=== PATIENT | female | born 1950 | race Caucasian/White ===

== ENCOUNTER 2018-02-10 12:51 | Outpatient (CLI) | payer MEDICARE | END 2018-02-10 12:52 | disposition home or self-care (01) | LOC: CP 12:51 | PROVIDERS: ATTEND Internal Medicine Critical Care Medicine | DX: J44.9 Chronic obstructive pulmonary disease, unspecified (principal); I26.99 Other pulmonary embolism without acute cor pulmonale | CPT/HCPCS: 94060; 94727; 94729 ==

== ENCOUNTER 2019-11-16 08:17 | Outpatient (CLI) | payer MEDICARE ==
--- NOTE | 2019-11-16 11:50 | PET ---
EXAM: PET/CT HISTORY: 69-year-old female with suspected lung cancer. Abnormal CT scan of the chest dated 09/26/2019 from [facility]. TECHNIQUE: PET scanning with CT attenuation correction was performed from the base of the brain to the proximal thighs following the intravenous administration of 11.2 millicuries [id number]. COMPARISON: None. CORRELATION: CT scan of the chest dated 09/26/2019 FINDINGS: There is hypermetabolic activity in the 2 cm suprahilar left upper lobe lung nodule noted on the CT s can with an SUV of 10.8. No hypermetabolic activity seen in the smaller pulmonary nodules seen on the CT scan. No sayda hypermetabolism is noted in the neck, chest, abdomen or pelvis. No hypermetabolic liver, adrenal or skeletal lesions are seen. There is physiologic activity in the GI and tracts and the visualized portions of the brain. The CT scan used for attenuation correction demonstrates no evidence of pericardial effusion or ascit es. There are small bilateral pleural effusions. There is colonic diverticulosis. IMPRESSION: Findings are highly suspicious for left upper lobe lung malignancy. Small bilateral pleural effusions.
== END 2019-11-16 08:18 | disposition home or self-care (01) ==
LOC: PET 08:17
PROVIDERS: ATTEND Internal Medicine Critical Care Medicine
DX: R91.8 Other nonspecific abnormal finding of lung field (principal); J90 Pleural effusion, not elsewhere classified
CPT/HCPCS: 78815; A9552

== ENCOUNTER 2019-11-24 07:49 | Day surgery (SDC) | payer MEDICARE ==
[2019-11-23 13:59] VITALS: BMI 22.3
[2019-11-24] MEDS ORDERED: Lidocaine 4% PF 5 ML AMP NEB SCH (09:30)
[2019-11-24] MEDS ORDERED: Sodium Chloride 0.9% 1,000 ML IV SCH (09:30)
[2019-11-24] MEDS ORDERED: Fentanyl 100 MCG/2 ML VIAL ONE (09:30)
[2019-11-24] MEDS ORDERED: PROPOFOL 200 MG/20 ML VIAL ONE (10:42)
--- NOTE | 2019-11-24 17:22 | OP ---
DATE OF PROCEDURE: 11/24/2019 PROCEDURE PERFORMED: Bronchoscopy. PREOPERATIVE DIAGNOSIS: Left upper lobe lung mass. POSTOPERATIVE DIAGNOSIS: Left upper lobe lung mass. ANESTHESIA: General anesthesia through LMA. DESCRIPTION OF PROCEDURE: Informed consent was obtained from the patient prior to the procedure. She understood the risks involved including bleeding, infection, external lung puncture, and agreed to proceed. Her Eliquis had been held for 2-1/2 days prior to the procedure. The patient was brought to the endoscopy suite and placed on cardiopulmonary monitoring by the Anesthesia Team. She was sedated and had an LMA placed into her oropharynx. An Olympus bronchoscope was placed through the LMA. The patient's vocal cords were of normal appearance. The trachea was of normal appearance. The right mainstem bronchus, right upper lobe, right middle lobe, right lower lobe were all normal in appearance. Left mainstem bronchus was normal. Left lower lobe was normal in appearance. The left lingular segment was normal in appearance. The apical posterior segment of the left upper lobe showed some narrowing. There was some cobblestoning of the mucosa in that area. A series of brushings were done under fluoroscopy in the apical posterior segment of left upper lobe. One endobronchial biopsy was done at the [place] to the apical posterior segment. She had profuse bleeding from that. Therefore, no other biopsies were attempted. The bleeding was self-limited and stopped. Some washings were obtained from the area. The scope was withdrawn. The LMA was removed. The patient was taken to recovery in stable condition. Job ID: [id number]
== END 2019-11-24 12:30 | disposition home or self-care (01) ==
LOC: SDC 07:49
PROVIDERS: ATTEND Internal Medicine Critical Care Medicine
PROC: 0BB78ZX Excision of Left Main Bronchus, Via Natural or Artificial Opening Endoscopic, Diagnostic (ICD-10-PCS; principal; 2019-11-24)
PROC: 0BBB8ZX Excision of Left Lower Lobe Bronchus, Via Natural or Artificial Opening Endoscopic, Diagnostic (ICD-10-PCS; 2019-11-24)
PROC: 0BD88ZX Extraction of Left Upper Lobe Bronchus, Via Natural or Artificial Opening Endoscopic, Diagnostic (ICD-10-PCS; 2019-11-24)
DX: R91.8 Other nonspecific abnormal finding of lung field (principal); J44.9 Chronic obstructive pulmonary disease, unspecified; F17.210 Nicotine dependence, cigarettes, uncomplicated; I10 Essential (primary) hypertension; Z79.01 Long term (current) use of anticoagulants; Z79.899 Other long term (current) drug therapy; Z86.711 Personal history of pulmonary embolism; Z86.718 Personal history of other venous thrombosis and embolism; Z99.89 Dependence on other enabling machines and devices
CPT/HCPCS: 76000; 88112; 88305; J2704; J3010; J7620

== ENCOUNTER 2020-06-19 09:02 | Outpatient (CLI) | payer MEDICARE ==
--- NOTE | 2020-06-19 10:58 | CT ---
CT OF THE CHEST WITH IV CONTRAST INDICATION: History of left upper lobe lung cancer status post radiation COMPARISON: PET/CT from [facility] dated November 16, 2019 FINDINGS: CHEST: Lungs: Left upper lobe suprahilar mass is slightly smaller measuring 1.9 x 1.1 cm were previously filemon sured approximately 2.1 x 1.6 cm. There is radiation fibrosis change involving the left upper lobe and superior segment of the left lower lobe. Specifically pulmonary nodule that demonstrate no hyperm etabolic uptake on prior PET/CT in the posterior segment of the right upper lobe is stable measuring 6 mm. Small subpleural spiculated pulmonary nodule in the posterior right upper lobe on tiara ge 25 of series 3 measures 4 mm. Severe emphysema is similar appearing. Pleural space: No pleural effusion or pneumothorax is demonstrated. Mediastinum: There is a 9 mm pretracheal lymph node, slightly larger than prior examination where filemon sured 7 mm. There is an enlarged precarinal lymph node measuring 1.4 cm previously measuring 1 cm. Upper abdomen:Stable right hepatic lobe and left renal cyst. Adrenal glands are normal appearing. The re are moderate vascular calcifications seen involving the visualized vasculature. Osseous structures: Interval healing anterolateral left third rib fracture and there is stable suspec khanh healed rib deformities involving the anterolateral right third through fifth ribs that were likely present on the prior exam. No suspicious osteolytic or osteoblastic lesion is seen involving t he visualized thoracolumbar spine or sternum. There is scattered degenerative and osteoarthritic changes. Soft tissues:Normal. IMPRESSION: 1. Findings most consistent with response to therapy. Left suprahilar mass has decreased in size. 2. Radiation induced pneumonitis and interstitial thickening of the left upper lobe and superior segm ent of the left lower lobe. 3. Nonspecific mildly enlarged mediastinal lymph nodes. Continued CT follow-up is recommended. Some o f the enlargement may be related to reactive lymphadenopathy from therapy. 4. Small spiculated pulmonary nodules the right upper lobe are stable. 5. Stable severe emphysema. 6. Right hepatic lobe and left renal cysts. 7. Interval healing anterolateral left rib fracture. Chronic healed right third through fifth rib fra ctures.
== END 2020-06-19 09:03 | disposition home or self-care (01) ==
LOC: SCSCT 09:02
PROVIDERS: ATTEND Radiology Radiation Oncology
DX: C34.12 Malignant neoplasm of upper lobe, left bronchus or lung (principal); R91.8 Other nonspecific abnormal finding of lung field; R59.0 Localized enlarged lymph nodes; J18.9 Pneumonia, unspecified organism; J43.9 Emphysema, unspecified; K76.89 Other specified diseases of liver; N28.1 Cyst of kidney, acquired; S22.32XD Fracture of one rib, left side, subsequent encounter for fracture with routine healing; Z92.3 Personal history of irradiation; Z87.81 Personal history of (healed) traumatic fracture
CPT/HCPCS: 71260; 82565

== ENCOUNTER 2020-07-08 14:19 | Outpatient (CLI) | payer MEDICARE ==
--- NOTE | 2020-07-08 16:16 | RAD ---
AP PELVIS FROGLEG LATERAL OF THE RIGHT HIP: Comparison: None FINDINGS: No definite acute fracture, subluxation is evident. There is mild arthrosis of the right hip. Small p hlebolith seen within the lower pelvis. There is diffuse osteopenia. There is posterior midline fusio n defect at L5 which is within normal limits. IMPRESSION: No acute osseous abnormality. POS: BH
== END 2020-07-08 14:20 | disposition home or self-care (01) ==
LOC: SCSRAD 14:19
PROVIDERS: ATTEND Radiology Radiation Oncology
DX: M25.551 Pain in right hip (principal); Z85.118 Personal history of other malignant neoplasm of bronchus and lung

== ENCOUNTER 2020-09-24 09:07 | Outpatient (CLI) | payer MEDICARE ==
[2020-09-24] MEDS ORDERED: Iopamidol-370 76% 500 ML 1 ML ONE (09:41)
--- NOTE | 2020-09-24 10:04 | CT ---
CT Chest W Con History: Lung cancer Comparison: Chest CT June 2020. PET/CT November 2019 Findings: Severe background emphysema. Slight increase peripheral left upper lobe consolidation. Anterior paratracheal lymph node axial image 39 measures 12 mm in short axis, previously 13 mm. Centr ally necrotic AP window lymph node axial image 35 measures 11 mm in short axis, previously 9 mm. Few foci of bronchial wall thickening and low-grade consolidation within the anterior segment left up per lobe likely posttreatment in nature. Using the same plane of reference the left perihilar soft tissue mass has not grown measuring up to 2 cm. Healing transversely oriented manubrial fracture. No thoracic spine fracture. Multiple old right rib fractures. No acute rib fracture. Healing left anterior third rib fracture. Ol d left posterior rib fractures. Calcified thyroid nodules bilaterally. No hepatic mass suspicious for malignancy is appreciated. Adrenal glands are unremarkable. Heart size is enlarged. Pulmonary arteries are enlarged. 6 mm nodule posterior aspect right upper lobe is similar. Scattered peripheral micronodules are simil ar, some with a pleural tail. Impression: 1. Stable disease with size unchanged left upper lobe mass and no significant enlargement of mediasti nal adenopathy. 2. Mild progressive postradiation change left upper lobe. 3. No new suspicious pulmonary nodule or enlargement of known pulmonary nodules. 4. Healing transversely oriented manubrial fracture.
== END 2020-09-24 09:08 | disposition home or self-care (01) ==
LOC: BICCT 09:07
PROVIDERS: ATTEND Radiology Radiation Oncology
DX: C34.12 Malignant neoplasm of upper lobe, left bronchus or lung (principal); M25.551 Pain in right hip; S22.21XD Fracture of manubrium, subsequent encounter for fracture with routine healing; R91.8 Other nonspecific abnormal finding of lung field; Z92.3 Personal history of irradiation; Z98.890 Other specified postprocedural states
CPT/HCPCS: 71260; 82565; Q9967

== ENCOUNTER 2020-09-30 09:56 | Outpatient (CLI) | payer MEDICARE ==
--- NOTE | 2020-09-30 14:50 | NM ---
Radionucleotide bone scan HISTORY: Right hip and leg pain for one month. Fall approximately one year ago onto the left side. Erica ng cancer. FINDINGS: Horizontal uptake at the manubrial sternum correlates with a healing fracture on the CT gillian [address] 09/24/2020 that was not present on the CT from 06/19/2020. Uptake associated with a healing fracture at the anterior aspect of the left third rib is also present. Uptake about the ethmoid air c ells likely related to sinus disease At the medial aspect of the right iliac body, abutting the sacroiliac joint is a vertically oriented, somewhat irregular peripheral area of increased activity with a lucent center. It extends inferiorly to approach the right acetabulum. IMPRESSION : Subacute and old fractures of the manubrium and left third rib. The abnormality involving the right pelvis, especially in the setting of a new sternal fracture, is m ore likely related to trauma than to a metastasis. The most efficient next exam would be a CT pelvis noncontrast to help differentiate. Findings were discussed with Dr. Ramirez at the time of the exam. CT pelvis will be scheduled.
== END 2020-09-30 09:57 | disposition home or self-care (01) ==
LOC: NM 09:56
PROVIDERS: ATTEND Radiology Radiation Oncology
DX: C34.12 Malignant neoplasm of upper lobe, left bronchus or lung (principal); M25.551 Pain in right hip; R94.8 Abnormal results of function studies of other organs and systems
CPT/HCPCS: 78306; A9503

== ENCOUNTER 2020-10-07 15:47 | Outpatient (CLI) | payer MEDICARE ==
--- NOTE | 2020-10-07 16:24 | CT ---
CT pelvis noncontrast HISTORY: Abnormal bone scan. Pelvic pain. Lung cancer. FINDINGS: Centered within the right iliac body, a destructive, expansile soft tissue density mass filemon sures up to 4.9 cm length by 4.3 cm depth by 3.2 cm width and extends into the sacroiliac joint. It destroys the anterior cortex of the overlying iliac bone and extends into the right iliacus muscle. T his is in the area of abnormality on bone scan. No other bone lesions are apparent. There is calcification within the arterial structures. Cyst at th e inferior pole of the left kidney is 2.7 cm oblique diameter on the axial images. Diverticula arise from the partially visualized colon without adjacent inflammation. IMPRESSION : Large destructive mass involving the right iliac bone with extension into the right iliacus muscle. G iven this metastatic focus, the left rib and sternal abnormalities on recent bone scan could also represent pathologic fractures.
== END 2020-10-07 15:48 | disposition home or self-care (01) ==
LOC: BICCT 15:47
PROVIDERS: ATTEND Radiology Radiation Oncology
DX: M25.559 Pain in unspecified hip (principal); C34.12 Malignant neoplasm of upper lobe, left bronchus or lung; M89.8X8 Other specified disorders of bone, other site
CPT/HCPCS: 72192

== ENCOUNTER 2020-10-18 08:25 | Day surgery (SDC) | payer MEDICARE ==
[2020-10-17 12:58] VITALS: BMI 22.1
[2020-10-18 08:54] LABS: #Eosinphils 0.2 thou/uL (0.0-0.7); #Neutrophils 6.2 thou/uL (1.40-6.50); %Basophils 0.4 % (0.0-1.0); %Lymphocytes 21.3 % (21.0-51.0); %Monocytes 10.2 % (0.0-10.0); %Neutrophils 66.1 % (42.0-75.0); Mean Corpuscular HGB CONC 33.2 g/dL (32.0-36.0); Mean Corpuscular Hemoglobin 30.6 pg (27.0-31.0); Mean Corpuscular Volume 92.2 fL (78.0-98.0); Mean Platelet Volume 6.9 fL (7.4-10.4); Platelet Count 241 thou/uL (130-400); RBC Distribution Width 12.3 % (11.5-14.5); Red Blood Cell (RBC) Count 4.57 mill/uL (4.20-5.40); White Blood Cell (WBC) Count 9.3 thou/uL (4.8-10.8)
[2020-10-18 09:04] LABS: PTT 25.5 sec (22.9-36.1); Prothrombin Time 13.5 sec (12.0-14.7)
--- NOTE | 2020-10-18 11:23 | CT ---
CT-guided biopsy right iliac bone mass Conscious sedation: Approximately 40 minutes spent with the patient for conscious sedation. HISTORY: Bone mass. Lung cancer. FINDINGS: After explaining the procedure and answering all questions, limited CT imaging of the pelvi s was performed with patient prone. Sterile technique, buffered local anesthesia, CT guidance, and a posterior approach were used to care fully advance an 11-gauge bone biopsy needle through the posterior cortex of the iliac bone, directed towards the destructive soft tissue mass in the iliac bone body. Needle directed away from t he sacroiliac joint. As instructed by Dr. Paredes from pathology, a small amount of blood aspirate was obtained (only a sm all amount would aspirate). An 18-gauge core specimen was then obtained through the trocar needle. As instructed by Dr. Paredes from pathology, 11-gauge core over a length of 2.5 cm was obtained with the bone biopsy needle and drill. As per routine technique with the bone system and as clearly stated prior to retrieval of the 11-gauge specimen, the needle was removed. Clotted blood and very li mited tissue was acquired. Postprocedure imaging shows no evidence of complication. Patient tolerated the procedure well and was returned to the holding area in good condition for [employer] [facility] monitoring. IMPRESSION : Technically successful CT-guided biopsy right iliac bone mass.
[2020-10-18 15:39] VITALS: BP 153/85; TEMP 99.4
--- NOTE | 2020-10-18 15:54 | CT ---
CT-guided biopsy right iliac bone mass Conscious sedation: Approximately 40 minutes spent with the patient for conscious sedation. HISTORY: Bone mass. Lung cancer. FINDINGS: After explaining the procedure and answering all questions, limited CT imaging of the pelvi s was performed with patient prone. Sterile technique, buffered local anesthesia, CT guidance, and a posterior approach were used to care fully advance an 11-gauge bone biopsy needle through the posterior cortex of the iliac bone, directed towards the destructive soft tissue mass in the iliac bone body. Needle directed away from t he sacroiliac joint. As instructed by Dr. Paredes from pathology, a small amount of blood aspirate was obtained (only a sm all amount would aspirate). An 18-gauge core specimen was then obtained through the trocar needle. As instructed by Dr. Paredes from pathology, 11-gauge core over a length of 2.5 cm was obtained with the bone biopsy needle and drill. As per routine technique with the bone system and as clearly stated prior to retrieval of the 11-gauge specimen, the needle was removed. Clotted blood and very li mited tissue was acquired. Postprocedure imaging shows no evidence of complication. Patient tolerated the procedure well and was returned to the holding area in good condition for [facility] er monitoring. IMPRESSION : Technically successful CT-guided biopsy right iliac bone mass. Transcribed Date/Time: 10/18/2020 3:54 PM
== END 2020-10-18 11:45 | disposition home or self-care (01) ==
LOC: CT 08:25
PROVIDERS: ATTEND Radiology Radiation Oncology
PROC: 0QB23ZX Excision of Right Pelvic Bone, Percutaneous Approach, Diagnostic (ICD-10-PCS; principal; 2020-10-18)
DX: C34.12 Malignant neoplasm of upper lobe, left bronchus or lung (principal); C79.51 Secondary malignant neoplasm of bone; J44.1 Chronic obstructive pulmonary disease with (acute) exacerbation; I10 Essential (primary) hypertension; Z79.01 Long term (current) use of anticoagulants; Z79.899 Other long term (current) drug therapy; Z86.711 Personal history of pulmonary embolism; Z86.718 Personal history of other venous thrombosis and embolism; Z87.891 Personal history of nicotine dependence; Z88.0 Allergy status to penicillin
CPT/HCPCS: 20225; 36415; 77012; 85025; 85610; 85730; 88307; 88341; 88342

== ENCOUNTER 2020-10-21 18:04 | Inpatient (IN) | payer MEDICARE ==
[~2020-10-21 18:04] MED LIST: Fentanyl 100 MCG/2 ML VIAL ONE; Iopamidol-370 76% 500 ML 1 ML ONE; Midazolam HCl 2 mg/2 ml Vial ONE; Sodium Bicarbonate 2.5 MEQ/5 ML VIAL ONE
[2020-10-21 19:03] LABS: #Eosinphils 0.1 thou/uL (0.0-0.7); #Lymphocytes 1.5 thou/uL (1.20-3.40); #Monocytes 0.8 thou/uL (0.11-0.59); #Neutrophils 6.5 thou/uL (1.40-6.50); %Basophils 0.1 % (0.0-1.0); %Eosinophils 1.5 % (0.0-10.0); %Lymphocytes 16.4 % (21.0-51.0); %Monocytes 8.8 % (0.0-10.0); %Neutrophils 73.2 % (42.0-75.0); Hemoglobin 14.4 g/dL (12.0-16.0); Mean Corpuscular HGB CONC 32.8 g/dL (32.0-36.0); Mean Corpuscular Hemoglobin 30.2 pg (27.0-31.0); Mean Corpuscular Volume 92.1 fL (78.0-98.0); Mean Platelet Volume 7.4 fL (7.4-10.4); Platelet Count 222 thou/uL (130-400); RBC Distribution Width 12.6 % (11.5-14.5); Red Blood Cell (RBC) Count 4.78 mill/uL (4.20-5.40); White Blood Cell (WBC) Count 8.9 thou/uL (4.8-10.8)
[2020-10-21 19:19] LABS: ALT (SGPT) 10 U/L (8-55); AST (SGOT) 18 U/L (5-34); Albumin 3.7 g/dL (3.4-4.8); Alkaline Phosphatase 79 U/L (40-110); Anion Gap 15 mmol/L (10-20); BUN (Urea Nitrogen) 26 mg/dL (9.8-20.1); Bilirubin, Total 0.4 mg/dL (0.2-1.2); Calc. Creatinine Clearance 0 mL/min (70-130); Calcium 9.4 mg/dL (7.8-10.44); Carbon Dioxide 28 mmol/L (23-31); Chloride 98 mmol/L (98-107); Globulin 2.4 g/dL (2.4-3.5); Glucose 158 mg/dL (83-110); Potassium 4.4 mmol/L (3.5-5.1); Protein, Total 6.1 g/dL (6.0-8.3); Sodium 137 mmol/L (136-145)
[2020-10-21 19:41] LABS: CKMB 4.9 ng/mL (0-6.6)
--- NOTE | 2020-10-21 20:12 | CT ---
CT angiogram chest: 10/21/2020 COMPARISON: Chest CT 09/24/2020 HISTORY: Lung cancer, shortness of breath, assess for pulmonary arterial embolism TECHNIQUE: Axial CT imaging at 2.5 mm intervals through the chest with IV contrast using CT angiogram protocol. Coronal and sagittal 3-D reformatted imaging obtained. FINDINGS: No axillary lymphadenopathy. There is an enlarged subcarinal node on axial image 46 measuring 1.7 cm in AP dimension. There is an ill-defined suprahilar mass on the left consistent with the patient's history of lung cancer measuring approximately 2.5 cm in AP dimension, slightly more conspicuous than on the 09/24/2020 exam at which time soft tissue in this region measured in the 1.7 cm range. Soft tissue density encircles and somewhat narrows the pulmonary artery supplying the left upper lobe. No pneumothorax is noted on either side. There is extensive emphysematous changes throughout both faviola gs with an upper lobe predominance. There is an inferior left upper lobe anterior pleural-based nodule on image 49 measuring 9 mm, not si gnificantly changed. There is an upper lobe pulmonary nodule on the right posteriorly on axial image 30 measuring 6-7 mm, nonspecific and unchanged. There is a 4-5 mm lateral right upper lobe pleural-based nodule on image 43, unchanged. Anterior superior new partial opacification of the right middle lobe noted on axial image 62. Probable mixing artifact noted within the pulmonary arterial vasculature within bilateral main pulmon poppy arteries. There is a huge pulmonary embolism involving the distal aspect of the left lower lobe lobar pulmonary artery with extension into multiple segmental and subsegmental branches of the left l ower lobe. There is acute pulmonary arterial embolism within the distal aspect of the right middle lobe lobar pulmonary artery with extension into multiple segmental pulmonary artery branches. Distal posterior segmental and subsegmental acute right lower lobe pulmonary arterial embolism present. Distal right upper lobe segmental and subsegmental pulmonary arterial embolism noted as well. Limited assessment of the upper abdomen demonstrates atherosclerotic calcification of the abdominal a calos and its branches. No acute osseous abnormality is evident. There is subtle sclerosis involving the anterior aspect of t he right third and fourth rib as well as the anterior aspect of the left third rib which may signify osseous metastatic disease. IMPRESSION: Multifocal bilateral acute pulmonary arterial embolism as detailed above. Left hilar/suprahilar mass consistent with the patient's history of bronchogenic carcinoma, slightly more conspicuous than on the prior exam. Enlarged subcarinal lymph node may be metastatic in nature. New opacity in the right middle lobe which may signify infectious pneumonitis or pulmonary infarction . Bilateral pulmonary nodules, which may be metastatic in nature. Short-term follow-up imaging of the chest following treatment advised. Dr. Mtz made aware at 8:10 PM 10/21/2020
[2020-10-21] MEDS ORDERED: Enoxaparin Sodium 60 MG/0.6 ML SYRINGE ONE (21:29)
[2020-10-21] MEDS ORDERED: Acetaminophen 325 MG TAB PO PRN ×2 (22:00→22:09)
[2020-10-21] MEDS ORDERED: Ondansetron PF 4 MG/2 ML Vial IVP PRN ×2 (22:00→22:09)
[2020-10-21] MEDS ORDERED: Ondansetron ODT 4 MG TAB SL PRN (22:00)
[2020-10-21] MEDS ORDERED: hydrALAZINE 20 MG/ML VIAL SLOW IVP PRN (22:09)
[2020-10-21] MEDS ORDERED: cloNIDine 0.1 MG TAB PO PRN (22:09)
[2020-10-21] MEDS ORDERED: Guaifenesin DM 100-10/5 ML UDCUP PO PRN (22:09)
[2020-10-21] MEDS ORDERED: Promethazine HCl 12.5 MG in Sodium Chloride 0.9% 50 ML IVPB PRN (22:09)
[2020-10-21] MEDS ORDERED: ALPRAZolam 0.25 MG TAB PO PRN (22:09)
[2020-10-21] MEDS ORDERED: Labetalol HCl 100 MG/20 ML VIAL SLOW IVP PRN (22:09)
[2020-10-21] MEDS ORDERED: Electrolyte Replacement Protocol 1 EACH FS PRN (22:15)
[2020-10-21] MEDS ORDERED: Sodium Chloride 0.9% 1,000 ML IV SCH (22:15)
--- NOTE | 2020-10-21 22:18 | PDOC.HHP ---
Hospitalist HPI - History of Present Illness Shortness of breath History of Present Illness: patient is a 70 year old female with PMH of lung cancer, PE on eliquis who presents to ED for shortness of breath. She has a history of PE several years ago and has been stable on eliquis since then, however last week she had to stop eliquis for 5 days for bone marrow biopsy, which she had 4 days ago, and went back on eliquis last night however today developed shortness of breath and dizziness worse with exertion and standing. She had a CTA in the ED and found multifocal bilateral pulmonary embolism as well as L hilar mass, RML opacity amongst other assorted findings. Patient given therapeutic lovenox and re commended for admission. Patient has history of COPD on 2 L nasal cannula at home, as well as lung cancer s/p radiation. She denies chest pain, palpitations, syncope, fevers, chills, leg pain. Hospitalist ROS - Review of Systems Constitutional: denies: fever, chills, sweats, weakness, malaise, other Eyes: denies: pain, vision change, conjunctivae inflammation, eyelid inflammation, redness, other ENT: denies: ear pain, ear discharge, nose pain, nose discharge, nose congestion, mouth pain, mouth swelling, throat pain, throat swelling, other Respiratory: reports: shortness of breath. denies: cough, dry, hemoptysis, SOB with excertion, pleuritic pain, sputum, wheezing, other Cardiovascular: denies: chest pain, palpitations, orthopnea, paroxysmal noc. dyspnea, edema, light headedness, other Gastrointestinal: denies: nausea, vomiting, abdominal pain, diarrhea, constipation, melena, hematochezia, other Genitourinary: denies: dysuria, frequency, incontinence, hematuria, retention, other Musculoskeletal: denies: neck pain, shoulder pain, arm pain, back pain, hand pain, leg pain, foot pain, other Skin: denies: rash, lesions, shawnee, bruising, other Neurological: denies: weakness, numbness, incoordination, change in speech, confusion, seizures, other All other systems reviewed; all pertinent +/- noted in HPI/Subj - Medication Medications: escitalopram oxalate WedOct 21, 2020 18:54 MAURICIO Neely, Mita tablet : Strength - 10 mg : ORAL Patient Dose: 10 mg Oral once a day. [facility] WedOct 21, 2020 18:55 MAURICIO Neely, Mita tablet : Strength - 5 mg : ORAL Patient Dose: 5 mg Oral once a day. Hospitalist History - Past Medical History Other Medical History: LUNG CA W/ RADIATION, COPD, PE, DVT,. - Past Surgical History Other Surgical History: HIP BIOPSY - Family History Family History: reports: no pertinent history - Social History Smoking Status: Former smoker - Exam General Appearance: NAD, awake alert Eye: PERRL, anicteric sclera ENT: normocephalic atraumatic, no oropharyngeal lesions, moist mucosa Neck: supple, symmetric, no JVD, no thyromegaly, no lymphadenopathy, no carotid bruit Heart: RRR, no murmur, no gallops, no rubs, normal peripheral pulses Respiratory: CTAB, no wheezes, no rales, no ronchi, normal chest expansion, no tachypnea, normal percussion Gastrointestinal: soft, non-tender, non-distended, normal bowel sounds, no palpable masses, no hepatomegaly, no splenomegaly, no bruit Extremities: no cyanosis, no clubbing, no edema Skin: normal turgor, no lesions, no rashes Neurological: cranial nerve grossly intact, normal sensation to touch, no weakness, no focal deficits, no new deficit Musculoskeletal: normal tone, normal strength, no muscle wasting Psychiatric: normal affect, normal behavior, A&O x 3 Hospitalist Results - Labs Result Diagrams: 10/21/20 18:46 10/21/20 18:46 Lab results: WBC 8.9 thou/uL (4.8-10.8) 10/21/20 18:46 Hgb 14.4 g/dL (12.0-16.0) 10/21/20 18:46 Hct 44.0 % (36.0-47.0) 10/21/20 18:46 MCV 92.1 fL (78.0-98.0) 10/21/20 18:46 Plt Count 222 thou/uL (130-400) 10/21/20 18:46 Neutrophils % 73.2 % (42.0-75.0) 10/21/20 18:46 Sodium 137 mmol/L (136-145) 10/21/20 18:46 Potassium 4.4 mmol/L (3.5-5.1) 10/21/20 18:46 Chloride 98 mmol/L (98-107) 10/21/20 18:46 Carbon Dioxide 28 mmol/L (23-31) 10/21/20 18:46 BUN 26 mg/dL (9.8-20.1) H 10/21/20 18:46 Creatinine 0.81 mg/dL (0.6-1.1) 10/21/20 18:46 Glucose 158 mg/dL (83-110) H 10/21/20 18:46 Calcium 9.4 mg/dL (7.8-10.44) 10/21/20 18:46 Total Bilirubin 0.4 mg/dL (0.2-1.2) 10/21/20 18:46 AST 18 U/L (5-34) 10/21/20 18:46 ALT 10 U/L (8-55) 10/21/20 18:46 Alkaline Phosphatase 79 U/L (40-110) 10/21/20 18:46 CK-MB (CK-2) 4.9 ng/mL (0-6.6) 10/21/20 18:46 Troponin I 0.094 ng/mL (< 0.028) H 10/21/20 18:46 B-Natriuretic Peptide 2709.0 pg/mL (0-100) H 10/21/20 18:46 Serum Total Protein 6.1 g/dL (6.0-8.3) 10/21/20 18:46 Albumin 3.7 g/dL (3.4-4.8) 10/21/20 18:46 Additional comment: VITAL SIGNS WedOct 21, 2020 18:05 MAURICIO Talley, Henna BP: 125/72 MAP: 92 Resp: 22 Temp: 98.2 (Oral) Pain: 2 Time: 10/21/2020 18:05. CT angiogram chest: 10/21/2020 COMPARISON: Chest CT 09/24/2020 HISTORY: Lung cancer, shortness of breath, assess for pulmonary arterial embolism TECHNIQUE: Axial CT imaging at 2.5 mm intervals through the chest with IV contrast using CT angiogram protocol. Coronal and sagittal 3-D reformatted imaging obtained. FINDINGS: No axillary lymphadenopathy. There is an enlarged subcarinal node on axial image 46 measuring 1.7 cm in AP dimension. There is an ill-defined suprahilar mass on the left consistent with the patients history of lung cancer measuring approximately 2.5 cm in AP dimension, slightly more conspicuous than on the 09/24/2020 exam at which time soft tissue in this region measured in the 1.7 cm range. Soft t issue density encircles and somewhat narrows the pulmonary artery supplying the left upper lobe. No pneumothorax is noted on either side. There is extensive emphysematous changes throughout both faviola gs with an upper lobe predominance. There is an inferior left upper lobe anterior pleural-based nodule on image 49 measuring 9 mm, not si gnificantly changed. There is an upper lobe pulmonary nodule on the right posteriorly on axial image 30 measuring 6-7 mm, nonspecific and unchanged. There is a 4-5 mm lateral right upper lobe pleural-based nodule on image 43, unchanged. Anterior superior new partial opacification of the right middle lobe noted on axial image 62. Probable mixing artifact noted within the pulmonary arterial vasculature within bilateral main pulmon poppy arteries. There is a huge pulmonary embolism involving the distal aspect of the left lower lobe lobar pulmonary artery with extension into multiple segmental and subsegmental branches of the left l ower lobe. There is acute pulmonary arterial embolism within the distal aspect of the right middle lobe lobar pulmonary artery with extension into multiple segmental pulmonary artery branches. Distal posterior segmental and subsegmental acute right lower lobe pulmonary arterial embolism present. Distal right upper lobe segmental and subsegmental pulmonary arterial embolism noted as well. Limited assessment of the upper abdomen demonstrates atherosclerotic calcification of the abdominal a calos and its branches. No acute osseous abnormality is evident. There is subtle sclerosis involving the anterior aspect of t he right third and fourth rib as well as the anterior aspect of the left third rib which may signify osseous metastatic disease. IMPRESSION: Multifocal bilateral acute pulmonary arterial embolism as detailed above. Left hilar/suprahilar mass consistent with the patients history of bronchogenic carcinoma, slightly more conspicuous than on the prior exam. Enlarged subcarinal lymph node may be metastatic in nature. New opacity in the right middle lobe which may signify infectious pneumonitis or pulmonary infarction . Bilateral pulmonary nodules, which may be metastatic in nature. Short-term follow-up imaging of the chest following treatment advised. Dr. Mtz made aware at 8:10 PM 10/21/2020 Hospitalist H&P A/P - Problem (1) Lung cancer Code(s): C34.90 - MALIGNANT NEOPLASM OF UNSP PART OF UNSP BRONCHUS OR LUNG Status: Acute (2) Pulmonary embolism Code(s): I26.99 - OTHER PULMONARY EMBOLISM WITHOUT ACUTE COR PULMONALE Status: Acute (3) Pneumonia Code(s): J18.9 - PNEUMONIA, UNSPECIFIED ORGANISM Status: Acute - Plan Plan: Patient is a 70 year old female with PMH of lung cancer, PE on eliquis who presents to ED for shortness of breath. # pulmonary embolism # history of lung cancer last week she had to stop eliquis for 5 days for bone marrow biopsy, this was probably cause of recurrence. today developed shortness of breath and dizziness worse with exertion and standing. CTA in the ED and found multifocal bilateral pulmonary embolism amongst other findings. - admit to floor - start lovenox therapeutic dosing, hold eliquis - consult heme/onc - echo # right middle lobe opacity - will treat empirically for pneumonia # DVT/GI ppx full code
[2020-10-21] MEDS ORDERED: Azithromycin 500 MG in Syringe 0 ML IVPB ONE ×2 (22:46→23:56)
[2020-10-21] MEDS ORDERED: cefTRIAXone\\ROCEPHIN 1 GM in Sodium Chloride 0.9% 100 ML IVPB SCH ×2 (23:00→23:59)
[2020-10-21 23:06] VITALS: BMI 22.8
[2020-10-21] MEDS ORDERED: Azithromycin 500 MG in Sodium Chloride 0.9% 250 ML 250 ML IVPB SCH ×2 (23:30→23:59)
[2020-10-22 04:47] LABS: #Eosinphils 0.1 thou/uL (0.0-0.7); #Lymphocytes 1.4 thou/uL (1.20-3.40); #Monocytes 1.1 thou/uL (0.11-0.59); #Neutrophils 6.7 thou/uL (1.40-6.50); %Basophils 0.3 % (0.0-1.0); %Eosinophils 1.2 % (0.0-10.0); %Monocytes 11.5 % (0.0-10.0); Hemoglobin 13.4 g/dL (12.0-16.0); Mean Corpuscular Hemoglobin 31.5 pg (27.0-31.0); Mean Corpuscular Volume 92.5 fL (78.0-98.0); Mean Platelet Volume 7.8 fL (7.4-10.4); Platelet Count 182 thou/uL (130-400); RBC Distribution Width 12.7 % (11.5-14.5); Red Blood Cell (RBC) Count 4.24 mill/uL (4.20-5.40); White Blood Cell (WBC) Count 9.4 thou/uL (4.8-10.8)
[2020-10-22 05:05] LABS: Anion Gap 16 mmol/L (10-20); BUN (Urea Nitrogen) 22 mg/dL (9.8-20.1); Calc. Creatinine Clearance 70 mL/min (70-130); Calcium 8.9 mg/dL (7.8-10.44); Carbon Dioxide 22 mmol/L (23-31); Chloride 102 mmol/L (98-107); Glucose 134 mg/dL (83-110); Magnesium 1.8 mg/dL (1.6-2.6); Potassium 4.4 mmol/L (3.5-5.1); Sodium 136 mmol/L (136-145)
[2020-10-22 06:03] LABS: SARS-CoV-2 MS2 Positive; SARS-CoV-2 N Gene Negative; SARS-CoV-2 S Gene Negative; SARS-CoV-2 by NAA Not Detected (NotDetected); SARS-CoV-2 orf1ab Negative
[2020-10-22] MEDS ORDERED: Magnesium 2 GM/50 ML 2 GM in Premix Bag 1 BAG IVPB SCH (08:00)
[2020-10-22] MEDS: Famotidine 20 MG TAB PO SCH ×2 (08:13→20:08)
[2020-10-22] MEDS: Polyethylene Glycol 3350 17 GM Packet PO SCH (08:13)
[2020-10-22] MEDS: Enoxaparin Sodium 60 MG/0.6 ML SYRINGE SC SCH ×2 (08:14→20:08)
[2020-10-22] MEDS: Nebivolol HCl 5 MG TAB PO SCH (08:14)
[2020-10-22] MEDS: Citalopram 10 MG TAB PO SCH (08:15)
--- NOTE | 2020-10-22 08:56 | PDOC.HOSPP ---
- Subjective Encounter Date: 10/22/20 Encounter Time: 11:50 Subjective: Patient feeling a little better. Shortness of breath still there but improved some. No chest pain currently. - Objective Vital Signs & Weight: Vital Signs (12 hours) Temp Pulse Resp BP Pulse Ox 10/22/20 07:59 97.8 F 84 20 131/84 91 L 10/22/20 05:14 93 L 10/22/20 04:00 97.3 F L 76 15 121/76 93 L 10/22/20 01:35 99 24 H 130/82 90 L 10/22/20 00:15 90 L 10/21/20 23:39 99 115/82 10/21/20 22:02 98.6 F 88 22 H 134/94 H 88 L Weight Weight 133 lb 6.4 oz I&O: 10/21/20 10/22/20 10/23/20 06:59 06:59 06:59 Intake Total 480 Output Total 450 Balance 30 Result Diagrams: 10/22/20 04:29 10/22/20 04:29 Hospitalist ROS - Review of Systems Constitutional: denies: fever, chills Respiratory: reports: shortness of breath, SOB with excertion. denies: cough Cardiovascular: denies: chest pain, palpitations Gastrointestinal: denies: nausea, vomiting, abdominal pain - Medication Medications: Active Medications Generic Name Dose Route Start Last Admin Trade Name Freq PRN Reason Stop Dose Admin Albuterol/Ipratropium 3 ml 10/22/20 01:00 10/22/20 07:30 Ipratropium/Albuterol Sulfate 3 Ml Neb NEB 3 ml [id number] QUINN Administration Citalopram Hydrobromide 10 mg 10/22/20 09:00 10/22/20 08:15 Citalopram 10 Mg Tab PO 10 mg DAILY QUINN Administration Enoxaparin Sodium 60 mg 10/22/20 09:00 10/22/20 08:14 Enoxaparin Sodium 60 Mg/0.6 Ml Syringe SC 60 mg 0900,2100 QUINN Administration Famotidine 20 mg 10/22/20 09:00 10/22/20 08:13 Famotidine 20 Mg Tab PO 20 mg BID QUINN Administration Magnesium Sulfate 2 gm/ Device 50 mls @ 50 mls/hr 10/22/20 08:00 10/22/20 08:12 IVPB 10/22/20 10:00 50 mls NOW QUINN Administration Nebivolol 5 mg 10/22/20 09:00 10/22/20 08:14 Nebivolol Hcl 5 Mg Tab PO 5 mg DAILY QUINN Administration Polyethylene Glycol 17 gm 10/22/20 09:00 10/22/20 08:13 Polyethylene Glycol 3350 17 Gm Packet PO Not Given DAILY QUINN - Exam General Appearance: NAD, awake alert ENT: moist mucosa Heart: RRR, no murmur, no gallops, no rubs Respiratory: CTAB, no wheezes, no rales, no ronchi Gastrointestinal: soft, non-tender, non-distended, normal bowel sounds Psychiatric: normal affect, normal behavior, A&O x 3 Hosp A/P - Plan Patient is a 70 year old female with PMH of lung cancer, PE on eliquis who presents to ED for shortness of breath. # pulmonary embolism # history of lung cancer last week she had to stop eliquis for 5 days for bone marrow biopsy, this was probably cause of recurrence. today developed shortness of breath and dizziness worse with exertion and standing. CTA in the ED and found multifocal bilateral pulmonary embolism amongst other findings. - admit to floor - started lovenox therapeutic dosing, holding eliquis, will possibly need to resume at a higher dose - consult heme/onc - echo # right middle lobe opacity - will treat empirically for pneumonia, had possible reaction to azithromycin so switch that to doxycycline # DVT/GI ppx full code
--- NOTE | 2020-10-22 12:45 | PQF ---
CLINICAL DOCUMENTATION CLARIFICATION FORM: Dear Dr. Acuna Date: 10/22/20 Please exercise your independent, professional judgment in responding to the clarification form. Clinical indicators are provided on the bottom of this form for your review. Please check appropriate box(es): [ ] Acute Respiratory Failure: [ ] with Hypoxia [ ] with Hypercapnia [ X ] Acute On Chronic Respiratory Failure: [ X ] with Hypoxia [ ] with Hypercapnia [ ] Chronic Respiratory Failure only [ ] with Hypoxia [ ] with Hypercapnia [ ] Hypoxia [ ] Other diagnosis [ ] Unable to determine In addition, please specify: Present on Admission (POA): [ X ] Yes [ ] No [ ] Unable to determine For continuity of documentation, please document condition throughout progress notes and discharge summary. Thank You. To be completed by CDI/Coding staff for physician review: CLINICAL INDICATORS - SIGNS / SYMPTOMS / LABS / RESULTS AND LOCATION IN MR ER NOTE: "PRESENTS FOR SHORTNESS OF BREATH, DIZZINESS." "SHE GETS SEVERELY LIGHTHEADED AND FEELS LIKE SHE IS GOING TO PASS OUT." RR 22 SATS 82% ON 2L (ER NOTE) SATS 88% ON 4L (ER NOTE) RISK FACTOR / RESULTS AND LOCATION IN MR LUNG CA (ER NOTE; H&P) H/O COPD on 2L @ HOME (ER/H&P) FORMER SMOKER (ER NOTE) ADMIT WITH PE (H&P- ATERNO / H&P) TREATMENTS / RESULTS AND LOCATION IN MR LOVENOX (ER-PRESENT) DUONEBS (START 10/22) IV AZITHROMYCIN (10/22) IV ROCEPHIN (10/22) Acute Respiratory Failure: ABG pH < 7.35 or > 7.45; Decreased oxygen saturation (<90% room air or < 95% on oxygen); PCO2 > 50 mm Hg; PO2 < 60 mm Hg; Labored or rapid respirations ARDS: Dx Criteria [[place] ARDS]: Respiratory symptoms within one week of a known clinical insult (e.g. shock, infection, surgery, trauma) Bilateral opacities in CXR/Chest CT not due to CHF or fluid CDS Signature: Ann Montes De Oca RN Phone #: [phone] Date: 10/22/20 MARCIE
[2020-10-22] MEDS ORDERED: Magnevist 469MG/ML 20 ML VIAL ONE (14:01)
[2020-10-22] MEDS: Lorazepam 1 MG TAB PO PRN ×2 (14:58→20:08)
--- NOTE | 2020-10-22 16:22 | MRI ---
Exam: Brain MRI with and without contrast HISTORY: Evaluate for metastatic lung cancer. COMPARISON: None FINDINGS: Gradient echo sequence: No hemorrhage Calvarium: Appropriate T1 marrow signal intensity Midline brain parenchyma: Unremarkable Cerebrum:No evidence of a parenchymal mass on the noncontrast sequences. No midline shift. Basilar ci sterns are patent. Age-appropriate brain volume. Cortical sorensen-white matter differentiation is preserved. T2 and FLAIR white matter hyperintensities due to chronic small vessel ischemic change. Ventricles: No evidence of hydrocephalus. Sinuses and mastoid air cells: Mild mucosal thickening of the paranasal sinuses. Diffusion: Central arterial flow is maintained. Absent restricted diffusion. Postcontrast images:There is a small focus of 0.4 cm enhancement along the posterior left corpus call osum. Findings may represent a small vascular lesion. However, developing metastatic deposit cannot be entirely excluded. Location is somewhat atypical for intracranial metastases. IMPRESSION: 1. 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 As a conservative measure, a three-month follow-up MRI is recommended to exclude a developing intracranial metastatic deposit.
[2020-10-22] MEDS: cefTRIAXone\\ROCEPHIN 1 GM in Sodium Chloride 0.9% 100 ML IVPB SCH (20:07)
[2020-10-22] MEDS: Doxycycline 100 MG CAP PO SCH (20:07)
[2020-10-22] MEDS ORDERED: Azithromycin 500 MG in Sodium Chloride 0.9% 250 ML 250 ML IVPB SCH (21:00)
[2020-10-22] MEDS ORDERED: Azithromycin 500 MG in Syringe 0 ML IVPB SCH (21:00)
--- NOTE | 2020-10-22 21:33 | CON ---
DATE OF CONSULTATION: REASON FOR CONSULT: PE and lung cancer. HISTORY OF PRESENT ILLNESS: Ms. Burgess is a 70-year-old female, who was diagnosed with clinical stage IA T1c N0 M0 lung cancer of the left upper lobe in November 2019. She underwent radiation therapy, which she completed in January. She was followed by Dr. Banuelos and was seen in mid September. She complained of right hip pain, which was causing difficulty walking. She underwent a bone scan, which showed uptake in the medial aspect of the right iliac body. It also showed old fractures in the rib and sternum. She then underwent a pelvis CT, which showed a large destructive mass involving the right ilium bone with extension into the right iliacus muscle. There is also question whether the left rib and sternal abnormalities seen on the bone scan were pathological fractures. The patient underwent a biopsy of this area on October 18. She has been taking Eliquis for DVT and pulmonary emboli. Her last dose was on Wednesday, the and she resumed it on Wednesday, the . On Wednesday, she began to have increasing shortness of breath and was brought by EMS to the emergency room. She underwent a CT angio of the chest, which showed multifocal bilateral acute pulmonary embolism. She had an enlarged subcarinal lymph node. She had a known left hilar, suprahilar mass. There were small bilateral pulmonary nodules, possibly metastatic in nature. Her pathology on her right hip returned today adenocarcinoma consistent with lung primary. The patient was seen at bedside. She has no complaints at this time. Denies any shortness of breath. She is on home O2 for COPD. History was obtained from the patient and her daughter. PAST MEDICAL HISTORY: 1. Clinical stage IA3 lung cancer, status post radiation. 2. COPD. 3. Hypertension. 4. DVT, pulmonary emboli in 2017. 5. Hysterectomy and bilateral oophorectomy. ALLERGIES: PENICILLIN. HOME MEDICATIONS: 1. Eliquis. 2. Bystolic. 3. Citalopram. 4. Ellipta. FAMILY HISTORY: Mother in her 90s from colon cancer. She had a sister with lymphoma. SOCIAL HISTORY: , has one daughter, [id number] history of smoking, stopped in early 2019. REVIEW OF SYSTEMS: A 10-point review of systems is negative except for noted in HPI. PHYSICAL EXAMINATION: VITAL SIGNS: Temperature is 97.5, pulse is 92, respiratory rate 15, BP is 122/69. She is 91% on 2 L. GENERAL: A well-developed, well-nourished female, in no acute distress. HEENT: Normocephalic, atraumatic. Pupils are equal and reactive to light. NECK: Supple. CV: Regular rate and rhythm. LUNGS: Diminished throughout. ABDOMEN: Soft, nontender. Bowel sounds are positive. EXTREMITIES: There is no clubbing or cyanosis. SKIN: No rash. HEMATOLOGICAL: No petechiae or purpura. NEUROLOGICAL: Nonfocal. PERTINENT LABORATORIES AND X-RAY: WBCs are 9.4, hemoglobin 13.4, hematocrit 39.3, platelet count 182,000. She has 72% neutrophils, 15% lymphocytes, PT is 13.5, INR is 1, PTT is 25.5. Sodium 136, potassium 4.4, chloride 102, CO2 is 22, BUN is 22, creatinine 0.7, calcium 8.9, bilirubin 0.4, AST is 18, ALT is 10, alkaline phosphatase is 79, serum total protein is 6.1, albumin 3.7, globulin 2.4. Her BNP is 2709. COVID PCR negative. Radiology per HPI. ASSESSMENT: 1. New bilateral pulmonary artery embolism. 2. Metastatic lung cancer. DISCUSSION: The patient has new findings of metastatic disease at her hip and possible progression in her lung. She needs an outpatient PET scan to further stage. She also needs a brain MRI to complete staging, this will be ordered. She does have a history of claustrophobia. We will order Ativan to be given prior to the MRI. I have asked for the immunohistochemical stains on the tissue from her hip to include PDL1. I have discussed the case with Dr. Alvarado and Dr. Banuelos. Dr. Banuelos plans to offer radiation to the right hip for pain control. I did discuss with the patient's daughter that she is likely to need systemic therapy. She will follow up in the outpatient setting once her PET has been completed. Thank you for the consult. Job ID: [id number]
--- NOTE | 2020-10-23 00:09 | CON ---
DATE OF CONSULTATION: 10/22/2020 REASON FOR CONSULTATION: Ms. Burgess is a 70-year-old female, who has now been diagnosed with biopsy proven metastasis from her previous lung cancer. I was asked to see her for consideration of radiation therapy. HISTORY OF PRESENT ILLNESS: Ms. Burgess is well known to me. She was diagnosed early last year with a clinical stage IA3, [id number] lung carcinoma of the left upper lobe. This was a clinical diagnosis only because tissue could not be obtained because of her severe COPD. Bronchoscopy was performed, but biopsy was negative, nevertheless the lesion was new clinically by CT scan and was PET scan positive. She was treated with radiation therapy to 70 Gy in 23 fractions, which was completed on 01/12/2020. She did well until approximately 3 months ago when she developed some right hip pain. She also had a CT scan that suggested some slight enlargement of the lymph nodes in her mediastinum. X-ray was negative on her right hip and the decision was made to follow her with a repeat CT scan of the chest in 3 months. However, her hip pain persisted. CT scan of the chest suggested the adenopathy to be slightly larger and to have a more necrotic appearance in the mediastinum, which was concerning for disease recurrence. Because she was still having persistent hip pain, this was worked up with a bone scan and then a CT scan of the pelvis. The bone scan showed an abnormality in the right pelvis that was uncertain whether that was from trauma or metastasis. CT scan of the pelvis confirmed that the abnormality in the medial aspect of the right iliac body was a mass, which was concerning for metastasis. Last Wednesday, she underwent biopsy of the mass. This required her to be off Eliquis. Biopsy returned today as adenocarcinoma and it was felt this was metastasis from her lung cancer. Yesterday, however, she resumed her Eliquis but began having more problems with breathing. She was brought to the emergency room where a CT angiogram confirmed pulmonary emboli. There was also a new right middle lobe infiltrate concerning for pneumonia. She was admitted to the hospital and anticoagulation was instituted/resumed and her pneumonia was treated with antibiotics. Today, her breathing is much improved. She has no headaches or nausea or vomiting. She continues to have pain in the right lower back, which radiates down her right leg. This is her only area of pain. She voices no other complaints. PAST MEDICAL HISTORY: 1. Lung cancer as mentioned above. 2. Oxygen dependent COPD. 3. Hypertension. 4. DVT with pulmonary embolism in 2017. 5. Status post hysterectomy and bilateral oophorectomy. MEDICATIONS: 1. DuoNeb nebulizers. 2. Xanax. 3. Ceftriaxone. 4. Celexa 5. Vibramycin. 6. Lovenox. 7. Pepcid. 8. Union p.r.n. 9. Robitussin DM. 10. Zofran p.r.n. ALLERGIES: PENICILLIN, WHICH CAUSES ITCHING. SOCIAL HISTORY: She smokes 1-1/2-pack of cigarettes per week and did so for at least 40 years. She stopped smoking about 1 year ago. She has no alcohol use. She lives with her here in town and is retired. FAMILY HISTORY: Her mother at age 90 from colon cancer. Her father at age 54 from an aneurysm. Her paternal grandfather possibly had cancer, the type of which is unknown to her. She had a sister with lymphoma. There is no other family history of malignancy. REVIEW OF SYSTEMS: A 12-system review of systems was performed with the patient by me and is otherwise negative. PHYSICAL EXAMINATION: VITAL SIGNS: Height 5 feet 4 inches, weight 133 pounds. Blood pressure is 143/72, pulse is 80, respirations are 18, temperature is 97.6, O2 saturation is 88% on 2 L O2. GENERAL: She is alert and oriented and in no apparent distress. Karnofsky performance status is 60%. EYES: Pupils are equal, round, and reactive to light. Extraocular movements are intact. ENT: Oral cavity and oropharynx are normal without lesion or erythema. Palate elevates symmetrically. NECK: Supple without cervical or supraclavicular adenopathy. No thyromegaly. Larynx midline. LUNGS: Breathing nonlabored. Breath sounds distant. Otherwise, clear to auscultation and percussion. CARDIOVASCULAR: Heart, regular rate and rhythm without murmur. No lower extremity edema. BACK: No tenderness on fist percussion of her spine. ABDOMEN: Soft, nontender, nondistended without mass or hepatosplenomegaly. Liver percusses to normal size. LABORATORY DATA: Biopsy from the right iliac bone returned the diagnosis of adenocarcinoma. CBC revealed a white blood cell count of 9400 with a hemoglobin of 13.4, hematocrit of 39.3, and platelet count of 182,000. Chemistry group showed fairly normal electrolytes. Her BNP was elevated at 2709. RADIOLOGY: Recent bone scan and CT scan of the pelvis as well as CT angiogram and MRI of the brain were all personally reviewed. Bone scan showed abnormality in the right medial iliac bone of unknown significance. There were also several other abnormalities that were felt most likely to be from trauma. CT of the pelvis showed a mass in the right iliac bone. CT angiogram shows what appears to be scarring in the left upper lobe from her previous radiation. She has some adenopathy in the mediastinum that is unchanged. MRI of the brain was felt to be negative for metastasis. There was a small area that was felt to be vascular in nature that needed to be watched with an MRI in 3 months. ASSESSMENT: Ms. Burgess is a 70-year-old female, who has now biopsy-proven bone metastasis from her adenocarcinoma of the lung. She also has pulmonary embolus and what appears to be a right middle lobe pneumonia. PLAN: Her pulmonary embolus will be treated with anticoagulation and her right middle lobe pneumonia with antibiotics per the hospitalist staff. I had previously talked to her that if her biopsy confirmed metastatic adenocarcinoma in the bone that we could treat her with a course of palliative radiation therapy to improve her pain. Radiation has about an 80% chance of improving her pain. The logistics of radiation as well as the benefits of risks of treatment were again discussed with her. The simulation and daily treatment procedure were discussed. Side effects would include, but not be limited to skin reaction, fatigue, lower blood counts, nausea, vomiting, diarrhea, and small risk of damage to her intestines or other structures which receive radiation therapy. Time was taken to answer all of her questions regarding radiation therapy. She is tentatively agreeable to proceed with radiation. We will make plans to proceed with radiation once she is stable from a pulmonary standpoint and is discharged home. I agree with Medical Oncology that she should have a PET scan as an outpatient to complete her staging. She will also see Medical Oncology to determine whether systemic therapy is warranted after she completes her palliative radiation therapy. Thank you for this interesting consultation. Job ID: [id number] MARCIE
[2020-10-23 05:43] LABS: #Eosinphils 0.3 thou/uL (0.0-0.7); Anion Gap 13 mmol/L (10-20); BUN (Urea Nitrogen) 16 mg/dL (9.8-20.1); Calc. Creatinine Clearance 72 mL/min (70-130); Calcium 8.2 mg/dL (7.8-10.44); Carbon Dioxide 25 mmol/L (23-31); Chloride 103 mmol/L (98-107); Glucose 94 mg/dL (83-110); Hemoglobin 12.2 g/dL (12.0-16.0); Magnesium 1.8 mg/dL (1.6-2.6); RBC Distribution Width 12.8 % (11.5-14.5); Sodium 137 mmol/L (136-145)
[2020-10-23 06:45] LABS: #Monocytes 0.9 thou/uL (0.11-0.59); #Neutrophils 4.1 thou/uL (1.40-6.50); %Basophils 0.6 % (0.0-1.0); %Eosinophils 3.7 % (0.0-10.0); %Lymphocytes 27.8 % (21.0-51.0); %Monocytes 12.6 % (0.0-10.0); %Neutrophils 55.4 % (42.0-75.0); Mean Corpuscular HGB CONC 32.8 g/dL (32.0-36.0); Mean Corpuscular Hemoglobin 30.5 pg (27.0-31.0); Mean Corpuscular Volume 93.2 fL (78.0-98.0); Platelet Count 191 thou/uL (130-400); Red Blood Cell (RBC) Count 3.99 mill/uL (4.20-5.40); White Blood Cell (WBC) Count 7.4 thou/uL (4.8-10.8)
[2020-10-23] MEDS ORDERED: Magnesium 2 GM/50 ML 2 GM in Premix Bag 1 BAG IVPB SCH (08:30)
[2020-10-23] MEDS: Polyethylene Glycol 3350 17 GM Packet PO SCH (09:09)
[2020-10-23] MEDS: Citalopram 10 MG TAB PO SCH (09:09)
[2020-10-23] MEDS: Doxycycline 100 MG CAP PO SCH ×2 (09:09→20:29)
[2020-10-23] MEDS: Famotidine 20 MG TAB PO SCH ×2 (09:10→20:29)
[2020-10-23] MEDS: HYDROcodone/Acetaminophen 5/325 mg Tablet PO PRN (09:10)
[2020-10-23] MEDS: Nebivolol HCl 5 MG TAB PO SCH (09:10)
[2020-10-23] MEDS: Enoxaparin Sodium 60 MG/0.6 ML SYRINGE SC SCH ×2 (09:11→20:28)
--- NOTE | 2020-10-23 14:50 | PDOC.MOPN ---
Interval History: SOB with exertion. Continued hip pain - Vital Signs Vital Signs: Vital Signs (12 hours) Temp Pulse Resp BP Pulse Ox 10/23/20 11:55 98.7 F 84 17 113/69 90 L 10/23/20 08:15 84 18 96 10/23/20 08:12 98.3 F 82 16 137/85 90 L Weight Weight 133 lb 6.4 oz - Physical Exam General: Alert, Oriented x3, No acute distress HEENT: Atraumatic Lungs: Other Cardiovascular: Regular rate Abdomen: Normal bowel sounds Neurological: Normal speech Psych/Mental Status: Mental status NL - Labs Result Diagrams: 10/23/20 04:20 10/23/20 04:20 Lab results: Laboratory Results - last 24 hr 10/23/20 04:20: WBC 7.4, RBC 3.99 L, Hgb 12.2, Hct 37.2, MCV 93.2, MCH 30.5, MCHC 32.8, RDW 12.8, Plt Count 191, MPV 8.0, Neutrophils % 55.4, Lymphocytes % 27.8, Monocytes % 12.6 H, Eosinophils % 3.7, Basophils % 0.6, Neutrophils # 4.1, Lymphocytes # 2.0, Monocytes # 0.9 H, Eosinophils # 0.3, Basophils # 0.0 10/23/20 04:20: Sodium 137, Potassium 4.0, Chloride 103, Carbon Dioxide 25, Anion Gap 13, BUN 16, Creatinine 0.68, Estimated GFR (MDRD) 85, Glucose 94, Calcium 8.2, Magnesium 1.8 Status: lab reviewed by me A/P - Problem (1) Lung cancer Current Visit: Yes Code(s): C34.90 - MALIGNANT NEOPLASM OF UNSP PART OF UNSP BRONCHUS OR LUNG Status: Acute (2) Pneumonia Current Visit: Yes Code(s): J18.9 - PNEUMONIA, UNSPECIFIED ORGANISM Status: Acute (3) Pulmonary embolism Current Visit: Yes Code(s): I26.99 - OTHER PULMONARY EMBOLISM WITHOUT ACUTE COR PULMONALE Status: Acute - Plan Plan: Patient will start XRT for pain control Plan outpatient pet scan follow-up in our clinic to discuss systemic treatment PDL-1 pending.
[2020-10-23] MEDS: Lorazepam 1 MG TAB PO PRN (20:28)
[2020-10-23] MEDS: cefTRIAXone\\ROCEPHIN 1 GM in Sodium Chloride 0.9% 100 ML IVPB SCH (20:28)
--- NOTE | 2020-10-23 21:48 | PDOC.HOSPP ---
- Subjective Encounter Date: 10/23/20 Encounter Time: 13:30 Subjective: Patient seen and examined for pulmonary embolism. Shortness of breath on [id number] exertion. Denies any chest pain or palpitations - Objective Vital Signs & Weight: Vital Signs (12 hours) Temp Pulse Resp BP Pulse Ox 10/23/20 19:59 97.4 F L 85 20 130/67 93 L 10/23/20 19:29 96 10/23/20 19:28 96 10/23/20 15:55 98.6 F 73 17 134/73 93 L 10/23/20 11:55 98.7 F 84 17 113/69 90 L Weight Weight 133 lb 6.4 oz I&O: 10/22/20 10/23/20 10/24/20 06:59 06:59 06:59 Intake Total 480 780 750 Output Total 450 600 450 Balance 30 180 300 Result Diagrams: 10/24/20 04:13 10/24/20 04:13 Additional Labs: Abnormal Lab Results - Last 48 hrs 10/23/20 04:20: RBC 3.99 L, Monocytes % 12.6 H, Monocytes # 0.9 H Radiology Reviewed by me: Yes (CT angiogram of the chestpulmonary embolism) EKG Reviewed by me: Yes (Sinus rhythm on telemetry) Hospitalist ROS - Review of Systems Cardiovascular: denies: chest pain, palpitations, orthopnea, paroxysmal noc. dyspnea, edema, light headedness, other Gastrointestinal: denies: nausea, vomiting, abdominal pain, diarrhea, constipation, melena, hematochezia, other - Medication Medications: Active Medications Generic Name Dose Route Start Last Admin Trade Name Freq PRN Reason Stop Dose Admin Hydrocodone Bitart/Acetaminophen 1 tab 10/21/20 22:09 10/23/20 09:10 Hydrocodone/Acetaminophen 5/325 Mg Tablet PO 1 tab Q4H PRN Administration Moderate Pain (4-6) Albuterol/Ipratropium 3 ml 10/22/20 01:00 10/23/20 19:28 Ipratropium/Albuterol Sulfate 3 Ml Neb NEB 3 ml [id number] QUINN Administration Citalopram Hydrobromide 10 mg 10/22/20 09:00 10/23/20 09:09 Citalopram 10 Mg Tab PO 10 mg DAILY QUINN Administration Doxycycline Hyclate 100 mg 10/22/20 21:00 10/23/20 20:29 Doxycycline 100 Mg Cap PO 100 mg BID QUINN Administration Enoxaparin Sodium 60 mg 10/22/20 09:00 10/23/20 20:28 Enoxaparin Sodium 60 Mg/0.6 Ml Syringe SC 60 mg 0900,2100 QUINN Administration Famotidine 20 mg 10/22/20 09:00 10/23/20 20:29 Famotidine 20 Mg Tab PO 20 mg BID QUINN Administration Ceftriaxone Sodium 1 gm/ 100 mls @ 200 mls/hr 10/22/20 21:00 10/23/20 20:28 Sodium Chloride IVPB 100 mls HS QUINN Administration Lorazepam 1 mg 10/22/20 14:26 10/23/20 20:28 Lorazepam 1 Mg Tab PO 1 mg Q4H PRN Administration Anxiety/Agitation Nebivolol 5 mg 10/22/20 09:00 10/23/20 09:10 Nebivolol Hcl 5 Mg Tab PO 5 mg DAILY QUINN Administration Polyethylene Glycol 17 gm 10/22/20 09:00 10/23/20 09:09 Polyethylene Glycol 3350 17 Gm Packet PO 17 gm DAILY QUINN Administration - Exam General Appearance: awake alert Neck: supple, no JVD Heart: RRR, no gallops Respiratory: no wheezes, no rales, rhonchi Gastrointestinal: non-tender, non-distended, normal bowel sounds Extremities: no cyanosis, no clubbing Musculoskeletal: generalized weakness Psychiatric: A&O x 3 Hosp A/P - Plan DVT proph w/lovenox, DVT proph w/SCDs Patient is a 70-year-old female with lung cancer and pulmonary embolism on Eliquis presented to the hospital with shortness of breath. Please note that she has stopped Eliquis for 5 days for bone marrow biopsy. Her work-up in the emergency room was consistent with multifocal bilateral pulmonary embolism with possible right middle lobe infectious pneumonitis versus infarction. She was started on Lovenox 1 mg/kg. Echocardiogram showed ejection fraction 55 to 60% with severely enlarged right ventricle cavity with markedly enlarged right atrium size and severe tricuspid regurgitation. She was also evaluated by oncology and radiation oncology service for evaluation for radiation therapy for bone mets. Impression: Acute on chronic hypoxic respiratory failure due to PE/pneumonia Bilateral pulmonary embolism Right middle lobe pneumonia suspected gram-negative organism History of lung cancer with bone metastasis COPD on home oxygen history of DVT Hypertension Hypomagnesemia CKD stage II Former smoker Plan: Continue Lovenox 1 mg/kg twice daily for pulmonary embolism pulmonary embolism.. Continue ceftriaxone with doxycycline for pneumonia. PET scan as outpatient. Continue other medications as above
[2020-10-24 05:25] LABS: #Eosinphils 0.2 thou/uL (0.0-0.7); #Monocytes 0.8 thou/uL (0.11-0.59); #Neutrophils 3.7 thou/uL (1.40-6.50); %Basophils 0.3 % (0.0-1.0); %Lymphocytes 29.9 % (21.0-51.0); %Monocytes 12.1 % (0.0-10.0); %Neutrophils 54.6 % (42.0-75.0); Hemoglobin 11.7 g/dL (12.0-16.0); Mean Corpuscular HGB CONC 32.5 g/dL (32.0-36.0); Mean Corpuscular Hemoglobin 30.4 pg (27.0-31.0); Mean Corpuscular Volume 93.4 fL (78.0-98.0); Mean Platelet Volume 7.7 fL (7.4-10.4); Platelet Count 199 thou/uL (130-400); Red Blood Cell (RBC) Count 3.84 mill/uL (4.20-5.40); White Blood Cell (WBC) Count 6.8 thou/uL (4.8-10.8)
[2020-10-24 05:33] LABS: Anion Gap 13 mmol/L (10-20); BUN (Urea Nitrogen) 18 mg/dL (9.8-20.1); Calc. Creatinine Clearance 71 mL/min (70-130); Calcium 8.2 mg/dL (7.8-10.44); Carbon Dioxide 25 mmol/L (23-31); Chloride 102 mmol/L (98-107); Glucose 91 mg/dL (83-110); Magnesium 1.9 mg/dL (1.6-2.6); Potassium 3.9 mmol/L (3.5-5.1); Sodium 136 mmol/L (136-145)
[2020-10-24] MEDS ORDERED: Magnesium 2 GM/50 ML 2 GM in Premix Bag 1 BAG IVPB SCH (06:45)
[2020-10-24] MEDS: Polyethylene Glycol 3350 17 GM Packet PO SCH (07:50)
[2020-10-24] MEDS: Doxycycline 100 MG CAP PO SCH ×2 (07:50→20:30)
[2020-10-24] MEDS: Enoxaparin Sodium 60 MG/0.6 ML SYRINGE SC SCH ×2 (07:50→20:30)
[2020-10-24] MEDS: Famotidine 20 MG TAB PO SCH ×2 (07:51→20:30)
[2020-10-24] MEDS: Citalopram 10 MG TAB PO SCH (07:51)
[2020-10-24] MEDS: Nebivolol HCl 5 MG TAB PO SCH (07:51)
--- NOTE | 2020-10-24 14:30 | PRG ---
DATE OF SERVICE: 10/24/2020 SUBJECTIVE: Ms. Burgess is slowly improving in her breathing. She still has dyspnea on exertion. She gets fairly breathless just transferring to the bedside commode. Her pain in her lower back and right hip has improved. OBJECTIVE: VITAL SIGNS: Height 5 feet 4 inches, weight 133 pounds. Her blood pressure is 144/67, pulse is 74, respirations are 20, temperature 97.8, O2 saturation is 92% on 2 L O2. GENERAL: She is alert and oriented and in no apparent distress. LUNGS: Her breathing is nonlabored. Remainder of physical exam was not performed. ASSESSMENT: Ms. Burgess is a 70-year-old female with bone metastasis from adenocarcinoma of the lung. She also was recently found to have pulmonary embolism and right middle lobe pneumonia. PLAN: I have offered her a course of palliative radiation therapy to the right hip region for her bone pain from her metastatic disease. The logistics, benefits, and risks of radiation have been discussed with her and she is agreeable to proceed with that. I offered to even perform a simulation while she was here in the hospital. She does not feel quite up to this today. We have been monitoring her breathing to hope that it stabilizes improved from treatment of her pulmonary embolism and pneumonia before we proceed with radiation. We will check again tomorrow to see if she is able to do a simulation. Treatment will likely be given as an outpatient. From my perspective, when she is stable from a pulmonary standpoint to be discharged home, she can be discharged. Job ID: [id number]
--- NOTE | 2020-10-24 17:08 | PDOC.HOSPP ---
- Subjective Encounter Date: 10/24/20 Encounter Time: 11:00 Subjective: Patient seen and examined for pulmonary embolism/respiratory failure. Feels generally weak and fatigue. Denies any fever or chills. Short of breath on [id number] exertion. - Objective Vital Signs & Weight: Vital Signs (12 hours) Temp Pulse Resp BP Pulse Ox 10/24/20 16:22 98.5 F 71 16 120/72 94 L 10/24/20 12:27 82 18 10/24/20 11:32 97.8 F 74 20 146/67 H 10/24/20 07:05 98.4 F 76 18 142/84 H 92 L Weight Weight 133 lb 6.4 oz I&O: 10/23/20 10/24/20 10/25/20 06:59 06:59 06:59 Intake Total 780 750 Output Total 600 450 Balance 180 300 Result Diagrams: 10/24/20 04:13 10/24/20 04:13 Additional Labs: Abnormal Lab Results - Last 48 hrs 10/23/20 04:20: RBC 3.99 L, Monocytes % 12.6 H, Monocytes # 0.9 H 10/24/20 04:13: RBC 3.84 L, Hgb 11.7 L, Hct 35.9 L, Monocytes % 12.1 H, Monocytes # 0.8 H EKG Reviewed by me: Yes (Sinus rhythm on telemetry) Hospitalist ROS - Review of Systems Cardiovascular: denies: chest pain, palpitations, orthopnea, paroxysmal noc. dyspnea, edema, light headedness, other Gastrointestinal: denies: nausea, vomiting, abdominal pain, diarrhea, constipation, melena, hematochezia, other - Medication Medications: Active Medications Generic Name Dose Route Start Last Admin Trade Name Freq PRN Reason Stop Dose Admin Hydrocodone Bitart/Acetaminophen 1 tab 10/21/20 22:09 10/23/20 09:10 Hydrocodone/Acetaminophen 5/325 Mg Tablet PO 1 tab Q4H PRN Administration Moderate Pain (4-6) Albuterol/Ipratropium 3 ml 10/22/20 01:00 10/24/20 13:38 Ipratropium/Albuterol Sulfate 3 Ml Neb NEB Not Given [id number] Citalopram Hydrobromide 10 mg 10/22/20 09:00 10/24/20 07:51 Citalopram 10 Mg Tab PO 10 mg DAILY QUINN Administration Doxycycline Hyclate 100 mg 10/22/20 21:00 10/24/20 07:50 Doxycycline 100 Mg Cap PO 100 mg BID QUINN Administration Enoxaparin Sodium 60 mg 10/22/20 09:00 10/24/20 07:50 Enoxaparin Sodium 60 Mg/0.6 Ml Syringe SC 60 mg 0900,2100 QUINN Administration Famotidine 20 mg 10/22/20 09:00 10/24/20 07:51 Famotidine 20 Mg Tab PO 20 mg BID QUINN Administration Ceftriaxone Sodium 1 gm/ 100 mls @ 200 mls/hr 10/22/20 21:00 10/23/20 20:28 Sodium Chloride IVPB 10/24/20 23:59 100 mls HS QUINN Administration Lorazepam 1 mg 10/22/20 14:26 10/23/20 20:28 Lorazepam 1 Mg Tab PO 1 mg Q4H PRN Administration Anxiety/Agitation Nebivolol 5 mg 10/22/20 09:00 10/24/20 07:51 Nebivolol Hcl 5 Mg Tab PO 5 mg DAILY QUINN Administration Polyethylene Glycol 17 gm 10/22/20 09:00 10/24/20 07:50 Polyethylene Glycol 3350 17 Gm Packet PO 17 gm DAILY QUINN Administration Sodium Chloride 10 ml 10/24/20 09:00 10/24/20 07:51 Flush - Normal Saline 10 Ml Syringe IVF 10 ml Q12HR QUINN Administration - Exam General Appearance: awake alert Neck: supple, no JVD Heart: RRR, no gallops Respiratory: no wheezes, no ronchi, rales Gastrointestinal: soft, non-tender, no guarding, no rigidity Extremities: no cyanosis Hosp A/P - Plan DVT proph w/SCDs Patient is a 70-year-old female with lung cancer and pulmonary embolism on Eliquis presented to the hospital with shortness of breath. Please note that she has stopped Eliquis for 5 days for bone marrow biopsy. Her work-up in the emergency room was consistent with multifocal bilateral pulmonary embolism with possible right middle lobe infectious pneumonitis versus infarction. She was started on Lovenox 1 mg/kg. Echocardiogram showed ejection fraction 55 to 60% with severely enlarged right ventricle cavity with markedly enlarged right atrium size and severe tricuspid regurgitation. She was also evaluated by oncology and radiation oncology service for evaluation for radiation therapy for bone mets. Impression: Acute on chronic hypoxic respiratory failure due to PE/pneumonia Bilateral pulmonary embolism Right middle lobe pneumonia suspected gram-negative organism History of lung cancer with bone metastasis COPD on home oxygen history of DVT Hypertension Hypomagnesemia CKD stage II Former smoker Plan: Continue Lovenox 60 mg twice daily. Home oxygen evaluation. Patient has oxygen at home which she had purchased in the past. Will consult case management to assist with home O2 set up. Change ceftriaxone to Omnicef in a.m. Replace magnesium. Continue Celexa, Bystolic and other medications as above
[2020-10-24] MEDS: cefTRIAXone\\ROCEPHIN 1 GM in Sodium Chloride 0.9% 100 ML IVPB SCH (20:30)
[2020-10-24] MEDS: Lorazepam 1 MG TAB PO PRN (23:43)
[2020-10-25] MEDS: Nebivolol HCl 5 MG TAB PO SCH (08:50)
[2020-10-25] MEDS: Cefdinir 300 MG CAP PO SCH ×2 (08:50→20:33)
[2020-10-25] MEDS: Citalopram 10 MG TAB PO SCH (08:50)
[2020-10-25] MEDS: Doxycycline 100 MG CAP PO SCH ×2 (08:50→20:34)
[2020-10-25] MEDS: Famotidine 20 MG TAB PO SCH ×2 (08:50→20:34)
[2020-10-25] MEDS: Enoxaparin Sodium 60 MG/0.6 ML SYRINGE SC SCH ×2 (08:51→20:34)
[2020-10-25] MEDS: Polyethylene Glycol 3350 17 GM Packet PO SCH (08:51)
[2020-10-25] MEDS ORDERED: Sodium Chloride 0.65% Nasal 44 ML BOT EA NARE PRN (09:11)
[2020-10-25] MEDS: Lorazepam 1 MG TAB PO PRN (09:48)
[2020-10-25] MEDS: Fluticasone Propionate Nasal Spray 16 gm Bottle NASAL SCH (11:55)
--- NOTE | 2020-10-25 13:31 | PDOC.HOSPP ---
- Subjective Encounter Date: 10/25/20 Encounter Time: 10:30 Subjective: Patient seen and examined for respiratory failure due to pulmonary embolism. Short of breath on minimal exertion. Mild cough which is essentially nonproductive. Feels generally weak and fatigue. - Objective Vital Signs & Weight: Vital Signs (12 hours) Temp Pulse Resp BP BP Pulse Ox 10/25/20 12:00 98.7 F 82 20 122/75 90 L 10/25/20 08:00 98.1 F 78 20 145/76 H 90 L 10/25/20 06:15 80 12 10/25/20 04:00 98.1 F 74 18 123/74 94 L Weight Weight 133 lb 6.4 oz I&O: 10/24/20 10/25/20 10/26/20 06:59 06:59 06:59 Intake Total 750 550 350 Output Total 450 Balance 300 550 350 Result Diagrams: 10/24/20 04:13 10/24/20 04:13 Additional Labs: Abnormal Lab Results - Last 48 hrs 10/24/20 04:13: RBC 3.84 L, Hgb 11.7 L, Hct 35.9 L, Monocytes % 12.1 H, Monocyt es # 0.8 H Hospitalist ROS - Review of Systems Cardiovascular: denies: chest pain, palpitations, orthopnea, paroxysmal noc. dyspnea, edema, light headedness, other Gastrointestinal: denies: nausea, vomiting, abdominal pain, diarrhea, constipation, melena, hematochezia, other - Medication Medications: Active Medications Generic Name Dose Route Start Last Admin Trade Name Freq PRN Reason Stop Dose Admin Hydrocodone Bitart/Acetaminophen 1 tab 10/21/20 22:09 10/23/20 09:10 Hydrocodone/Acetaminophen 5/325 Mg Tablet PO 1 tab Q4H PRN Administration Moderate Pain (4-6) Albuterol/Ipratropium 3 ml 10/22/20 01:00 10/25/20 06:15 Ipratropium/Albuterol Sulfate 3 Ml Neb NEB 3 ml [id number] QUINN Administration Cefdinir 300 mg 10/25/20 09:00 10/25/20 08:50 Cefdinir 300 Mg Cap PO 300 mg BID QUINN Administration Citalopram Hydrobromide 10 mg 10/22/20 09:00 10/25/20 08:50 Citalopram 10 Mg Tab PO 10 mg DAILY QUINN Administration Doxycycline Hyclate 100 mg 10/22/20 21:00 10/25/20 08:50 Doxycycline 100 Mg Cap PO 100 mg BID QUINN Administration Enoxaparin Sodium 60 mg 10/22/20 09:00 10/25/20 08:51 Enoxaparin Sodium 60 Mg/0.6 Ml Syringe SC 60 mg 0900,2100 QUINN Administration Famotidine 20 mg 10/22/20 09:00 10/25/20 08:50 Famotidine 20 Mg Tab PO 20 mg BID QUINN Administration Fluticasone Propionate 0 gm 10/25/20 09:15 10/25/20 11:55 Fluticasone Propionate Nasal [place] 16 Gm Bottle NASAL 2 spr Q24H QUINN Administration Lorazepam 1 mg 10/22/20 14:26 10/25/20 09:48 Lorazepam 1 Mg Tab PO 0.5 mg Q4H PRN Administration Anxiety/Agitation Nebivolol 5 mg 10/22/20 09:00 10/25/20 08:50 Nebivolol Hcl 5 Mg Tab PO 5 mg DAILY QUINN Administration Polyethylene Glycol 17 gm 10/22/20 09:00 10/25/20 08:51 Polyethylene Glycol 3350 17 Gm Packet PO 17 gm DAILY QUINN Administration Sodium Chloride 10 ml 10/24/20 09:00 10/25/20 08:51 Flush - Normal Saline 10 Ml Syringe IVF 10 ml Q12HR QUINN Administration - Exam General Appearance: NAD Neck: supple, no JVD Heart: RRR, no gallops Respiratory: no wheezes, no rales Gastrointestinal: soft, non-tender, normal bowel sounds Extremities: no cyanosis, no clubbing Neurological: no new deficit Hosp A/P - Plan DVT proph w/lovenox Patient is a 70-year-old female with lung cancer and pulmonary embolism on [place] iquis presented to the hospital with shortness of breath. Please note that she has stopped Eliquis for 5 days for bone marrow biopsy. Her work-up in the emergency room was consistent with multifocal bilateral pulmonary embolism with possible right middle lobe infectious pneumonitis versus infarction. She was started on Lovenox 1 mg/kg. Echocardiogram showed ejection fraction 55 to 60% with severely enlarged right ventricle cavity with markedly enlarged right atrium size and severe tricuspid regurgitation. She was also evaluated by oncology and radiation oncology service for evaluation for radiation therapy for bone mets. Impression: Acute on chronic hypoxic respiratory failure due to PE/pneumonia Bilateral pulmonary embolism with right ventricular strain Right middle lobe pneumonia suspected gram-negative organism History of lung cancer with bone metastasis COPD on home oxygen history of DVT Hypertension Hypomagnesemia CKD stage II Former smoker Plan: Patient is currently saturating 90% on 3 L nasal cannula. Will continue Lovenox 1 mg/kg. We will continue Omnicef and doxycycline for pneumonia. Add Flonase. Continue Bystolic and other medications as above. Recheck labs in a.m. add albuterol inhaler. Patient is not stable for discharge.
[2020-10-25] MEDS ORDERED: Albuterol Sulfate 2.5 mg/3 ml Neb NEB PRN (13:58)
[2020-10-25] MEDS ORDERED: Albuterol Sulfate 2.5 mg/3 ml Neb NEB SCH (17:00)
[2020-10-26] MEDS: HYDROcodone/Acetaminophen 5/325 mg Tablet PO PRN ×2 (04:29→20:22)
[2020-10-26 05:40] LABS: Anion Gap 13 mmol/L (10-20); BUN (Urea Nitrogen) 14 mg/dL (9.8-20.1); Calc. Creatinine Clearance 65 mL/min (70-130); Calcium 8.5 mg/dL (7.8-10.44); Carbon Dioxide 25 mmol/L (23-31); Chloride 103 mmol/L (98-107); Glucose 87 mg/dL (83-110); Magnesium 1.6 mg/dL (1.6-2.6); Potassium 4.4 mmol/L (3.5-5.1); Sodium 137 mmol/L (136-145)
[2020-10-26 05:56] LABS: Hemoglobin 12.1 g/dL (12.0-16.0); Mean Corpuscular HGB CONC 33.3 g/dL (32.0-36.0); Mean Corpuscular Hemoglobin 30.8 pg (27.0-31.0); Mean Corpuscular Volume 92.5 fL (78.0-98.0); Mean Platelet Volume 7.6 fL (7.4-10.4); Platelet Count 222 thou/uL (130-400); RBC Distribution Width 13.4 % (11.5-14.5); Red Blood Cell (RBC) Count 3.94 mill/uL (4.20-5.40); White Blood Cell (WBC) Count 6.3 thou/uL (4.8-10.8)
[2020-10-26 06:23] LABS: #Basophils 0.1 thou/uL (0.0-0.2); #Eosinphils 0.2 thou/uL (0.0-0.7); #Lymphocytes 1.6 thou/uL (1.20-3.40); #Monocytes 0.7 thou/uL (0.11-0.59); #Neutrophils 3.8 thou/uL (1.40-6.50); %Basophils 1.2 % (0.0-1.0); %Eosinophils 2.9 % (0.0-10.0); %Lymphocytes 25.8 % (21.0-51.0); %Monocytes 10.3 % (0.0-10.0); %Neutrophils 59.8 % (42.0-75.0)
[2020-10-26] MEDS: Polyethylene Glycol 3350 17 GM Packet PO SCH ×2 (09:31→09:34)
[2020-10-26] MEDS: Cefdinir 300 MG CAP PO SCH ×2 (09:31→20:23)
[2020-10-26] MEDS: Enoxaparin Sodium 60 MG/0.6 ML SYRINGE SC SCH ×2 (09:31→20:22)
[2020-10-26] MEDS: Nebivolol HCl 5 MG TAB PO SCH (09:31)
[2020-10-26] MEDS: Famotidine 20 MG TAB PO SCH ×2 (09:31→20:23)
[2020-10-26] MEDS: Citalopram 10 MG TAB PO SCH (09:31)
[2020-10-26] MEDS: Fluticasone Propionate Nasal Spray 16 gm Bottle NASAL SCH (09:31)
[2020-10-26] MEDS: Doxycycline 100 MG CAP PO SCH ×2 (09:31→20:23)
--- NOTE | 2020-10-26 10:19 | EKG ---
Test Reason : Blood Pressure : / mmHG Vent. Rate : 093 BPM Atrial Rate : 093 BPM P-R Int : 176 ms QRS Dur : 092 ms QT Int : 340 ms P-R-T Axes : 063 122 035 degrees QTc Int : 422 ms Normal sinus rhythm Possible Left atrial enlargement Right axis deviation Incomplete right bundle branch block Right ventricular hypertrophy with repolarization abnormality Abnormal ECG Confirmed by MELIDA OCHOA ([id number]), school photograph editor ROSY ABRAMS ([id number]) on 10/26/2020 10:19:35 AM Referred By: Confirmed By:MELIDA Manjarrez
[2020-10-26] MEDS ORDERED: Magnesium Sulfate 4 GM in Sodium Chloride 0.9% 250 ML 250 ML IVPB SCH (10:30)
--- NOTE | 2020-10-26 16:47 | PDOC.HOSPP ---
- Subjective Encounter Date: 10/26/20 Encounter Time: 10:30 Subjective: Patient seen and examined for respiratory failure. Denies any new complaints. Still short of breath on minimal exertion. No fever or chills reported. - Objective Vital Signs & Weight: Vital Signs (12 hours) Temp Pulse Resp BP Pulse Ox 10/26/20 14:49 70 16 10/26/20 07:54 98.3 F 70 20 134/76 95 10/26/20 06:30 60 12 Weight Weight 133 lb 6.4 oz I&O: 10/25/20 10/26/20 10/27/20 06:59 06:59 06:59 Intake Total 550 1070 700 Balance 550 1070 700 Result Diagrams: 10/26/20 04:18 10/26/20 04:18 Hospitalist ROS - Review of Systems Cardiovascular: denies: chest pain, palpitations, orthopnea, paroxysmal noc. dyspnea, edema, light headedness, other Gastrointestinal: denies: nausea, vomiting, abdominal pain, diarrhea, constipation, melena, hematochezia, other - Medication Medications: Active Medications Generic Name Dose Route Start Last Admin Trade Name Freq PRN Reason Stop Dose Admin Hydrocodone Bitart/Acetaminophen 1 tab 10/21/20 22:09 10/26/20 04:29 Hydrocodone/Acetaminophen 5/325 Mg Tablet PO 1 tab Q4H PRN Administration Moderate Pain (4-6) Albuterol/Ipratropium 3 ml 10/25/20 19:00 10/26/20 14:49 Ipratropium/Albuterol Sulfate 3 Ml Neb NEB 3 ml [id number] QUINN Administration Cefdinir 300 mg 10/25/20 09:00 10/26/20 09:31 Cefdinir 300 Mg Cap PO 300 mg BID QUINN Administration Citalopram Hydrobromide 10 mg 10/22/20 09:00 10/26/20 09:31 Citalopram 10 Mg Tab PO 10 mg DAILY QUINN Administration Doxycycline Hyclate 100 mg 10/22/20 21:00 10/26/20 09:31 Doxycycline 100 Mg Cap PO 100 mg BID QUINN Administration Enoxaparin Sodium 60 mg 10/22/20 09:00 10/26/20 09:31 Enoxaparin Sodium 60 Mg/0.6 Ml Syringe SC 60 mg 0900,2100 QUINN Administration Famotidine 20 mg 10/22/20 09:00 10/26/20 09:31 Famotidine 20 Mg Tab PO 20 mg BID QUINN Administration Fluticasone Propionate 0 gm 10/25/20 09:15 10/26/20 09:31 Fluticasone Propionate Nasal [place] 16 Gm Bottle NASAL 1 spr Q24H QUINN Administration Nebivolol 5 mg 10/22/20 09:00 10/26/20 09:31 Nebivolol Hcl 5 Mg Tab PO 5 mg DAILY QUINN Administration Polyethylene Glycol 17 gm 10/22/20 09:00 10/26/20 09:34 Polyethylene Glycol 3350 17 Gm Packet PO Not Given DAILY QUINN Sodium Chloride 10 ml 10/24/20 09:00 10/26/20 09:32 Flush - Normal Saline 10 Ml Syringe IVF 10 ml Q12HR QUINN Administration - Exam General Appearance: awake alert General - other findings: Mild respiratory distress Neck: supple, no JVD Heart: RRR, no gallops Respiratory: no wheezes, no rales, rhonchi Gastrointestinal: soft, non-tender Extremities: no cyanosis Neurological: no new deficit Hosp A/P - Plan DVT proph w/SCDs Patient is a 70-year-old female with lung cancer, COPD and pulmonary embolism on Eliquis presented to the hospital with shortness of breath. Please note that she has stopped Eliquis for 5 days for bone marrow biopsy. Her work-up in the emergency room was consistent with multifocal bilateral pulmonary embolism with possible right middle lobe infectious pneumonitis versus infarction. She was started on Lovenox 1 mg/kg. Echocardiogram showed ejection fraction 55 to 60% with severely enlarged right ventricle cavity with markedly enlarged right atrium size and severe tricuspid regurgitation. She was also evaluated by oncology and radiation oncology service for evaluation for radiation therapy for bone mets. Impression: Acute on chronic hypoxic respiratory failure due to PE/pneumonia Bilateral pulmonary embolism with right ventricular strain Right middle lobe pneumonia suspected gram-negative organism History of lung cancer with bone metastasis COPD on home oxygen History of DVT Hypertension Hypomagnesemia CKD stage II Former smoker Plan: Case discussed with oncology and pulmonary. We will continue Lovenox. Continue oxygen. Patient is currently on 3 L nasal cannula. Routinely she is on 2 L at home. Possible DC in 24 to 48 hours if stable. Continue antibiotics. Continue other medications as above. Replace magnesium
[2020-10-27] MEDS: Doxycycline 100 MG CAP PO SCH ×2 (09:06→20:11)
[2020-10-27] MEDS: Saccharomyces boulardii 250 MG CAP PO SCH (09:06)
[2020-10-27] MEDS: Famotidine 20 MG TAB PO SCH ×2 (09:06→20:11)
[2020-10-27] MEDS: Fluticasone Propionate Nasal Spray 16 gm Bottle NASAL SCH (09:07)
[2020-10-27] MEDS: Nebivolol HCl 5 MG TAB PO SCH (09:07)
[2020-10-27] MEDS: Cefdinir 300 MG CAP PO SCH ×2 (09:07→20:11)
[2020-10-27] MEDS: Polyethylene Glycol 3350 17 GM Packet PO SCH (09:07)
[2020-10-27] MEDS: Citalopram 10 MG TAB PO SCH (09:07)
[2020-10-27] MEDS: Enoxaparin Sodium 60 MG/0.6 ML SYRINGE SC SCH ×2 (09:07→20:10)
[2020-10-27] MEDS: HYDROcodone/Acetaminophen 5/325 mg Tablet PO PRN ×2 (09:08→20:11)
--- NOTE | 2020-10-27 16:14 | PDOC.HOSPP ---
- Subjective Encounter Date: 10/27/20 Encounter Time: 14:00 Subjective: Patient seen and examined for respiratory failure. Short of breath on [id number] exertion. Symptomatically overall feeling much better. Denies any new complaints. - Objective Vital Signs & Weight: Vital Signs (12 hours) Temp Pulse Resp BP Pulse Ox 10/27/20 13:25 74 16 10/27/20 08:00 98.1 F 70 16 129/72 95 10/27/20 06:45 70 16 Weight Weight 133 lb 6.4 oz I&O: 10/26/20 10/27/20 10/28/20 06:59 06:59 06:59 Intake Total 1070 900 710 Balance 1070 900 710 Result Diagrams: 10/26/20 04:18 10/26/20 04:18 Hospitalist ROS - Review of Systems Cardiovascular: denies: chest pain, palpitations, orthopnea, paroxysmal noc. dyspnea, edema, light headedness, other Gastrointestinal: denies: nausea, vomiting, abdominal pain, diarrhea, constipation, melena, hematochezia, other - Medication Medications: Active Medications Generic Name Dose Route Start Last Admin Trade Name Freq PRN Reason Stop Dose Admin Hydrocodone Bitart/Acetaminophen 1 tab 10/21/20 22:09 10/27/20 09:08 Hydrocodone/Acetaminophen 5/325 Mg Tablet PO 1 tab Q4H PRN Administration Moderate Pain (4-6) Albuterol/Ipratropium 3 ml 10/25/20 19:00 10/27/20 13:25 Ipratropium/Albuterol Sulfate 3 Ml Neb NEB 3 ml [id number] QUINN Administration Cefdinir 300 mg 10/25/20 09:00 10/27/20 09:07 Cefdinir 300 Mg Cap PO 300 mg BID QUINN Administration Citalopram Hydrobromide 10 mg 10/22/20 09:00 10/27/20 09:07 Citalopram 10 Mg Tab PO 10 mg DAILY QUINN Administration Doxycycline Hyclate 100 mg 10/22/20 21:00 10/27/20 09:06 Doxycycline 100 Mg Cap PO 100 mg BID QUINN Administration Enoxaparin Sodium 60 mg 10/22/20 09:00 10/27/20 09:07 Enoxaparin Sodium 60 Mg/0.6 Ml Syringe SC 60 mg 09,2099 QUINN Administration Famotidine 20 mg 10/22/20 09:00 10/27/20 09:06 Famotidine 20 Mg Tab PO 20 mg BID QUINN Administration Fluticasone Propionate 0 gm 10/25/20 09:15 10/27/20 09:07 Fluticasone Propionate Nasal [place] 16 Gm Bottle NASAL 1 spr Q24H QUINN Administration Nebivolol 5 mg 10/22/20 09:00 10/27/20 09:07 Nebivolol Hcl 5 Mg Tab PO 5 mg DAILY QUINN Administration Polyethylene Glycol 17 gm 10/22/20 09:00 10/27/20 09:07 Polyethylene Glycol 3350 17 Gm Packet PO 17 gm DAILY QUINN Administration Saccharomyces Boulardii 250 mg 10/27/20 09:00 10/27/20 09:06 Saccharomyces Boulardii 250 Mg Cap PO 250 mg DAILY QUINN Administration Sodium Chloride 10 ml 10/24/20 09:00 10/27/20 09:08 Flush - Normal Saline 10 Ml Syringe IVF 10 ml Q12HR QUINN Administration - Exam General Appearance: awake alert Heart: RRR, no gallops Respiratory: no wheezes, rhonchi Gastrointestinal: soft, non-tender, normal bowel sounds Extremities: no cyanosis, no clubbing Neurological: no new deficit Hosp A/P - Plan DVT proph w/lovenox Patient is a 70-year-old female with lung cancer, COPD and pulmonary embolism on Eliquis presented to the hospital with shortness of breath. Please note that she has stopped Eliquis for 5 days for bone marrow biopsy. Her work-up in the emergency room was consistent with multifocal bilateral pulmonary embolism with possible right middle lobe infectious pneumonitis versus infarction. She was started on Lovenox 1 mg/kg. Echocardiogram showed ejection fraction 55 to 60% with severely enlarged right ventricle cavity with markedly enlarged right atrium size and severe tricuspid regurgitation. She was also evaluated by on cology and radiation oncology service for evaluation for radiation therapy for bone mets. Impression: Acute on chronic hypoxic respiratory failure due to PE/ pneumonia Bilateral pulmonary embolism with right ventricular strain Suspected Right middle lobe pneumonia suspected gram-negative organism vs Infarct COPD History of lung cancer with bone metastasis COPD on home oxygen History of DVT Hypertension Hypomagnesemia CKD stage II Former smoker Plan: Patient is requiring 3 to 3-1/2 L oxygen. We will continue to monitor. Possible discharge in a.m. if stable. Will continue Omnicef with doxycycline. Continue Lovenox 1 mg/kg for pulmonary embolism. Resume Eliquis at discharge. Continue nebulizer and other medications as above. Pneumonia is probably less likely and has most likely resolved. Patient will require home O2 at discharge.
[2020-10-28] MEDS: Cefdinir 300 MG CAP PO SCH (08:06)
[2020-10-28] MEDS: HYDROcodone/Acetaminophen 5/325 mg Tablet PO PRN (08:06)
[2020-10-28] MEDS: Saccharomyces boulardii 250 MG CAP PO SCH (08:07)
[2020-10-28] MEDS: Famotidine 20 MG TAB PO SCH (08:07)
[2020-10-28] MEDS: Polyethylene Glycol 3350 17 GM Packet PO SCH (08:08)
[2020-10-28] MEDS: Fluticasone Propionate Nasal Spray 16 gm Bottle NASAL SCH (08:08)
[2020-10-28] MEDS: Enoxaparin Sodium 60 MG/0.6 ML SYRINGE SC SCH (08:08)
[2020-10-28 08:45] VITALS: BP 138/96; TEMP 98.7
[2020-10-28] MEDS: Citalopram 10 MG TAB PO SCH (08:59)
[2020-10-28] MEDS: Nebivolol HCl 5 MG TAB PO SCH (09:00)
[2020-10-28] MEDS: Doxycycline 100 MG CAP PO SCH (09:00)
--- NOTE | 2020-10-28 23:02 | PDOC.DS.DS ---
Provider - Provider Date of Admission: 10/21/20 20:50 Date of Discharge: 10/28/20 Admitting Provider: Elsa Mtz DO Consultations: Oncology, Radiation Oncology Primary Care Physician: Ann Gonzalez PA-C Course - Hospital Course Hospital Course: Patient is a 70-year-old female with lung cancer, COPD and pulmonary embolism on 2.5 mg bid Eliquis presented to the hospital with shortness of breath. Please note that she has stopped Eliquis for 5 days for bone marrow biopsy. Her work- up in the emergency room was consistent with multifocal bilateral pulmonary embolism with possible right middle lobe infectious pneumonitis versus infarction. She was started on Lovenox 1 mg/kg. Echocardiogram showed ejection fraction 55 to 60% with severely enlarged right ventricle cavity with markedly enlarged right atrium size and severe tricuspid regurgitation. She was also evaluated by oncology and radiation oncology service for evaluation for r adiation therapy for bone mets. Lovenox will be transitioned to 5 mg Eliquis bid per oncology recommendation. She was advised to follow-up with oncology as well as Dr. Krishnan as outpatient. She will follow up with radiation oncology for radiation which will be starting from tomorrow. Tylenol 3 has been sent to the pharmacy. She will follow up with radiation oncology for further pain managemen t. Patient understands above plan of care. Final diagnosis: Acute on chronic hypoxic respiratory failure due to PE/ pneumonia Bilateral pulmonary embolism with right ventricular strain Suspected Right middle lobe pneumonia suspected gram-negative organism vs Infarct COPD History of lung cancer with bone metastasis COPD on home oxygen History of DVT Hypertension Hypomagnesemia CKD stage II Former smoker Resuscitation Status: 10/21/20 22:09 Resuscitation Status Routine Resuscitation Status: FULL: Full Resuscitation - Labs Lab Results: 10/26/20 04:18 10/26/20 04:18 - Physical Exam Vitals: Vital Signs (12 hours) Pulse Resp 10/28/20 13:35 77 16 Weight Weight 133 lb 6.4 oz Physical Exam: The patient was seen and examined on the day of discharge. Plan - Discharge Medications Prescriptions: Acetaminophen W/ Codeine [Tylenol #3] 1 tab PO Q6HR PRN #14 tab PRN Reason: Severe Pain (7-10) Ipratropium/Albuterol Sulfate [Duoneb] 3 ml NEB QID PRN #120 neb PRN Reason: Sob &/Or Wheezing Apixaban [Eliquis] 5 mg PO BID #60 tablet Saccharomyces boulardii [Florastor] 250 mg PO DAILY #30 cap Cefdinir [Omnicef] 300 mg PO BID #3 cap Albuterol Sulfate HFA (OR) [Proventil Hfa (or)] 2 puff INH Q4H #1 inh Nebulizer [Truneb Nebulizer] 1 each ASDIR #1 each Doxycycline [Vibramycin] 100 mg PO BID #3 cap Home Medications: Medication Instructions Recorded Confirmed Type Citalopram [CeleXA] 10 mg PO DAILY 11/23/19 10/21/20 History Nebivolol HCl [Bystolic] 5 mg PO DAILY 11/23/19 10/21/20 History Umeclidinium Brm/Vilanterol Tr 1 inh IH DAILY 11/23/19 10/21/20 History [Anoro Ellipta] Acetaminophen W/ Codeine [Tylenol 1 tab PO Q6HR PRN #14 tab 10/28/20 Rx #3] Albuterol Sulfate HFA (OR) 2 puff INH Q4H #1 inh 10/28/20 Rx [Proventil Hfa (or)] Apixaban [Eliquis] 5 mg PO BID #60 tablet 10/28/20 Rx Cefdinir [Omnicef] 300 mg PO BID #3 cap 10/28/20 Rx Doxycycline [Vibramycin] 100 mg PO BID #3 cap 10/28/20 Rx Ipratropium/Albuterol Sulfate 3 ml NEB QID PRN #120 neb 10/28/20 Rx [Duoneb] Nebulizer [Truneb Nebulizer] 1 each ASDIR #1 each 10/28/20 Rx Saccharomyces boulardii [Florastor] 250 mg PO DAILY #30 cap 10/28/20 Rx Allergies: azithromycin Allergy (Verified 10/24/20 17:40) Penicillins Allergy (Verified 10/21/20 23:18) itching - Discharge Instructions Discharge Instructions:: Change Eliquis to 5 mg twice daily MRI of the brain in 3 monthsPrimary Care Provider to arrange and follow Notify your doctor if you experience any: -temperature greater than 100.4F -nausea/vomiting -shortness of breath or chest pain that is unrelieved with rest -unusual bleeding or bleeding that wont stop -questions or concerns that you may have - Follow up Plan Referrals: Ann Gonzalez PA-C [Primary Care Provider] - 7 Days (Call after discharge to schedule follow-up appointment) Bernabe Banuelos MD [Active] - 10/29/20 10:45 am Shelly Nunez APRN [Allied Health Professional] - (Call after discharge to schedule follow-up appointment when radiation is complete) Bernabe Krishnan MD [Active] - 14 Days (call after discharge to schedule follow- up appointment) Disposition: HOME Quality - Care Measures CORE MEASURES:: N/A
== END 2020-10-28 14:59 | disposition home or self-care (01) | DRG 177 ==
LOC: ERS 18:04 → 2NO 20:50 → ONC 10-24 11:13
PROVIDERS: ADMIT Emergency Medicine; ATTEND Internal Medicine
DX: J15.6 Pneumonia due to other Gram-negative bacteria (principal); I26.99 Other pulmonary embolism without acute cor pulmonale; J96.21 Acute and chronic respiratory failure with hypoxia; J44.0 Chronic obstructive pulmonary disease with (acute) lower respiratory infection; C34.90 Malignant neoplasm of unspecified part of unspecified bronchus or lung; C79.51 Secondary malignant neoplasm of bone; Z20.822 Contact with and (suspected) exposure to COVID-19; E83.42 Hypomagnesemia; N18.2 Chronic kidney disease, stage 2 (mild); F41.9 Anxiety disorder, unspecified; F40.240 Claustrophobia; I08.1 Rheumatic disorders of both mitral and tricuspid valves; I12.9 Hypertensive chronic kidney disease with stage 1 through stage 4 chronic kidney disease, or unspecified chronic kidney disease; Z87.891 Personal history of nicotine dependence; Z86.718 Personal history of other venous thrombosis and embolism; Z86.711 Personal history of pulmonary embolism; Z99.81 Dependence on supplemental oxygen; Z90.710 Acquired absence of both cervix and uterus; Z90.722 Acquired absence of ovaries, bilateral; Z88.0 Allergy status to penicillin; Z79.899 Other long term (current) drug therapy; Z79.01 Long term (current) use of anticoagulants
CPT/HCPCS: 20225; 36415; 70553; 71275; 77012; 77014; 77290; 77307; 77334; 80048; 80053; 82553; 83735; 83880; 84484; 85025; 85610; 85730; 87635; 88307; 88341; 88342; 93005; 93306; 94640; 96372; A9579; J0456; J0696; J1650; J2250; J3010; J3475; J3490; J7050; J7620; Q9967; U0003

== ENCOUNTER 2020-11-14 12:03 | Outpatient (CLI) | payer MEDICARE ==
--- NOTE | 2020-11-14 15:12 | PET ---
Radionucleotide PET scan with CT attenuation correction HISTORY: Malignant neoplasm of left lung. Metastatic disease. Restaging. COMPARISON: PET scan 11/16/2019. CTA chest 10/21/2020. FINDINGS: There is slight asymmetry of the right vocal cord. A focus of increased uptake shows max REILLY V 4.3. In the area of left upper lobe parenchymal mass just above the left hilum, where hypermetabolic activ ity was present on the prior study, and a well-defined mass is no longer visible.. There is irregular uptake more centrally at the left hilum, however, in the area of ill-defined soft tissue de nsity. Max SUV 4.6 (previously 10.8). A nonenlarged prevascular lymph node of the mediastinum shows max SUV 4.6. A focus of uptake at the l eft aorticopulmonary window shows max SUV 8.2. A well-defined lymph node is not discernible on the CT images. Radiotracer uptake associated with the large destructive right pelvic mass shows max SUV 7.0. No othe r areas of hypermetabolic bone activity evident. Physiologic uptake is apparent within the enteric system and along each urinary tract. IMPRESSION : While the lobular well-defined left upper lobe nodule is no longer visible/hypermetabolic, there are now abnormal/hypermetabolic lymph nodes within the left side of the mediastinum. The destructive right pelvic mass is the only hypermetabolic bone lesion. Small focus of asymmetric/increased uptake at the right vocal cord. Please correlate with direct visu alization.
== END 2020-11-14 12:04 | disposition home or self-care (01) ==
LOC: PET 12:03
PROVIDERS: ATTEND Internal Medicine Hematology & Oncology
DX: C34.92 Malignant neoplasm of unspecified part of left bronchus or lung (principal); R19.00 Intra-abdominal and pelvic swelling, mass and lump, unspecified site
CPT/HCPCS: 78815; A9552

== ENCOUNTER 2020-11-27 00:13 | Inpatient (IN) | payer MEDICARE ==
[2020-11-27 03:00] LABS: Hemoglobin 14.3 g/dL (12.0-16.0); Mean Corpuscular HGB CONC 34.9 g/dL (32.0-36.0); Mean Corpuscular Hemoglobin 31.4 pg (27.0-31.0); RBC Distribution Width 13.8 % (11.5-14.5); Red Blood Cell (RBC) Count 4.56 mill/uL (4.20-5.40); White Blood Cell (WBC) Count 2.8 thou/uL (4.8-10.8)
[2020-11-27 03:10] LABS: ALT (SGPT) 22 U/L (8-55); AST (SGOT) 28 U/L (5-34); Albumin 3.6 g/dL (3.4-4.8); Alkaline Phosphatase 95 U/L (40-110); Anion Gap 17 mmol/L (10-20); BUN (Urea Nitrogen) 29 mg/dL (9.8-20.1); Bilirubin, Total 0.8 mg/dL (0.2-1.2); Calc. Creatinine Clearance 0 mL/min (70-130); Calcium 8.9 mg/dL (7.8-10.44); Carbon Dioxide 30 mmol/L (23-31); Chloride 82 mmol/L (98-107); Globulin 2.2 g/dL (2.4-3.5); Glucose 146 mg/dL (83-110); Potassium 4.7 mmol/L (3.5-5.1); Protein, Total 5.8 g/dL (5.8-8.1); Sodium 124 mmol/L (136-145)
[2020-11-27 03:13] LABS: #Lymphocytes 0.3 thou/uL (1.20-3.40); #Monocytes 0.1 thou/uL (0.11-0.59); #Neutrophils 2.3 thou/uL (1.40-6.50); %Eosinophils 1.4 % (0.0-10.0); %Lymphocytes 10.8 % (21.0-51.0); %Monocytes 4.6 % (0.0-10.0); %Neutrophils 83.2 % (42.0-75.0); Mean Platelet Volume 8.4 fL (7.4-10.4); Platelet Count 89 thou/uL (130-400); Platelet Morphology Comment Appears Decreased
[2020-11-27 03:32] LABS: CKMB 0.4 ng/mL (0-6.6)
[2020-11-27 04:53] LABS: Bacteria/HPF None Seen HPF (None Seen); Bilirubin Negative (Negative); Blood, Urine Negative (Negative); Clarity Clear (Clear); Glucose, Urine (Dipstick) Normal (Negative); Ketone, Urine Negative (Negative); Leukocyte Negative Leu/uL (Negative); Nitrite Negative (Negative); Protein, Urine (Dipstick) 100 mg/dL (Neg-Trace); RBC/HPF 0-3 HPF (0-3); Squamous Epithelial None Seen HPF (0-3); Urobilinogen Normal mg/dL (Less than 2); WBC/HPF 0-3 HPF (0-3)
[2020-11-27 04:58] LABS: SARS-CoV-2 NAA Rapid Test Not Detected (NotDetected)
[2020-11-27] MEDS ORDERED: Ondansetron PF 4 MG/2 ML Vial IVP PRN (06:45)
[2020-11-27] MEDS ORDERED: Acetaminophen 325 MG TAB PO PRN (06:45)
[2020-11-27] MEDS ORDERED: Ondansetron ODT 4 MG TAB SL PRN (06:45)
[2020-11-27] MEDS: Sodium Chloride 0.9% 1,000 ML IV SCH ×3 (07:02→17:12)
--- NOTE | 2020-11-27 07:58 | CT ---
Final interpretation Head CT without contrast: 11/27/2020 COMPARISON: None HISTORY: Confusion, generalized weakness, multiple falls FINDINGS: The visualized paranasal sinuses and mastoid air cells are well-aerated. There is no intrac ranial hemorrhage, midline shift or mass effect. Mild periventricular hypodensity is noted, which may signify small vessel disease. IMPRESSION: No intracranial hemorrhage.
[2020-11-27 09:50] LABS: Anion Gap 13 mmol/L (10-20); BUN (Urea Nitrogen) 20 mg/dL (9.8-20.1); Calc. Creatinine Clearance 0 mL/min (70-130); Calcium 7.6 mg/dL (7.8-10.44); Carbon Dioxide 29 mmol/L (23-31); Chloride 89 mmol/L (98-107); Glucose 110 mg/dL (83-110); Potassium 3.6 mmol/L (3.5-5.1); Sodium 127 mmol/L (136-145)
--- NOTE | 2020-11-27 10:28 | RAD ---
Portable frontal chest radiograph: 11/27/2020 COMPARISON: 10/26/2013 HISTORY: History of lung cancer, weakness, recent fall FINDINGS: There is diffuse increased linear interstitial density with pulmonary hyperinflation sugges ting COPD. The cardiac silhouette is enlarged. There is masslike opacity in the left suprahilar/left upper lobe region consistent with the patient's history of lung cancer, better assessed on the T2 01/28/2021 PET/CT. No pneumothorax, lobar consolidation, or alveolar edema. IMPRESSION: Left upper lobe/left perihilar density consistent with the patient's history of lung canc er. No focal consolidation or alveolar edema.
--- NOTE | 2020-11-27 11:35 | PDOC.HHP ---
Hospitalist HPI Recurrent falls ED Course: The patient is a 70-year-old female with history of COPD, DVT and PE, and lung cancer currently receiving chemotherapy with Dr. Flanagan. The patient was brought to the hospital by family due to generalized weakness, confusion, and multiple falls over the past few days. She has not been able to eat or drink well. Her daughter stated that the patient's symptoms started after her recent chemo and progressed since then. Denies fever, chills, nausea, vomiting, palpitations, or dizziness. Allergies/Adverse Reactions: Allergy/AdvReac Type Severity Reaction Status Date / Time azithromycin Allergy Verified 10/24/20 17:40 Penicillins Allergy itching Verified 10/21/20 23:18 Home Medications: Medication Instructions Recorded Confirmed Type Citalopram [CeleXA] 10 mg PO DAILY 11/23/19 10/21/20 History Nebivolol HCl [Bystolic] 5 mg PO DAILY 11/23/19 10/21/20 History Umeclidinium Brm/Vilanterol Tr 1 inh IH DAILY 11/23/19 10/21/20 History [Anoro Ellipta] Acetaminophen W/ Codeine [Tylenol 1 tab PO Q6HR PRN #14 tab 10/28/20 Rx #3] Albuterol Sulfate HFA (OR) 2 puff INH Q4H #1 inh 10/28/20 Rx [Proventil Hfa (or)] Apixaban [Eliquis] 5 mg PO BID #60 tablet 10/28/20 Rx Cefdinir [Omnicef] 300 mg PO BID #3 cap 10/28/20 Rx Doxycycline [Vibramycin] 100 mg PO BID #3 cap 10/28/20 Rx Ipratropium/Albuterol Sulfate 3 ml NEB QID PRN #120 neb 10/28/20 Rx [Duoneb] Nebulizer [Truneb Nebulizer] 1 each MC ASDIR #1 each 10/28/20 Rx Saccharomyces boulardii [Florastor] 250 mg PO DAILY #30 cap 10/28/20 Rx Albuterol Sulfate HFA (OR) 2 puff INH Q4H #1 inh 10/29/20 Rx [Proventil Hfa (or)] Ipratropium/Albuterol Sulfate 3 ml NEB QID PRN #100 neb 10/29/20 Rx [Duoneb] Past History: PMHx: Lung cancer status post chemo and radiation, COPD, PE, and DVT PSHx: Bone marrow biopsy FHx: Noncontributory for current presentation Social: Denies alcohol use, illicit drug use, and the patient is a former smoker Hospitalist HPI ROS All other systems reviewed; all pertinent +/- noted in HPI/Subj Hospitalist Exam General Appearance: awake alert ENT: normocephalic atraumatic Neck: supple Heart: RRR, no murmur, no gallops Respiratory: normal chest expansion, no tachypnea, rhonchi Gastrointestinal: soft Extremities: no cyanosis, no clubbing Neurological: cranial nerve grossly intact, no focal deficits Hospitalist Results Result Diagrams: 11/27/20 02:23 11/27/20 15:21 Lab results: Laboratory Last Values WBC 2.8 thou/uL (4.8-10.8) L 11/27/20 02:23 RBC 4.56 mill/uL (4.20-5.40) 11/27/20 02:23 Hgb 14.3 g/dL (12.0-16.0) 11/27/20 02:23 Hct 41.0 % (36.0-47.0) 11/27/20 02:23 MCV 90.0 fL (78.0-98.0) 11/27/20 02:23 MCH 31.4 pg (27.0-31.0) H 11/27/20 02:23 MCHC 34.9 g/dL (32.0-36.0) 11/27/20 02:23 RDW 13.8 % (11.5-14.5) 11/27/20 02:23 Plt Count 89 thou/uL (130-400) L 11/27/20 02:23 MPV 8.4 fL (7.4-10.4) 11/27/20 02:23 Neutrophils % 83.2 % (42.0-75.0) H 11/27/20 02:23 Neutrophils % (Manual) Not Reportable 11/27/20 02:23 Lymphocytes % 10.8 % (21.0-51.0) L 11/27/20 02:23 Monocytes % 4.6 % (0.0-10.0) 11/27/20 02:23 Eosinophils % 1.4 % (0.0-10.0) 11/27/20 02:23 Basophils % 0.0 % (0.0-1.0) 11/27/20 02:23 Neutrophils # 2.3 thou/uL (1.40-6.50) 11/27/20 02:23 Lymphocytes # 0.3 thou/uL (1.20-3.40) L 11/27/20 02:23 Monocytes # 0.1 thou/uL (0.11-0.59) L 11/27/20 02:23 Eosinophils # 0.0 thou/uL (0.0-0.7) 11/27/20 02:23 Basophils # 0.0 thou/uL (0.0-0.2) 11/27/20 02:23 Plt Morphology Comment Appears Decreased L 11/27/20 02:23 Sodium 127 mmol/L (136-145) L 11/27/20 09:18 Potassium 3.6 mmol/L (3.5-5.1) 11/27/20 09:18 Chloride 89 mmol/L (98-107) L 11/27/20 09:18 Carbon Dioxide 29 mmol/L (23-31) 11/27/20 09:18 Anion Gap 13 mmol/L (10-20) 11/27/20 09:18 BUN 20 mg/dL (9.8-20.1) 11/27/20 09:18 Creatinine 0.70 mg/dL (0.6-1.1) 11/27/20 09:18 Estimated GFR (MDRD) 82 11/27/20 09:18 Glucose 110 mg/dL (83-110) 11/27/20 09:18 Calcium 7.6 mg/dL (7.8-10.44) L 11/27/20 09:18 Total Bilirubin 0.8 mg/dL (0.2-1.2) 11/27/20 02:23 AST 28 U/L (5-34) 11/27/20 02:23 ALT 22 U/L (8-55) 11/27/20 02:23 Alkaline Phosphatase 95 U/L (40-110) 11/27/20 02:23 CK-MB (CK-2) 0.4 ng/mL (0-6.6) 11/27/20 02:23 Troponin I 0.035 ng/mL (< 0.028) H 11/27/20 02:23 B-Natriuretic Peptide 1094.4 pg/mL (0-100) H 11/27/20 02:23 Serum Total Protein 5.8 g/dL (5.8-8.1) 11/27/20 02:23 Albumin 3.6 g/dL (3.4-4.8) 11/27/20 02:23 Globulin 2.2 g/dL (2.4-3.5) L 11/27/20 02:23 Albumin/Globulin Ratio 1.6 g/dL (1.2-2.2) 11/27/20 02:23 Urine Color Yellow (Yellow) 11/27/20 04:37 Urine Clarity Clear (Clear) 11/27/20 04:37 Urine pH 6.0 (5.0-9.0) 11/27/20 04:37 Ur Specific [place] 1.030 (1.002-1.036) 11/27/20 04:37 Urine Protein 100 mg/dL (Neg-Trace) A 11/27/20 04:37 Urine Glucose (UA) Normal mg/dL (Negative) 11/27/20 04:37 Urine Ketones Negative mg/dL (Negative) 11/27/20 04:37 Urine Blood Negative (Negative) 11/27/20 04:37 Urine Nitrite Negative (Negative) 11/27/20 04:37 Urine Bilirubin Negative (Negative) 11/27/20 04:37 Urine Urobilinogen Normal mg/dL (Less than 2) 11/27/20 04:37 Ur Leukocyte Esterase Negative Uyen/uL (Negative) 11/27/20 04:37 Urine RBC 0-3 HPF (0-3) 11/27/20 04:37 Urine WBC 0-3 HPF (0-3) 11/27/20 04:37 Ur Squamous Epith Cells None Seen HPF (0-3) 11/27/20 04:37 Urine Bacteria None Seen HPF (None Seen) 11/27/20 04:37 Hyaline Casts 0-3 LPF (0-3) 11/27/20 04:37 Influenza A RNA INAAT Not Detected (NotDetected) 11/27/20 04:07 Influenza B RNA INAAT Not Detected (NotDetected) 11/27/20 04:07 SARS-CoV-2 Rap RNA(RT-PCR) Not Detected (NotDetected) 11/27/20 04:07 Hospitalist H&P A/P (1) Hyponatremia Code(s): E87.1 - HYPO-OSMOLALITY AND HYPONATREMIA Status: Acute (2) Metabolic encephalopathy Code(s): G93.41 - METABOLIC ENCEPHALOPATHY Status: Acute (3) COPD (chronic obstructive pulmonary disease) Status: Acute (4) Lung cancer Code(s): C34.90 - MALIGNANT NEOPLASM OF UNSP PART OF UNSP BRONCHUS OR LUNG Status: Acute (5) Pulmonary embolism Code(s): I26.99 - OTHER PULMONARY EMBOLISM WITHOUT ACUTE COR PULMONALE Status: Acute Plan: Acute metabolic encephalopathy likely due to hyponatremia secondary to SIADH is also likely given the patient history of lung cancer. Serum is mildly low and urine osmolality is high. Since her urine osmolality is more than 2 times the serum osmolality, the patient will benefit from IV NS and Lasix to induce water diuresis. Her hyponatremia is likely chronic in nature. If we can get her sodium level to above 125 that will likely suffice in improving her symptoms. Our goal is to increase the sodium level by no more than 8 mEq within the first 24 hours. Resume her home medications including Eliquis.
[2020-11-27] MEDS ORDERED: Acetaminophen/Codeine 30-300mg Tablet PO PRN (11:40)
[2020-11-27] MEDS ORDERED: Sodium Chloride 0.9% 1,000 ML IV SCH (11:45)
[2020-11-27 12:35] LABS: Anion Gap 11 mmol/L (10-20); BUN (Urea Nitrogen) 18 mg/dL (9.8-20.1); Calc. Creatinine Clearance 0 mL/min (70-130); Calcium 7.7 mg/dL (7.8-10.44); Carbon Dioxide 28 mmol/L (23-31); Chloride 88 mmol/L (98-107); Glucose 117 mg/dL (83-110); Potassium 3.7 mmol/L (3.5-5.1); Sodium 123 mmol/L (136-145)
[2020-11-27 14:45] LABS: Sodium, Urine Less than 20 mmol/L (Not Available)
[2020-11-27 15:54] LABS: Anion Gap 12 mmol/L (10-20); BUN (Urea Nitrogen) 17 mg/dL (9.8-20.1); Calc. Creatinine Clearance 0 mL/min (70-130); Calcium 7.4 mg/dL (7.8-10.44); Carbon Dioxide 25 mmol/L (23-31); Chloride 89 mmol/L (98-107); Glucose 119 mg/dL (83-110); Potassium 3.7 mmol/L (3.5-5.1); Sodium 122 mmol/L (136-145)
[2020-11-27] MEDS: Albuterol Sulfate 2.5 mg/3 ml Neb NEB SCH ×4 (16:41→22:55)
[2020-11-27] MEDS ORDERED: Furosemide 40 MG/4 ML VIAL SLOW IVP SCH (18:30)
[2020-11-27] MEDS: Apixaban 5 MG TAB PO SCH (20:44)
[2020-11-27 21:43] LABS: Anion Gap 14 mmol/L (10-20); BUN (Urea Nitrogen) 13 mg/dL (9.8-20.1); Calc. Creatinine Clearance 69 mL/min (70-130); Carbon Dioxide 30 mmol/L (23-31); Chloride 85 mmol/L (98-107); Glucose 120 mg/dL (83-110); Potassium 3.2 mmol/L (3.5-5.1); Sodium 126 mmol/L (136-145)
[2020-11-28] MEDS: Albuterol Sulfate 2.5 mg/3 ml Neb NEB SCH ×6 (02:57→22:21)
[2020-11-28 05:24] LABS: Anion Gap 12 mmol/L (10-20); BUN (Urea Nitrogen) 14 mg/dL (9.8-20.1); Calc. Creatinine Clearance 72 mL/min (70-130); Calcium 8.1 mg/dL (7.8-10.44); Carbon Dioxide 33 mmol/L (23-31); Chloride 84 mmol/L (98-107); Glucose 113 mg/dL (83-110); Potassium 3.3 mmol/L (3.5-5.1); Sodium 126 mmol/L (136-145)
[2020-11-28 06:07] LABS: Band 10 % (5-11); Elliptocytes SLIGHT = 2-5 cells (100X) (0-1/hpf); Eosinophils 2 % (0-10); Hemoglobin 12.7 g/dL (12.0-16.0); Lymphocytes 10 % (21-51); MDiff Complete? YES; Mean Corpuscular HGB CONC 34.1 g/dL (32.0-36.0); Mean Corpuscular Hemoglobin 29.9 pg (27.0-31.0); Mean Corpuscular Volume 87.7 fL (78.0-98.0); Mean Platelet Volume 10.4 fL (7.4-10.4); Monocytes 14 % (0-10); Neutrophil 64 % (42-75); Platelet Count 47 thou/uL (130-400); Platelet Morphology Comment Appears Decreased; RBC Distribution Width 13.8 % (11.5-14.5); Red Blood Cell (RBC) Count 4.26 mill/uL (4.20-5.40); White Blood Cell (WBC) Count 1.3 thou/uL (4.8-10.8)
[2020-11-28] MEDS: Apixaban 5 MG TAB PO SCH ×2 (09:18→20:50)
[2020-11-28] MEDS: Nebivolol HCl 5 MG TAB PO SCH (09:18)
--- NOTE | 2020-11-28 10:11 | PDOC.HOSPP ---
- Subjective Encounter Date: 11/28/20 Subjective: The patient's mental status improved since yesterday. - Objective Vital Signs & Weight: Vital Signs (12 hours) Temp Pulse Resp BP Pulse Ox 11/28/20 07:46 98.1 F 94 16 108/59 L 91 L 11/28/20 03:35 98.6 F 101 H 18 119/58 L 96 11/28/20 02:57 16 11/27/20 22:55 89 20 92 L Weight Admit Weight 127 lb 6.835 oz Weight 127 lb 6.835 oz I&O: 11/27/20 11/28/20 11/29/20 06:59 06:59 06:59 Intake Total 100 Output Total 800 Balance -700 Result Diagrams: 11/28/20 04:11 11/28/20 04:11 Hospitalist ROS - Medication Medications: Active Medications Generic Name Dose Route Start Last Admin Trade Name Freq PRN Reason Stop Dose Admin Albuterol Sulfate 2.5 mg 11/27/20 12:15 11/28/20 08:38 Albuterol Sulfate 2.5 Mg/3 Ml Neb NEB 2.5 mg [id number] QUINN Administration Apixaban 5 mg 11/27/20 21:00 11/28/20 09:18 Apixaban 5 Mg Tab PO 5 mg BID QUINN Administration Nebivolol 5 mg 11/28/20 09:00 11/28/20 09:18 Nebivolol Hcl 5 Mg Tab PO 5 mg DAILY QUINN Administration Hospitalist Exam Vitals: Vital Signs (12 hours) Temp Pulse Resp BP Pulse Ox 11/28/20 07:46 98.1 F 94 16 108/59 L 91 L 11/28/20 03:35 98.6 F 101 H 18 119/58 L 96 11/28/20 02:57 16 11/27/20 22:55 89 20 92 L Weight Admit Weight 127 lb 6.835 oz Weight 127 lb 6.835 oz General Appearance: awake alert ENT: normocephalic atraumatic Neck: supple Heart: RRR Respiratory: normal chest expansion, no tachypnea Gastrointestinal: soft Extremities: no cyanosis, no clubbing Neurological: cranial nerve grossly intact, no focal deficits Hosp A/P (1) Hyponatremia Code(s): E87.1 - HYPO-OSMOLALITY AND HYPONATREMIA Status: Acute (2) Metabolic encephalopathy Code(s): G93.41 - METABOLIC ENCEPHALOPATHY Status: Acute (3) COPD (chronic obstructive pulmonary disease) Status: Acute (4) Lung cancer Code(s): C34.90 - MALIGNANT NEOPLASM OF UNSP PART OF UNSP BRONCHUS OR LUNG Status: Acute (5) Pulmonary embolism Code(s): I26.99 - OTHER PULMONARY EMBOLISM WITHOUT ACUTE COR PULMONALE Status: Acute - Plan 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 We are managing with fluid restriction. She received normal saline in the ER which lowered her sodium further due to high osmolality in the urine. I have administered Lasix yesterday which led to improvement in the sodium level by inducing water diuresis. She is not severely hyponatremic anymore, I will continue management with fluid restriction and add salt tablets. Check BMP later this afternoon and tomorrow morning.
[2020-11-28] MEDS ORDERED: Potassium Chloride 20 MEQ TAB PO SCH (10:15)
[2020-11-28] MEDS: Sodium Chloride 1 GM TAB PO SCH ×2 (12:08→16:26)
[2020-11-28 12:14] LABS: Anion Gap 13 mmol/L (10-20); BUN (Urea Nitrogen) 15 mg/dL (9.8-20.1); Calc. Creatinine Clearance 68 mL/min (70-130); Calcium 7.9 mg/dL (7.8-10.44); Carbon Dioxide 31 mmol/L (23-31); Chloride 83 mmol/L (98-107); Glucose 110 mg/dL (83-110); Potassium 3.3 mmol/L (3.5-5.1); Sodium 124 mmol/L (136-145)
[2020-11-28] MEDS ORDERED: Scopolamine 1.5 mg/72 hour Patch TD SCH (16:45)
[2020-11-29] MEDS: Albuterol Sulfate 2.5 mg/3 ml Neb NEB SCH ×6 (02:07→22:50)
[2020-11-29 03:48] LABS: #Eosinphils 0.1 thou/uL (0.0-0.7); #Lymphocytes 0.2 thou/uL (1.20-3.40); #Monocytes 0.1 thou/uL (0.11-0.59); #Neutrophils 1.4 thou/uL (1.40-6.50); %Eosinophils 5.7 % (0.0-10.0); %Lymphocytes 10.1 % (21.0-51.0); %Monocytes 6.8 % (0.0-10.0); %Neutrophils 77.4 % (42.0-75.0); Hemoglobin 11.8 g/dL (12.0-16.0); Mean Corpuscular HGB CONC 34.4 g/dL (32.0-36.0); Mean Corpuscular Hemoglobin 30.2 pg (27.0-31.0); Mean Platelet Volume 11.2 fL (7.4-10.4); Platelet Count 34 thou/uL (130-400); RBC Distribution Width 13.8 % (11.5-14.5); White Blood Cell (WBC) Count 1.8 thou/uL (4.8-10.8)
[2020-11-29 04:04] LABS: Anion Gap 16 mmol/L (10-20); BUN (Urea Nitrogen) 17 mg/dL (9.8-20.1); Calc. Creatinine Clearance 72 mL/min (70-130); Calcium 8.1 mg/dL (7.8-10.44); Carbon Dioxide 28 mmol/L (23-31); Chloride 84 mmol/L (98-107); Glucose 110 mg/dL (83-110); Potassium 3.6 mmol/L (3.5-5.1); Sodium 124 mmol/L (136-145)
[2020-11-29] MEDS: Sodium Chloride 1 GM TAB PO SCH ×3 (08:30→21:27)
[2020-11-29] MEDS: Nebivolol HCl 5 MG TAB PO SCH (08:31)
[2020-11-29] MEDS: Apixaban 5 MG TAB PO SCH ×2 (08:31→21:26)
[2020-11-29] MEDS ORDERED: Furosemide 20 MG/2 ML VIAL SLOW IVP SCH (08:45)
--- NOTE | 2020-11-29 10:09 | PDOC.HOSPP ---
- Subjective Encounter Date: 11/29/20 Subjective: The patient has no new complaints today. Her appetite is still not up to par. - Objective Vital Signs & Weight: Vital Signs (12 hours) Temp Pulse Resp BP Pulse Ox 11/29/20 07:30 87 16 93 L 11/29/20 04:00 97.6 F 90 15 102/56 L 92 L 11/29/20 02:07 16 11/28/20 23:30 91 15 104/55 L 11/28/20 22:21 79 16 95 Weight Admit Weight 127 lb 6.835 oz Weight 127 lb 6.835 oz I&O: 11/28/20 11/29/20 11/30/20 06:59 06:59 06:59 Intake Total 100 475 440 Output Total 800 480 Balance -700 -5 440 Result Diagrams: 11/29/20 03:06 11/29/20 03:06 Hospitalist ROS - Medication Medications: Active Medications Generic Name Dose Route Start Last Admin Trade Name Freq PRN Reason Stop Dose Admin Albuterol Sulfate 2.5 mg 11/27/20 12:15 11/29/20 07:30 Albuterol Sulfate 2.5 Mg/3 Ml Neb NEB 2.5 mg [id number] QUINN Administration Apixaban 5 mg 11/27/20 21:00 11/29/20 08:31 Apixaban 5 Mg Tab PO 5 mg BID QUINN Administration Nebivolol 5 mg 11/28/20 09:00 11/29/20 08:31 Nebivolol Hcl 5 Mg Tab PO 5 mg DAILY QUINN Administration Scopolamine 1.5 mg 11/28/20 16:45 11/28/20 17:12 Scopolamine 1.5 Mg/72 Hour Patch TD 1.5 mg Q3D QUINN Administration Hospitalist Exam Vitals: Vital Signs (12 hours) Temp Pulse Resp BP Pulse Ox 11/29/20 07:30 87 16 93 L 11/29/20 04:00 97.6 F 90 15 102/56 L 92 L 11/29/20 02:07 16 11/28/20 23:30 91 15 104/55 L 11/28/20 22:21 79 16 95 Weight Admit Weight 127 lb 6.835 oz Weight 127 lb 6.835 oz General Appearance: awake alert ENT: normocephalic atraumatic Neck: supple Heart: RRR Respiratory: CTAB, no wheezes Gastrointestinal: soft Neurological: cranial nerve grossly intact, no new deficit Hosp A/P (1) Hyponatremia Code(s): E87.1 - HYPO-OSMOLALITY AND HYPONATREMIA Status: Acute (2) Metabolic encephalopathy Code(s): G93.41 - METABOLIC ENCEPHALOPATHY Status: Acute (3) COPD (chronic obstructive pulmonary disease) Status: Acute (4) Lung cancer Code(s): C34.90 - MALIGNANT NEOPLASM OF UNSP PART OF UNSP BRONCHUS OR LUNG Status: Acute (5) Pulmonary embolism Code(s): I26.99 - OTHER PULMONARY EMBOLISM WITHOUT ACUTE COR PULMONALE Status: Acute (6) SIADH (syndrome of inappropriate ADH production) Status: Acute - Plan 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 We are managing with fluid restriction and salt replacement. She received normal saline in the ER which lowered her sodium further due to high osmolality in the urine. Sodium level initially improved after administration of Lasix. However, her hyponatremia is now worsening. She does not have any severe symptoms. I have consulted nephrology to assist with management. Her sodium level was within normal limits earlier this year. Ensure supplements due to poor oral intake.
[2020-11-29] MEDS ORDERED: Magnesium Sulfate 4 GM in Sodium Chloride 0.9% 250 ML 250 ML IVPB SCH (13:00)
[2020-11-29] MEDS ORDERED: Potassium Phosphate 30 MMOL in Sodium Chloride 0.9% 250 ML 250 ML IVPB SCH (13:00)
--- NOTE | 2020-11-29 13:28 | CON ---
DATE OF CONSULTATION: 11/29/2020 SERVICE: Nephrology. REASON FOR CONSULTATION: Hyponatremia. REQUESTED BY: Patience Adams MD. HISTORY OF PRESENT ILLNESS: This is a 70-year-old female with known history of COPD, prior venous thromboembolism on Eliquis as well as lung cancer, on chemotherapy, who was brought in to the hospital due to generalized weakness associated with confusion, gait instability and multiple falls. The patient recently had a cycle of chemotherapy, following which she reported poor oral intake as well as nausea and vomiting and poor appetite. Symptoms reportedly progressed such that the patient was more confused, hence presentation to the hospital on November 27 when she was admitted. On presentation, the patient was noted to have a sodium of 124, which improved transiently with IV fluid therapy to a peak of 127 before trending down. The patient still complains of poor oral intake, but nausea and vomiting has subsided. She is fatigued, but she seems oriented. There was no associated fever, hematemesis, hematochezia, dysuria, or edema. PAST MEDICAL HISTORY: 1. Lung cancer, on chemotherapy. 2. COPD. 3. Prior PE and DVT. PAST SURGICAL HISTORY: 1. Bone marrow biopsy. FAMILY HISTORY: Reviewed, but noncontributory. SOCIAL HISTORY: Former smoker. Denied alcohol or recreational drug use. ALLERGIES: REPORTED ALLERGIC AND ADVERSE REACTION TO THE FOLLOWING; 1. AZITHROMYCIN. 2. PENICILLIN. MEDICATIONS: Prior to hospital medications are as follows; 1. Prochlorperazine 10 mg q.6 p.r.n. 2. Zofran 8 mg p.o. q.8 p.r.n. 3. Breo one inhalation daily. 4. Bystolic 5 mg p.o. daily. 5. Celexa 10 mg p.o. daily. 6. Folic acid 1 mg p.o. daily. 7. Eliquis 5 mg p.o. b.i.d. 8. Saccharomyces boulardii 250 mg p.o. daily. 9. Albuterol HFA 2 puffs inhalation q.4 p.r.n. Current hospital medications are as follows; 1. Salt tablets 1 g b.i.d. with meals. 2. Eliquis 5 mg p.o. b.i.d. 3. Albuterol HFA p.r.n. 4. Bystolic 5 mg p.o. daily. 5. Scopolamine patch 1.5 mg transdermal every 3 days. 6. Acetaminophen with Codeine 1 tablet every 6 hours p.r.n. REVIEW OF SYSTEMS: A 12-point review of systems performed was negative other than pertinent positives and negatives included in the History of Present Illness. PHYSICAL EXAMINATION: VITAL SIGNS: Temperature 99.8, pulse 99, respiratory rate 18, SpO2 of 94% on 3 L nasal cannula, blood pressure is 90/52. I and O in the last 24 hours showed total intake of 475 with total output of 480. GENERAL: Elderly female, in no obvious distress. Fatigued and afebrile. HEENT: Normocephalic, atraumatic. Oral mucosa is moist. NECK: Supple with no obvious JVD. CARDIOVASCULAR: Regular rhythm and rate with normal heart sounds 1 and 2. RESPIRATORY: Fair air entry bilaterally with scattered transmitted breath sounds. No obvious rhonchi were appreciated. Work of breathing is not increased. GI: Flat, soft, nondistended, nontender with normal bowel sounds. EXTREMITIES: Grossly normal looking atraumatic with no edema or erythema. SKIN: Decreased skin turgor noted. EVENT ORGANIZER: Conscious and alert. Oriented to person and place at least. Moves all extremities. DIAGNOSTIC DATA: CBC today showed WBC count of 1.8, hemoglobin of 11.8, MCV of 88.0, platelets of 34. On presentation on November 27; WBC was 2.8, hemoglobin 14.3, and platelets 89. On November 12; the WBC was 4.2, hemoglobin 12.5, and platelets 234. Chemistry earlier today showed sodium 124, potassium 3.6, chloride 84, CO2 of 28, BUN 17, creatinine 0.65, glucose 110, calcium 8.1. On presentation on November 27; sodium was 124, chloride 82, potassium 4.7, creatinine 0.82. However, on November 12; sodium was 137, potassium 97, CO2 of 31, BUN 10, creatinine 0.69. Urinalysis on presentation on November 27 showed yellow clear urine with pH of 6.0, specific gravity of 1.030. Urine protein positive; normal glucose; negative ketone, blood, nitrite, and leukocyte esterase. Microscopy showed 0 to 3 rbc's and 0 to 3 wbc's. Urine osmolality was 629 while plasma osmolality on presentation was 258. Urine sodium on presentation was less than 20. ASSESSMENT: 1. Hyponatremia: Seems to be multifactorial from volume depletion with appropriate antidiuretic hormone secretion superimposed from 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 The patient is clinically dry and has lung cancer, which predisposes her to syndrome of inappropriate antidiuretic hormone secretion, though sodium has been largely normal prior to last cycle of chemotherapy. The patient reported to nausea and vomiting, which is a pertinent stimulator of syndrome of inappropriate antidiuretic hormone secretion. 2. Volume depletion. 3. Poor solute intake also is contributory to the hyponatremia. 4. Pancytopenia related to chemotherapy. 5. Protein-calorie malnutrition. 6. Hypokalemia also may be contributory to hyponatremia. 7. Encepahalopathy: Due to electrolyte derangement. Improved. PLAN: 1. We will increase the salt tablet to one tablet t.i.d. 2. We will also start the patient on Ensure and leaves to provide more solute. 3. [place] solute and protein intake advised. 4. We will also get serum phosphorus and potassium as well as magnesium and replete if indicated. 5. We will repeat BMP later today and adjust treatment appropriately. 6. We will also continue free water restriction Many thanks for involving us in the care of this patient. We will follow along with you. Job ID: [id number] MTDD
[2020-11-30] MEDS: Albuterol Sulfate 2.5 mg/3 ml Neb NEB SCH ×3 (02:30→11:16)
[2020-11-30 04:39] LABS: #Eosinphils 0.1 thou/uL (0.0-0.7); #Lymphocytes 0.2 thou/uL (1.20-3.40); #Monocytes 0.2 thou/uL (0.11-0.59); #Neutrophils 1.7 thou/uL (1.40-6.50); %Basophils 1.4 % (0.0-1.0); %Eosinophils 3.3 % (0.0-10.0); %Lymphocytes 8.5 % (21.0-51.0); %Neutrophils 78.7 % (42.0-75.0); Hemoglobin 11.9 g/dL (12.0-16.0); Mean Corpuscular HGB CONC 34.3 g/dL (32.0-36.0); Mean Corpuscular Hemoglobin 30.3 pg (27.0-31.0); Mean Corpuscular Volume 88.3 fL (78.0-98.0); Mean Platelet Volume 11.1 fL (7.4-10.4); Platelet Count 38 thou/uL (130-400); RBC Distribution Width 13.9 % (11.5-14.5); Red Blood Cell (RBC) Count 3.94 mill/uL (4.20-5.40); White Blood Cell (WBC) Count 2.1 thou/uL (4.8-10.8)
[2020-11-30 04:45] LABS: Anion Gap 14 mmol/L (10-20); BUN (Urea Nitrogen) 21 mg/dL (9.8-20.1); Calc. Creatinine Clearance 59 mL/min (70-130); Calcium 8.1 mg/dL (7.8-10.44); Carbon Dioxide 33 mmol/L (23-31); Chloride 85 mmol/L (98-107); Glucose 114 mg/dL (83-110); Potassium 3.6 mmol/L (3.5-5.1); Sodium 128 mmol/L (136-145)
[2020-11-30 08:07] LABS: Phosphorus 3.2 mg/dL (2.3-4.7)
[2020-11-30] MEDS: Sodium Chloride 1 GM TAB PO SCH ×3 (08:07→22:11)
[2020-11-30] MEDS: Nebivolol HCl 5 MG TAB PO SCH ×2 (08:07→11:40)
[2020-11-30] MEDS: Apixaban 5 MG TAB PO SCH ×3 (08:08→22:12)
--- NOTE | 2020-11-30 10:23 | PDOC.NEPPN ---
- Subjective Encounter Date: 11/30/20 Subjective: Seen and examined. awake and conversational. No fever. - Objective Vital Signs & Weight: Vital Signs (12 hours) Temp Pulse Resp BP Pulse Ox 11/30/20 08:30 88 20 94 L 11/30/20 04:00 98.5 F 99 24 H 92/55 L 93 L 11/30/20 02:30 95 11/29/20 22:50 95 Weight Admit Weight 127 lb 6.835 oz Weight 123 lb 7.342 oz I&O: 11/29/20 11/30/20 12/01/20 06:59 06:59 06:59 Intake Total 475 440 Output Total 480 Balance -5 440 Result Diagrams: 12/01/20 04:16 12/01/20 04:16 Nephrology ROS - Medication Medications: Active Medications Generic Name Dose Route Start Last Admin Trade Name Freq PRN Reason Stop Dose Admin Albuterol Sulfate 2.5 mg 11/27/20 12:15 11/30/20 08:30 Albuterol Sulfate 2.5 Mg/3 Ml Neb NEB 2.5 mg [id number] QUINN Administration Apixaban 5 mg 11/27/20 21:00 11/30/20 08:08 Apixaban 5 Mg Tab PO Not Given BID QUINN Nebivolol 5 mg 11/28/20 09:00 11/30/20 08:07 Nebivolol Hcl 5 Mg Tab PO 5 mg DAILY QUINN Administration Scopolamine 1.5 mg 11/28/20 16:45 11/28/20 17:12 Scopolamine 1.5 Mg/72 Hour Patch TD 1.5 mg Q3D QUINN Administration Sodium Chloride 10 ml 11/29/20 09:00 11/30/20 08:08 Flush - Normal Saline 10 Ml Syringe IVF 10 ml Q12HR QUINN Administration Sodium Chloride 1 gm 11/29/20 15:00 11/30/20 08:07 Sodium Chloride 1 Gm Tab PO 1 gm TID QUINN Administration - Exam General Appearance: awake alert Eye: anicteric sclera ENT: normocephalic atraumatic Neck: symmetric Respiratory: no wheezes, no rales, no ronchi, normal chest expansion Cardiovascular: RRR Gastrointestinal: soft, non-tender, non-distended Extremities: no cyanosis, no edema Skin - other findings: decreasd skinturgo Neurological: CN's grossly intact, no focal deficits Psychiatric - other findings: oriented toperson and place. some confusion noted Nephrology Results - Labs Result Diagrams: 12/01/20 04:16 12/01/20 04:16 Lab results: WBC 2.1 thou/uL (4.8-10.8) L 11/30/20 03:52 Hgb 11.9 g/dL (12.0-16.0) L 11/30/20 03:52 Hct 34.8 % (36.0-47.0) L 11/30/20 03:52 MCV 88.3 fL (78.0-98.0) 11/30/20 03:52 Plt Count 38 thou/uL (130-400) L 11/30/20 03:52 Neutrophils % 78.7 % (42.0-75.0) H 11/30/20 03:52 Band Neuts % (Manual) 10 % (5-11) 11/28/20 04:11 Sodium 128 mmol/L (136-145) L 11/30/20 03:52 Potassium 3.6 mmol/L (3.5-5.1) 11/30/20 03:52 Chloride 85 mmol/L (98-107) L 11/30/20 03:52 Carbon Dioxide 33 mmol/L (23-31) H 11/30/20 03:52 BUN 21 mg/dL (9.8-20.1) H 11/30/20 03:52 Creatinine 0.80 mg/dL (0.6-1.1) 11/30/20 03:52 Glucose 114 mg/dL (83-110) H 11/30/20 03:52 Calcium 8.1 mg/dL (7.8-10.44) 11/30/20 03:52 Total Bilirubin 0.8 mg/dL (0.2-1.2) 11/27/20 02:23 AST 28 U/L (5-34) 11/27/20 02:23 ALT 22 U/L (8-55) 11/27/20 02:23 Alkaline Phosphatase 95 U/L (40-110) 11/27/20 02:23 CK-MB (CK-2) 0.4 ng/mL (0-6.6) 11/27/20 02:23 Troponin I 0.035 ng/mL (< 0.028) H 11/27/20 02:23 B-Natriuretic Peptide 1094.4 pg/mL (0-100) H 11/27/20 02:23 Serum Total Protein 5.8 g/dL (5.8-8.1) 11/27/20 02:23 Albumin 3.6 g/dL (3.4-4.8) 11/27/20 02:23 Urine Ketones Negative mg/dL (Negative) 11/27/20 04:37 Urine Blood Negative (Negative) 11/27/20 04:37 Urine Nitrite Negative (Negative) 11/27/20 04:37 Ur Leukocyte Esterase Negative Uyen/uL (Negative) 11/27/20 04:37 Urine RBC 0-3 HPF (0-3) 11/27/20 04:37 Urine WBC 0-3 HPF (0-3) 11/27/20 04:37 Ur Squamous Epith Cells None Seen HPF (0-3) 11/27/20 04:37 Urine Bacteria None Seen HPF (None Seen) 11/27/20 04:37 Sodium 128 mmol/L (136-145) L 11/30/20 03:52 Potassium 3.6 mmol/L (3.5-5.1) 11/30/20 03:52 Chloride 85 mmol/L (98-107) L 11/30/20 03:52 Carbon Dioxide 33 mmol/L (23-31) H 11/30/20 03:52 Anion Gap 14 mmol/L (10-20) 11/30/20 03:52 BUN 21 mg/dL (9.8-20.1) H 11/30/20 03:52 Creatinine 0.80 mg/dL (0.6-1.1) 11/30/20 03:52 Glucose 114 mg/dL (83-110) H 11/30/20 03:52 Calcium 8.1 mg/dL (7.8-10.44) 11/30/20 03:52 Phosphorus 3.2 mg/dL (2.3-4.7) 11/30/20 03:52 Magnesium 1.0 mg/dL (1.6-2.6) L 11/29/20 03:06 Albumin 3.6 g/dL (3.4-4.8) 11/27/20 02:23 Nephrology AP PN - Plan ASSESSMENT: Hyponatremia: Seems to be due to volume depletion with appropriate antidiuretic hormone secretion and 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 Poor solute intake and hypokalemia are also contributory to the hyponatremia. Sodium levelis trending up. Volume depletion. Hypokalemia Pancytopenia related to chemotherapy. Protein-calorie malnutrition. PLAN Replete serum potassium with oral KCL Continue salt tablets. [place] protein and solute intake advised. Gentle crystalloid therapy contemplated.. Follow electrolytes
--- NOTE | 2020-11-30 10:36 | PDOC.HOSPP ---
- Subjective Encounter Date: 11/30/20 (f/u hyponatremia) Encounter Time: 10:34 Subjective: Pt was admitted for encephalopathy secondary to SIADS from stage 4 lung cancer. Pt denies any complaints. RN has noted pt removes NC and it needs to be replaced. Currently on 4L NC. Pt denies any n/v/abd pain or any other concerns. States she doesn't feel ready to go home, but can't describe why. - Objective Vital Signs & Weight: Vital Signs (12 hours) Temp Pulse Resp BP Pulse Ox 11/30/20 08:30 88 20 94 L 11/30/20 04:00 98.5 F 99 24 H 92/55 L 93 L 11/30/20 02:30 95 11/29/20 22:50 95 Weight Admit Weight 127 lb 6.835 oz Weight 123 lb 7.342 oz I&O: 11/29/20 11/30/20 12/01/20 06:59 06:59 06:59 Intake Total 475 440 Output Total 480 Balance -5 440 Result Diagrams: 11/30/20 03:52 11/30/20 03:52 EKG Reviewed by me: Yes (tele - sinus 90-100's) Hospitalist ROS - Medication Medications: Active Medications Generic Name Dose Route Start Last Admin Trade Name Freq PRN Reason Stop Dose Admin Albuterol Sulfate 2.5 mg 11/27/20 12:15 11/30/20 08:30 Albuterol Sulfate 2.5 Mg/3 Ml Neb NEB 2.5 mg [id number] QUINN Administration Apixaban 5 mg 11/27/20 21:00 11/30/20 08:08 Apixaban 5 Mg Tab PO Not Given BID QUINN Nebivolol 5 mg 11/28/20 09:00 11/30/20 08:07 Nebivolol Hcl 5 Mg Tab PO 5 mg DAILY QUINN Administration Scopolamine 1.5 mg 11/28/20 16:45 11/28/20 17:12 Scopolamine 1.5 Mg/72 Hour Patch TD 1.5 mg Q3D QUINN Administration Sodium Chloride 10 ml 11/29/20 09:00 11/30/20 08:08 Flush - Normal Saline 10 Ml Syringe IVF 10 ml Q12HR QUINN Administration Sodium Chloride 1 gm 11/29/20 15:00 11/30/20 08:07 Sodium Chloride 1 Gm Tab PO 1 gm TID QUINN Administration Hospitalist Exam Vitals: Vital Signs (12 hours) Temp Pulse Resp BP Pulse Ox 11/30/20 08:30 88 20 94 L 11/30/20 04:00 98.5 F 99 24 H 92/55 L 93 L 11/30/20 02:30 95 11/29/20 22:50 95 Weight Admit Weight 127 lb 6.835 oz Weight 123 lb 7.342 oz General Appearance: NAD Heart: RRR, no murmur Respiratory: no wheezes, no rales, no ronchi Gastrointestinal: soft, non-tender, non-distended, normal bowel sounds Extremities: no cyanosis, no clubbing, no edema Psychiatric - other findings: alert, responsive Hosp A/P (1) Hyponatremia Code(s): E87.1 - HYPO-OSMOLALITY AND HYPONATREMIA Status: Acute (2) Pancytopenia Code(s): D61.818 - OTHER PANCYTOPENIA Status: Acute (3) Hypomagnesemia Code(s): E83.42 - HYPOMAGNESEMIA Status: Acute (4) Hypophosphatemia Code(s): E83.39 - OTHER DISORDERS OF PHOSPHORUS METABOLISM Status: Acute (5) SIADH (syndrome of inappropriate ADH production) Status: Acute (6) Lung cancer Code(s): C34.90 - MALIGNANT NEOPLASM OF UNSP PART OF UNSP BRONCHUS OR LUNG Status: Chronic Qualifiers: Laterality: unspecified laterality (7) Pulmonary embolism Code(s): I26.99 - OTHER PULMONARY EMBOLISM WITHOUT ACUTE COR PULMONALE Status: Chronic (8) Respiratory failure with hypoxia Code(s): J96.91 - RESPIRATORY FAILURE, UNSPECIFIED WITH HYPOXIA Status: Acute - Plan Hyponatremia secondary to SIADH from stage 4 lung cancer - appreciate Nephro consult - improved Hypophos/mag - recheck today and electrolyte protocol Pancytopenia with worsening thrombocytopenia - hold eliquis for platelets less than 50 - Oncology consult Encephalopathy - monitor PT/OT consults Med rec performed - resume celexa DVT prophy - thrombocytopenia - monitor, eliquis hold parameters listed above gi prophy - not indicated reviewed the plan of care with the patient and RN, no questions or further needs at the end of evaluation.
[2020-11-30] MEDS ORDERED: Electrolyte Replacement Protocol 1 EACH FS SCH (10:45)
[2020-11-30 11:50] LABS: Magnesium 1.9 mg/dL (1.6-2.6); Phosphorus 3.4 mg/dL (2.3-4.7)
[2020-11-30] MEDS ORDERED: Magnesium 2 GM/50 ML 2 GM in Premix Bag 1 BAG IVPB SCH (13:30)
[2020-11-30] MEDS: Ondansetron ODT 8 MG TAB PO SCH ×2 (15:14→22:11)
--- NOTE | 2020-11-30 15:17 | EKG ---
Test Reason : FALLS Blood Pressure : / mmHG Vent. Rate : 101 BPM Atrial Rate : 101 BPM P-R Int : 150 ms QRS Dur : 082 ms QT Int : 316 ms P-R-T Axes : 058 124 026 degrees QTc Int : 409 ms Sinus tachycardia Right axis deviation Right ventricular hypertrophy Septal infarct , age undetermined Abnormal ECG Confirmed by ELISE MENDOZA M.D. ([id number]), research editor ROSY ABRAMS ([id number]) on 11/30/2020 3:16:51 PM Referred By: Confirmed By:ELISE MENDOZA M.D.
--- NOTE | 2020-11-30 17:34 | CON ---
DATE OF CONSULTATION: REASON FOR CONSULT: Lung cancer. HISTORY OF PRESENT ILLNESS: Ms. Burgess is a 70-year-old female, who was diagnosed with stage IV adenocarcinoma of the lung. She completed palliative radiation to her right pelvis for pain and then was started on treatment consisting of Keytruda, carboplatin, and Alimta. First dose was on November 19. Over the last several days, she began to have weakness, confusion, and multiple falls and presented to the emergency room. She was noted to have a sodium of 124, which is felt to be from SIADH due to her lung cancer. She also had some volume depletion. She has been treated over the course of the last several days and her sodium has improved to 128. She is, however, now pancytopenic. She was seen at bedside, states she is feeling better. She is oriented to person, place, and time. PAST MEDICAL HISTORY: 1. Stage IV lung cancer. 2. History DVT and PE. 3. Hypertension. 4. Atrial fibrillation. 5. COPD. 6. Anxiety. PAST SURGICAL HISTORY: 1. Hysterectomy. 2. MediPort placement. ALLERGIES: TO ZITHROMAX AND PENICILLIN. HOME MEDICATIONS: 1. Anoro. 2. Bystolic. 3. Celexa. 4. Folic acid. 5. Eliquis. 6. Florastor. 7. Proventil. FAMILY HISTORY: Noncontributory. SOCIAL HISTORY: , has 3 children. Former smoker with a 60 pack-year history. No alcohol or illicit drug use. REVIEW OF SYSTEMS: A 10-point review of systems is negative except for noted in HPI. PHYSICAL EXAMINATION: VITAL SIGNS: Temperature 99, pulse is 97, respiratory rate 20, blood pressure is 101/52. She is 94% on 4 L. GENERAL: This is a frail-appearing female, in no acute distress. HEENT: Normocephalic, atraumatic. Pupils are equal and reactive to light. NECK: Supple. CV: Regular rate and rhythm. LUNGS: Diminished throughout. ABDOMEN: Soft. Bowel sounds are positive. EXTREMITIES: No clubbing or cyanosis. SKIN: No rash. NEUROLOGIC: Nonfocal. PERTINENT LABORATORY DATA AND X-RAYS: WBCs are 2.1, hemoglobin 11.9, hematocrit 34.8, platelet count is 38,000. She has 78% neutrophils, 8% lymphocytes. Sodium 128, potassium 3.6, chloride 85, CO2 is 33, BUN is 21, creatinine 0.8, calcium 8.1. Bilirubin 0.8, AST is 28, ALT is 22, alkaline phosphatase is 95. BNP is 1094. Serum total protein is 5.8, albumin 3.6, globulin 2.2. Urine is negative. Influenza and COVID PCR negative. Brain CT showed no evidence of hemorrhage. ASSESSMENT: 1. Hyponatremia likely due to syndrome of inappropriate antidiuretic hormone. 2. Stage IV lung cancer with recent chemotherapy, immune checkpoint inhibitor. 3. Pancytopenia from chemotherapy. DISCUSSION: The case has been discussed with Dr. Flanagan. The patient has improved over the last several days; however, her counts have continued to drop. She is not neutropenic; however, her platelets remain low at 38,000. Would hold Eliquis until her count improves to 50,000. Her sodium has improved over the last several days and hopefully will continue to improve. She can be discharged once stable and we will update her daughter, Lakia. Thank you for the consult. Job ID: [id number] [facility]urtis
--- NOTE | 2020-12-01 02:33 | PDOC.EVN ---
Event Note - Event Note Event Note: Nursing called, reported daughter was concerned with patients increased AMS. Visited with Daughter at bedside. Says mother has been confused, but seems more confused this evening. A: Patient is alert, oriented x 3. No focal motor deficits. Making jokes. Reviewed patient history, labs with nurse and daughter. BG and VSS WNL. No new medications. Daughter satisfied with our discussion.
[2020-12-01 04:33] LABS: #Eosinphils 0.1 thou/uL (0.0-0.7); #Lymphocytes 0.3 thou/uL (1.20-3.40); #Monocytes 0.3 thou/uL (0.11-0.59); #Neutrophils 1.3 thou/uL (1.40-6.50); %Basophils 0.3 % (0.0-1.0); %Eosinophils 6.6 % (0.0-10.0); %Lymphocytes 16.5 % (21.0-51.0); %Monocytes 13.3 % (0.0-10.0); %Neutrophils 63.3 % (42.0-75.0); Mean Corpuscular HGB CONC 33.8 g/dL (32.0-36.0); Mean Corpuscular Volume 88.7 fL (78.0-98.0); Mean Platelet Volume 11.4 fL (7.4-10.4); Platelet Count 47 thou/uL (130-400); RBC Distribution Width 13.8 % (11.5-14.5); Red Blood Cell (RBC) Count 3.66 mill/uL (4.20-5.40)
[2020-12-01 05:13] LABS: Anion Gap 14 mmol/L (10-20); BUN (Urea Nitrogen) 35 mg/dL (9.8-20.1); Calc. Creatinine Clearance 56 mL/min (70-130); Calcium 8.4 mg/dL (7.8-10.44); Carbon Dioxide 31 mmol/L (23-31); Chloride 90 mmol/L (98-107); Glucose 112 mg/dL (83-110); Potassium 3.5 mmol/L (3.5-5.1); Sodium 131 mmol/L (136-145)
[2020-12-01] MEDS: Ondansetron ODT 8 MG TAB PO SCH ×3 (05:42→21:25)
--- NOTE | 2020-12-01 08:39 | PDOC.HOSPP ---
- Subjective Encounter Date: 12/01/20 (f/u encephalopathy) Encounter Time: 08:38 Subjective: pt noted to be more confused by daughter and nursing staff. she was awake and fidgety overnight, pulling off oxygen, wanting to get out of bed. She's also had poor PO intake during this hospitalization and prior. Tremors in arms are worse than normal - bryn states it is normally in her hands. In addition she had a fall prior to hospitalization. - Objective Vital Signs & Weight: Vital Signs (12 hours) Temp Pulse Resp BP Pulse Ox 12/01/20 07:48 97.6 F 97 16 90/50 L 93 L 12/01/20 07:33 96 20 97 12/01/20 04:40 91 L 12/01/20 04:00 98 F 99 22 H 98/53 L 90 L 11/30/20 23:18 94 L Weight Admit Weight 127 lb 6.835 oz Weight 124 lb 5.451 oz I&O: 11/30/20 12/01/20 12/02/20 06:59 06:59 06:59 Intake Total 440 Balance 440 Result Diagrams: 12/01/20 04:16 12/01/20 04:16 EKG Reviewed by me: Yes (tele - sinus 80-110's) Hospitalist ROS - Medication Medications: Active Medications Generic Name Dose Route Start Last Admin Trade Name Freq PRN Reason Stop Dose Admin Albuterol/Ipratropium 3 ml 11/30/20 13:00 12/01/20 07:33 Ipratropium/Albuterol Sulfate 3 Ml Neb NEB 3 ml [id number] QUINN Administration Apixaban 5 mg 11/30/20 09:00 11/30/20 22:12 Apixaban 5 Mg Tab PO Not Given BID QUINN Nebivolol 5 mg 11/30/20 09:00 11/30/20 11:40 Nebivolol Hcl 5 Mg Tab PO Not Given DAILY QUINN Ondansetron HCl 8 mg 11/30/20 14:00 12/01/20 05:42 Ondansetron Odt 8 Mg Tab PO Not Given Q8HR QUINN Sodium Chloride 10 ml 11/29/20 09:00 11/30/20 22:12 Flush - Normal Saline 10 Ml Syringe IVF 10 ml Q12HR QUINN Administration Sodium Chloride 1 gm 11/29/20 15:00 11/30/20 22:11 Sodium Chloride 1 Gm Tab PO 1 gm TID QUINN Administration Hospitalist Exam Vitals: Vital Signs (12 hours) Temp Pulse Resp BP Pulse Ox 12/01/20 07:48 97.6 F 97 16 90/50 L 93 L 12/01/20 07:33 96 20 97 12/01/20 04:40 91 L 12/01/20 04:00 98 F 99 22 H 98/53 L 90 L 11/30/20 23:18 94 L Weight Admit Weight 127 lb 6.835 oz Weight 124 lb 5.451 oz General Appearance: NAD Heart: RRR, no murmur Respiratory: CTAB, no wheezes, no rales, no ronchi Gastrointestinal: soft, non-tender, non-distended, normal bowel sounds Extremities: no cyanosis, no clubbing, no edema Musculoskeletal - other findings: bilateral UE tremors Psychiatric - other findings: oriented to person only Hosp A/P (1) Hyponatremia Code(s): E87.1 - HYPO-OSMOLALITY AND HYPONATREMIA Status: Acute (2) Pancytopenia Code(s): D61.818 - OTHER PANCYTOPENIA Status: Acute (3) Hypomagnesemia Code(s): E83.42 - HYPOMAGNESEMIA Status: Acute (4) Hypophosphatemia Code(s): E83.39 - OTHER DISORDERS OF PHOSPHORUS METABOLISM Status: Acute (5) SIADH (syndrome of inappropriate ADH production) Status: Acute (6) Lung cancer Code(s): C34.90 - MALIGNANT NEOPLASM OF UNSP PART OF UNSP BRONCHUS OR LUNG Status: Chronic Qualifiers: Laterality: unspecified laterality (7) Pulmonary embolism Code(s): I26.99 - OTHER PULMONARY EMBOLISM WITHOUT ACUTE COR PULMONALE Status: Chronic (8) Respiratory failure with hypoxia Code(s): J96.91 - RESPIRATORY FAILURE, UNSPECIFIED WITH HYPOXIA Status: Acute - Plan worsening encephalopathy in the context of thrombocytopenia, lung cancer undergoing treatment - stat CT - if no acute findings will plan for MRI - stat labs - lft's, ammonia, lactate - check UA - FOBT due to worsening anemia Hyponatremia secondary to SIADH from stage 4 lung cancer = continues to improve - appreciate Nephro consult Hypophos/mag - rechecked yesterday and normal Pancytopenia with slight improvement in platelets - hold eliquis for platelets less than 50 - appreciate Oncology consult poor sleep - start melatonin poor nutrition - employment director consult PT/OT consults Med rec performed - resumed celexa today DVT prophy - thrombocytopenia - monitor, eliquis hold parameters listed above gi prophy - not indicated reviewed the plan of care with the patient/daughter and RN, no questions or further needs at the end of evaluation.
[2020-12-01] MEDS ORDERED: Non-Formulary Item 1 EACH (Umeclidinium Brm/Vilanterol Tr [Anoro Ellipta] 62.5 MCG/25 MCG IH SCH (09:00)
[2020-12-01 09:01] LABS: Lactic Acid 1.3 mmol/L (0.5-2.2)
[2020-12-01 09:06] LABS: ALT (SGPT) 18 U/L (8-55); AST (SGOT) 26 U/L (5-34); Albumin 2.9 g/dL (3.4-4.8); Alkaline Phosphatase 60 U/L (40-110); Bilirubin, Direct 0.3 mg/dL (0.1-0.3); Bilirubin, Total 0.6 mg/dL (0.2-1.2); Protein, Total 4.9 g/dL (5.8-8.1)
[2020-12-01 09:19] LABS: Bilirubin Negative (Negative); Blood, Urine Negative (Negative); Clarity Clear (Clear); Glucose, Urine (Dipstick) Normal (Negative); Ketone, Urine Trace mg/dL (Negative); Leukocyte Negative Leu/uL (Negative); Nitrite Negative (Negative); Protein, Urine (Dipstick) 20 mg/dL (Neg-Trace); Specific Gravity, Urine 1.019 (1.002-1.036); Urobilinogen Normal mg/dL (Less than 2); pH, Urine 5.5 (5.0-9.0)
--- NOTE | 2020-12-01 11:25 | CT ---
CT OF BRAIN PERFORMED WITHOUT CONTRAST ENHANCEMENT: HISTORY: Altered mental status. COMPARISON: 11/27/2020 exam. FINDINGS: There is mild generalized ventricular and sulcal prominence. There are no signs of intracerebral or extraaxial fluid collections. Some decreased attenuation of the periventricular white matter consist ent with some chronic white matter change. Mastoid air cells are clear. A small air fluid level is seen in the left maxillary sinus. IMPRESSION: No acute intracranial abnormalities. POS: OFF
[2020-12-01] MEDS: Sodium Chloride 1 GM TAB PO SCH ×4 (12:40→21:25)
[2020-12-01] MEDS: Saccharomyces boulardii 250 MG CAP PO SCH ×2 (12:42→13:59)
[2020-12-01] MEDS: Citalopram 10 MG TAB PO SCH ×2 (12:42→13:59)
[2020-12-01] MEDS: Apixaban 5 MG TAB PO SCH ×2 (12:42→21:26)
[2020-12-01] MEDS: Nebivolol HCl 5 MG TAB PO SCH (12:42)
[2020-12-01] MEDS: Potassium Bicarbonate/Cit Ac 20 MEQ TAB PO SCH ×2 (12:43→15:00)
--- NOTE | 2020-12-01 13:25 | MRI ---
MRI OF BRAIN PERFORMED WITHOUT CONTRAST ENHANCEMENT: HISTORY: Altered mental status. History of lung cancer. COMPARISON: A 10/22/2020 MRI study. FINDINGS: Considerable motion artifact is present on this examination. There is some mild generalized ventricu lar and sulcal prominence which is fairly age appropriate. On the diffusion weighted sequence, I do not see any signs that would suggest any type of acute infarct. No mass effect demonstrated IMPRESSION: Considerable motion artifact on this exam. NO acute intracranial abnormalities. POS: OFF
[2020-12-01] MEDS ORDERED: Digoxin 0.5 MG/2 ML AMP SLOW IVP SCH ×2 (13:30→14:00)
--- NOTE | 2020-12-01 13:42 | PDOC.NEPPN ---
- Subjective Encounter Date: 12/01/20 Subjective: Seen in follow up for hyponatremia. Reported developed worsening confusion associated with visual hallucinations last night. Also flipped into A fib RVR associated with hypotension. Had CT head which was unremarkable. No new problem. Oral intake remained poor. - Objective Vital Signs & Weight: Vital Signs (12 hours) Temp Pulse Resp BP Pulse Ox 12/01/20 11:15 97.6 F 99 18 98/56 L 93 L 12/01/20 08:00 93 L 12/01/20 07:48 97.6 F 97 16 90/50 L 93 L 12/01/20 07:33 96 20 97 12/01/20 04:40 91 L 12/01/20 04:00 98 F 99 22 H 98/53 L 90 L Weight Admit Weight 127 lb 6.835 oz Weight 124 lb 5.451 oz I&O: 11/30/20 12/01/20 12/02/20 06:59 06:59 06:59 Intake Total 440 Balance 440 Result Diagrams: 12/01/20 04:16 12/01/20 04:16 Nephrology ROS - Medication Medications: Active Medications Generic Name Dose Route Start Last Admin Trade Name Freq PRN Reason Stop Dose Admin Albuterol/Ipratropium 3 ml 11/30/20 13:00 12/01/20 07:33 Ipratropium/Albuterol Sulfate 3 Ml Neb NEB 3 ml [id number] QUINN Administration Apixaban 5 mg 11/30/20 09:00 12/01/20 12:42 Apixaban 5 Mg Tab PO Not Given BID QUINN Citalopram Hydrobromide 10 mg 12/01/20 09:00 12/01/20 12:42 Citalopram 10 Mg Tab PO 10 mg DAILY QUINN Administration Nebivolol 5 mg 11/30/20 09:00 12/01/20 12:42 Nebivolol Hcl 5 Mg Tab PO Not Given DAILY QUINN Ondansetron HCl 8 mg 11/30/20 14:00 12/01/20 05:42 Ondansetron Odt 8 Mg Tab PO Not Given Q8HR QUINN Potassium Bicarbonate/Citric Acid 40 meq 12/01/20 08:15 12/01/20 12:43 Potassium Bicarbonate/Cit Ac 20 Meq Tab PO 12/01/20 14:16 Not Given Q6H QUINN Saccharomyces Boulardii 250 mg 12/01/20 09:00 12/01/20 12:42 Saccharomyces Boulardii 250 Mg Cap PO 250 mg DAILY QUINN Administration Sodium Chloride 10 ml 11/29/20 09:00 12/01/20 12:43 Flush - Normal Saline 10 Ml Syringe IVF 10 ml Q12HR QUINN Administration Sodium Chloride 1 gm 11/29/20 15:00 12/01/20 12:40 Sodium Chloride 1 Gm Tab PO 1 gm TID QUINN Administration - Exam General Appearance: awake alert Eye: anicteric sclera ENT: normocephalic atraumatic Neck: symmetric Respiratory - other findings: fair air entry Cardiovascular: irregular Gastrointestinal: soft, non-distended, normal bowel sounds Extremities: no edema Neurological: CN's grossly intact, no focal deficits Psychiatric - other findings: awake. oriented to person at least. Nephrology Results - Labs Result Diagrams: 12/01/20 04:16 12/01/20 04:16 Lab results: WBC 2.0 thou/uL (4.8-10.8) L 12/01/20 04:16 Hgb 11.0 g/dL (12.0-16.0) L 12/01/20 04:16 Hct 32.5 % (36.0-47.0) L 12/01/20 04:16 MCV 88.7 fL (78.0-98.0) 12/01/20 04:16 Plt Count 47 thou/uL (130-400) L 12/01/20 04:16 Neutrophils % 63.3 % (42.0-75.0) 12/01/20 04:16 Band Neuts % (Manual) 10 % (5-11) 11/28/20 04:11 Sodium 131 mmol/L (136-145) L 12/01/20 04:16 Potassium 3.5 mmol/L (3.5-5.1) 12/01/20 04:16 Chloride 90 mmol/L (98-107) L 12/01/20 04:16 Carbon Dioxide 31 mmol/L (23-31) 12/01/20 04:16 BUN 35 mg/dL (9.8-20.1) H 12/01/20 04:16 Creatinine 0.81 mg/dL (0.6-1.1) 12/01/20 04:16 Glucose 112 mg/dL (83-110) H 12/01/20 04:16 Lactic Acid 1.3 mmol/L (0.5-2.2) 12/01/20 08:38 Calcium 8.4 mg/dL (7.8-10.44) 12/01/20 04:16 Total Bilirubin 0.6 mg/dL (0.2-1.2) 12/01/20 08:38 AST 26 U/L (5-34) 12/01/20 08:38 ALT 18 U/L (8-55) 12/01/20 08:38 Alkaline Phosphatase 60 U/L (40-110) 12/01/20 08:38 Ammonia 21 umol/L (18-72) 12/01/20 08:38 CK-MB (CK-2) 0.4 ng/mL (0-6.6) 11/27/20 02:23 Troponin I 0.035 ng/mL (< 0.028) H 11/27/20 02:23 B-Natriuretic Peptide 1094.4 pg/mL (0-100) H 11/27/20 02:23 Serum Total Protein 4.9 g/dL (5.8-8.1) L 12/01/20 08:38 Albumin 2.9 g/dL (3.4-4.8) L 12/01/20 08:38 Urine Ketones Trace mg/dL (Negative) A 12/01/20 09:04 Urine Blood Negative (Negative) 12/01/20 09:04 Urine Nitrite Negative (Negative) 12/01/20 09:04 Ur Leukocyte Esterase Negative Uyen/uL (Negative) 12/01/20 09:04 Urine RBC 0-3 HPF (0-3) 11/27/20 04:37 Urine WBC 0-3 HPF (0-3) 11/27/20 04:37 Ur Squamous Epith Cells None Seen HPF (0-3) 11/27/20 04:37 Urine Bacteria None Seen HPF (None Seen) 11/27/20 04:37 Sodium 131 mmol/L (136-145) L 12/01/20 04:16 Potassium 3.5 mmol/L (3.5-5.1) 12/01/20 04:16 Chloride 90 mmol/L (98-107) L 12/01/20 04:16 Carbon Dioxide 31 mmol/L (23-31) 12/01/20 04:16 Anion Gap 14 mmol/L (10-20) 12/01/20 04:16 BUN 35 mg/dL (9.8-20.1) H 12/01/20 04:16 Creatinine 0.81 mg/dL (0.6-1.1) 12/01/20 04:16 Glucose 112 mg/dL (83-110) H 12/01/20 04:16 Calcium 8.4 mg/dL (7.8-10.44) 12/01/20 04:16 Phosphorus 3.4 mg/dL (2.3-4.7) 11/30/20 10:46 Magnesium 1.9 mg/dL (1.6-2.6) 11/30/20 10:46 Albumin 2.9 g/dL (3.4-4.8) L 12/01/20 08:38 Nephrology AP PN - Plan ASSESSMENT: Hyponatremia: Seems to be due to volume depletion with appropriate antidiuretic hormone secretion and 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 Poor solute intake and hypokalemia are also contributory to the hyponatremia. Sodium is still trending up. Volume depletion. Hypokalemia Encephalopathy: Etiology not very clear. May be related to medication with possible contribution from electrolyte derrangement and or hypoperfusion. Patient was on scopolamine patch. Acute CVA ruled out. Pancytopenia related to chemotherapy. Protein-calorie malnutrition. PLAN Replete serum potassium with oral KCL Continue salt tablets. Agree with crystlloid to improve BP Will also give 50 grams of albumin. Follow electrolytes and adjust treatment as needed
[2020-12-01] MEDS ORDERED: Diltiazem HCl 125 MG, Admixture Fee 1 EACH in Sodium Chloride 0.9% 100 ML IVPB SCH (13:45)
[2020-12-01] MEDS ORDERED: Sodium Chloride 0.9% 500 ML IV SCH ×2 (14:00→14:56)
[2020-12-01] MEDS ORDERED: Digoxin 0.5 MG/2 ML AMP ONE (14:01)
--- NOTE | 2020-12-01 15:03 | PDOC.BPN ---
- Brief Progress Note Encounter Date: 12/01/20 Encounter Time: 14:56 Called to room for a fib with RVR - started close to 13:00 today - arrived at the room at approximately 13:20 and remained in the room or coordinating care through 14:20 - multiple attempts to obtain bp's - these ranged from 90's - 120 systolic, taken with machine when functioning or manually - HR 130-150's and confirmed with ecg a fib with rvr Meds ordered - digoxin 0.25 mg x 2 cardizem gtt 5 mg/hr Cardiology consult requested - d/w HALLE Mixon Echo ordered IV fluid - start with NS 500 ml - started at 75 ml Pt noted to be coughing with swallowing earlier - at the time that the a fib occurred. Lungs - good air movement Heart - tachy - no audible murmurs abd - soft palpable radial pulse Pt moving wanting to get out of the bed, confused with mumbled speech Labs - reviewed from earier today CT scan brain neg MRI brain - artifact from motion Last bp 87/56 - increased fluids to 125 ml/hr and lowered cardizem gtt to 2.5 mg/hr Currently HR in the 110's-120's Imp - new onset A Fib with RVR in the context of other dx earlier today - continue plan as above. If she remains hypotensive with IVF, will consider amiodarone for rate control Encephalopathy - worsening as noted in today's progress note - check ABG. Hyponatremia - likely multifactorial - d/w Dr. Angeles and he will recheck labs this evening THrombocytopenia - eliquis has been held due to this. D/w W[employer] MANA[employer] Shelly Nunez and can resume eliquis with monitoring for bleeding. If pt is unable to take PO - speech consult requested - will use heparin gtt so that we can closely monitor for bleeding and have the ability to turn it off immediately. Reviewed plan of care throughout with the patient's daughter who demonstrates understanding. Discussed that pt is stable, there is no current emergency and we are thankful for that, and we will continue adjusting the plan to address the most significant threat to the patient's health. There were no questions or further needs at end of eval Total time coordinating critical care was 60 minutes 18:00 - re-evaluated patient and updated family ( and daughter). HR 100- 110's, bp 90's systolic. The normal saline infusion is complete and albumin is about to be given. Discussed request for yves hu. Family asking about me ds to help with sleep - discussed that there are none that do not have side effects - I'm concerned about side effects on the respiratory status (benzos), on the heart (atypical antipsychotics) or worsening of her mental status. We discussed recommendation for no anti-coagulation by Cardiology until platelets are greater than 50,000, due to increased risk of bleeding. I reviewed the labs/ct scan/abg and MRI report. At this time - yves, Neurology consult for recommendations on managing encephalopathy, monitoring of sodium levels by Nephrology/Dr. Angeles, evaluation by Speech Therapy tomorrow for concern of aspiration and NPO status until then. We discussed the complicated nature of patient's health condition currently. There were no questions or further needs at end of evaluation. Time spent with patient/family 20 minutes.
[2020-12-01 16:07] LABS: Actual Bicarbonate (HCO3a) 32.6 mEq/L (22-28); Base Excess (BEa) 8.2 mEq/L (-2.0 to +3.0); CO2 Tension 44.6 mmHg (35.0-45.0); Calcium, Ionized (arterial) 1.15 mmol/L (1.12-1.30); Carboxyhemoglobin (COHb) 0.1 gm% (0.0-3.0); Hemoglobin (Hb) 11.4 g/dL (12.0-16.0); O2 Tension (PaO2), arterial 65.4 mmHg (> 70.0); Potassium - ABG Lab 3.68 mmol/L (3.70-5.30); pH, Arterial 7.48 (7.35-7.45)
[2020-12-01 16:10] LABS: Puncture Site LRA
[2020-12-01] MEDS ORDERED: Albumin 25% 25 GM/100 ML BOT IVPB SCH (16:15)
--- NOTE | 2020-12-01 16:17 | CON ---
DATE OF CONSULTATION: 12/01/2020 REASON FOR CONSULTATION: Atrial fibrillation with RVR. CONSULTING PHYSICIAN: Dr. Osman, Cardiology. HISTORY OF PRESENT ILLNESS: Ms. Burgess is a 70-year-old female with a past medical history of stage IV adenocarcinoma of the lung. She returned to the hospital with weakness, confusion, multiple falls, and mental status changes. She was previously noted to have a sodium of 124 and SIADH related to her lung cancer. She has a volume depletion. She has been admitted to the telemetry for conservative management. According to the daughter, she had a lot of delirium last night. The nurses say she has done fairly well today. She acutely converted to atrial fibrillation with RVR with rates in the 140s at approximately 1400 hours. The patient is not a good historian. She is not really able to tell me how she feels. Her blood pressure is low, but her systolic has consistently been in the 90s since admission. Her highest systolic blood pressure recorded was 115. Her O2 sats run in the low 90s. Currently, at this time, she is in atrial fibrillation with heart rates in the 130s. PAST MEDICAL HISTORY: 1. Stage IV adenocarcinoma of the lung. 2. SIADH . 3. History of DVT and PE. 4. Hypertension. 5. Questionable history of atrial fibrillation in the past. 6. COPD. 7. Anxiety. PAST SURGICAL HISTORY: Hysterectomy and MediPort placement. ALLERGIES: ZITHROMAX AND PENICILLIN. FAMILY HISTORY: Noncontributory. SOCIAL HISTORY: Noncontributory. REVIEW OF SYSTEMS: Unable to obtain due to mental status changes. PHYSICAL EXAMINATION: GENERAL: This is a frail, elderly female, who is in mild distress. She has rigors. She is not able to speak much. She is cachectic. VITAL SIGNS: Temperature is afebrile, respiratory rate is 18 to 20, pulse is in the 130s, blood pressure is 106/54. Weight is 124 pounds. HEENT: Head is atraumatic, normocephalic. Mucous membranes are somewhat dry. NECK: Supple. CHEST: Reveals no wheezing or rhonchi with decreased breath sounds. CARDIOVASCULAR: Irregular rate and rhythm. ABDOMEN: Soft, nontender. EXTREMITIES: No clubbing, cyanosis, or edema. PSYCHIATRIC: The patient appears somewhat anxious. LABORATORY DATA: CBC showed white blood cell count of 2, hemoglobin 11, hematocrit 32.5, and platelet count of 47,000 today. BMP shows sodium 131, potassium 3.5, BUN 35, creatinine 0.81, glucose 112. BNP done upon admission was 1094. The patient is COVID negative. UA was normal. Echocardiogram; the patient had an echocardiogram done last month that showed normal EF and severe TR and severe pulmonary hypertension with SPAP of 105 mmHg. IMPRESSION: 1. Paroxysmal atrial fibrillation with rapid ventricular response. 2. Stage IV lung cancer. 3. 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 4. History of deep venous thrombosis, pulmonary embolism. 5. Questionable history of previous atrial fibrillation. At this time, digoxin is being given IV to the patient. We will repeat this dose one more time. Then we will also start her on a Cardizem drip. We will see if her blood pressure tolerates this. If it does not, then we can switch to amiodarone drip. Her daughter is at bedside. I do not think it is worth repeating an echocardiogram at this point. I did explain to the daughter that there is a risk of CVA with atrial fibrillation. She says the patient's last dose of Eliquis was two days ago. I did explain that it has 72-hour half-life, and we would need to discuss with Hematology the risk and benefit of resuming given her low platelet count. At this time, she is no more hypertensive than her previous blood pressures recorded. Her respiratory status is stable. We will continue to monitor closely. Job ID: [id number]
--- NOTE | 2020-12-01 17:05 | CON ---
DATE OF CONSULTATION: REASON FOR CONSULTATION: Atrial fibrillation. PRIMARY SENIOR CLINICIAN: None. Please see full consultation by Zahraa Mixon for details. HISTORY OF PRESENT ILLNESS: Ms. Burgess is a 70-year-old woman with multiple medical problems, who recently presented with altered mental status. During her hospitalization, she developed atrial fibrillation with RVR. She is now rate controlled. Blood pressure appears marginally in the 90s. After talking to the , it appears her blood pressures have been marginal in the low 100s. Heart rate is currently in the 90s to 100s. PHYSICAL EXAMINATION: VITAL SIGNS: Blood pressure 98/56, pulse 99, temperature 97.6. LUNGS: Rhonchi and rales bilaterally. HEART: Irregularly irregular. ABDOMEN: Soft, nontender, nondistended. EXTREMITIES: No edema. PERTINENT LABORATORY DATA: white blood cell count 2.0. IMPRESSION: 1. Atrial fibrillation. 2. SIADH. 3. Metastatic lung cancer. 4. COPD. 5. Mental status changes. RECOMMENDATIONS: It appears Ms. Burgess has developed atrial fibrillation in direct response to underlying medical condition. She came in with altered mental status, SIADH in addition to metastatic lung cancer and COPD. At this point, recommend continued rate control. I do not feel the need to proceed with urgent cardioversion. Her mental status has been unchanged since admission and her blood pressure is near her baseline. We will continue rate control. Given her platelet count, would not recommend anticoagulation. Job ID: [id number]
[2020-12-01] MEDS: Dextrose 5 % And 0.9 % NaCl 1,000 ML IV SCH (18:26)
[2020-12-01 20:40] LABS: Anion Gap 13 mmol/L (10-20); BUN (Urea Nitrogen) 36 mg/dL (9.8-20.1); Calc. Creatinine Clearance 55 mL/min (70-130); Calcium 8.3 mg/dL (7.8-10.44); Carbon Dioxide 32 mmol/L (23-31); Chloride 95 mmol/L (98-107); Glucose 114 mg/dL (83-110); Potassium 3.6 mmol/L (3.5-5.1); Sodium 136 mmol/L (136-145)
[2020-12-01] MEDS: Melatonin 3 MG TAB PO PRN (21:25)
[2020-12-02 04:44] LABS: Band 8 % (5-11); Eosinophils 6 % (0-10); Hemoglobin 9.4 g/dL (12.0-16.0); Lymphocytes 24 % (21-51); MDiff Complete? YES; Mean Corpuscular HGB CONC 34.5 g/dL (32.0-36.0); Mean Corpuscular Hemoglobin 30.7 pg (27.0-31.0); Mean Corpuscular Volume 89.1 fL (78.0-98.0); Mean Platelet Volume 9.4 fL (7.4-10.4); Monocytes 10 % (0-10); Neutrophil 50 % (42-75); Platelet Count 60 thou/uL (130-400); Platelet Morphology Comment Appears Decreased; RBC Distribution Width 14.1 % (11.5-14.5); Reactive Lymphocytes 2 % (0-10); Red Blood Cell (RBC) Count 3.05 mill/uL (4.20-5.40); White Blood Cell (WBC) Count 1.4 thou/uL (4.8-10.8)
[2020-12-02 04:49] LABS: Anion Gap 13 mmol/L (10-20); BUN (Urea Nitrogen) 36 mg/dL (9.8-20.1); Calc. Creatinine Clearance 52 mL/min (70-130); Calcium 8.5 mg/dL (7.8-10.44); Carbon Dioxide 31 mmol/L (23-31); Chloride 97 mmol/L (98-107); Glucose 132 mg/dL (83-110); Potassium 3.6 mmol/L (3.5-5.1); Sodium 137 mmol/L (136-145)
[2020-12-02] MEDS: Ondansetron ODT 8 MG TAB PO SCH ×3 (05:34→21:41)
--- NOTE | 2020-12-02 08:31 | PDOC.MOPN ---
Interval History: Pt lying in bed this morning, speaks very softly due to weakness and difficult to hear. Her was at the bedside. She is able to comprehend and follow directions and her says this is a change from yesterday. says she was very uncomfortable yesterday, moving frequently throughout the bed. She is not doing that this morning. She has no specific complaints this morning. - Vital Signs Vital Signs: Vital Signs (12 hours) Temp Pulse Resp BP Pulse Ox 12/02/20 08:08 83 16 95 12/02/20 07:20 97.9 F 85 18 128/74 93 L 12/02/20 03:47 98.4 F 98 16 121/81 90 L 12/02/20 01:05 97 Weight Admit Weight 127 lb 6.835 oz Weight 120 lb 14.4 oz - Physical Exam General: Alert, Cooperative, Mild distress Lungs: Other (non-labored) Neurological: Cranial nerves 3-12 NL Psych/Mental Status: Mood NL - Labs Result Diagrams: 12/02/20 04:04 12/02/20 04:04 Lab results: Laboratory Results - last 24 hr 12/02/20 04:04: WBC 1.4 L, RBC 3.05 L, Hgb 9.4 L, Hct 27.2 L, MCV 89.1, MCH 30.7, MCHC 34.5, RDW 14.1, Plt Count 60 L, MPV 9.4, Neutrophils % (Manual) 50, Band Neuts % (Manual) 8, Lymphocytes % (Manual) 24, Reactive Lymphs % 2, Monocytes % (Manual) 10, Eosinophils % (Manual) 6, Plt Morphology Comment Appears Decreased L 12/02/20 04:04: Sodium 137, Potassium 3.6, Chloride 97 L, Carbon Dioxide 31, Anion Gap 13, BUN 36 H, Creatinine 0.86, Estimated GFR (MDRD) 65, Glucose 132 H, Calcium 8.5 12/01/20 20:13: Sodium 136, Potassium 3.6, Chloride 95 L, Carbon Dioxide 32 H, Anion Gap 13, BUN 36 H, Creatinine 0.83, Estimated GFR (MDRD) 68, Glucose 114 H, Calcium 8.3 12/01/20 16:00: Specimen Type ARTERIAL, Puncture Site LRA, Bicarbonate Actual 32.6 H, ABG pH 7.48 H, ABG pCO2 44.6, ABG pO2 65.4, ABG O2 Sat (Measured) 92.8 L, ABG O2 Content 14.8 L, ABG Base Excess 8.2 H, ABG Hematocrit 34.0 L, ABG Hemoglobin 11.4 L, ABG Oxyhemoglobin 92.4 L, ABG Carboxyhemoglobin 0.1, ABG Methemoglobin 0.30, ABG Deoxyhemoglobin 7.2 H, Basim Test POSITIVE, A-a O2 Gradient 135.530 H, Sodium 131 L, Potassium 3.68 L, Chloride 94 L, Ionized Calcium 1.15, Mode of Support 4L NC, Inspired O2 36 12/01/20 09:04: Urine Color Yellow, Urine Clarity Clear, Urine pH 5.5, Ur Specific [place] 1.019, Urine Protein 20, Urine Glucose (UA) Normal, Urine Ketones Trace A, Urine Blood Negative, Urine Nitrite Negative, Urine Bilirubin Negative, Urine Urobilinogen Normal, Ur Leukocyte Esterase Negative 12/01/20 08:38: Total Bilirubin 0.6, Direct Bilirubin 0.3, AST 26, ALT 18, Alkaline Phosphatase 60, Serum Total Protein 4.9 L, Albumin 2.9 L 12/01/20 08:38: Lactic Acid 1.3 12/01/20 08:38: Ammonia 21 A/P - Problem (1) Hyponatremia Current Visit: Yes Code(s): E87.1 - HYPO-OSMOLALITY AND HYPONATREMIA Status: Acute (2) Metabolic encephalopathy Current Visit: Yes Code(s): G93.41 - METABOLIC ENCEPHALOPATHY Status: Acute (3) Pancytopenia Current Visit: Yes Code(s): D61.818 - OTHER PANCYTOPENIA Status: Acute (4) SIADH (syndrome of inappropriate ADH production) Current Visit: Yes Status: Acute (5) Lung cancer Current Visit: No Code(s): C34.90 - MALIGNANT NEOPLASM OF UNSP PART OF UNSP BRONCHUS OR LUNG Status: Chronic Qualifiers: Laterality: unspecified laterality - Plan Plan: Mental status slightly improved. Sodium now normal. cont nephro recs for electrolyte abnormalities, SIADH restart Eliquis 2.5 mg BID once platelets > 50 (PE, Afib) swallowing eval today will delay next chemo and dose-reduce as long as she continues to improve and can tolerate anymore treatment
--- NOTE | 2020-12-02 11:34 | PDOC.NEPPN ---
- Subjective Encounter Date: 12/02/20 Subjective: Seen and examined. More oriented but still with some involuntary movement of the hands, mumbling and visual hallucinations. Remained afebrile. NPO due to dysphagia - Objective Vital Signs & Weight: Vital Signs (12 hours) Temp Pulse Resp BP Pulse Ox 12/02/20 08:08 83 16 95 12/02/20 07:20 97.9 F 85 18 128/74 93 L 12/02/20 03:47 98.4 F 98 16 121/81 90 L 12/02/20 01:05 97 Weight Admit Weight 127 lb 6.835 oz Weight 120 lb 14.4 oz I&O: 12/01/20 12/02/20 12/03/20 06:59 06:59 06:59 Intake Total 840 Balance 840 Result Diagrams: 12/02/20 04:04 12/02/20 04:04 Additional Labs: Accuchecks 11/30/20 22:48 POC Glucose 134 H Nephrology ROS - Medication Medications: Active Medications Generic Name Dose Route Start Last Admin Trade Name Freq PRN Reason Stop Dose Admin Albuterol/Ipratropium 3 ml 11/30/20 13:00 12/02/20 08:08 Ipratropium/Albuterol Sulfate 3 Ml Neb NEB 3 ml [id number] QUINN Administration Apixaban 5 mg 11/30/20 09:00 12/01/20 21:26 Apixaban 5 Mg Tab PO Not Given BID QUINN Citalopram Hydrobromide 10 mg 12/01/20 09:00 12/01/20 13:59 Citalopram 10 Mg Tab PO Not Given DAILY QUINN Diltiazem HCl 125 mg/ 125 mls @ 5 mls/hr 12/01/20 13:45 12/01/20 14:04 Miscellaneous Medication 1 IVPB 125 mls each/ Sodium Chloride INF QUINN Administration Protocol Dextrose/Sodium Chloride 1,000 mls @ 50 mls/hr 12/01/20 17:15 12/01/20 18:26 D5 0.9% Ns IV 1,000 mls .Q20H QUINN Administration Melatonin 3 mg 12/01/20 08:37 12/01/20 21:25 Melatonin 3 Mg Tab PO 3 mg HS PRN Administration Insomnia Nebivolol 5 mg 11/30/20 09:00 12/01/20 12:42 Nebivolol Hcl 5 Mg Tab PO Not Given DAILY QUINN Ondansetron HCl 8 mg 11/30/20 14:00 12/02/20 05:34 Ondansetron Odt 8 Mg Tab PO Not Given Q8HR QUINN Saccharomyces Boulardii 250 mg 12/01/20 09:00 12/01/20 13:59 Saccharomyces Boulardii 250 Mg Cap PO Not Given DAILY QUINN Sodium Chloride 10 ml 11/29/20 09:00 12/01/20 21:31 Flush - Normal Saline 10 Ml Syringe IVF Not Given Q12HR QUINN - Exam General Appearance: awake alert Eye: anicteric sclera ENT: normocephalic atraumatic, dry oral mucosa Neck: supple, symmetric, no JVD Respiratory: no wheezes, no ronchi Respiratory - other findings: fair air entry bilaterallt with few transmitted sound Cardiovascular: RRR Gastrointestinal: soft Extremities: no cyanosis, no edema Neurological: CN's grossly intact, no focal deficits Neurological - other findings: involuntary movement of the limbs and mouth noted Musculoskeletal: generalized weakness PSYCH: oriented to person, oriented to place Nephrology Results - Labs Result Diagrams: 12/02/20 04:04 12/02/20 04:04 Lab results: WBC 1.4 thou/uL (4.8-10.8) L 12/02/20 04:04 Hgb 9.4 g/dL (12.0-16.0) L 12/02/20 04:04 Hct 27.2 % (36.0-47.0) L 12/02/20 04:04 MCV 89.1 fL (78.0-98.0) 12/02/20 04:04 Plt Count 60 thou/uL (130-400) L 12/02/20 04:04 Neutrophils % 63.3 % (42.0-75.0) 12/01/20 04:16 Band Neuts % (Manual) 8 % (5-11) 12/02/20 04:04 ABG pH 7.48 (7.35-7.45) H 12/01/20 16:00 ABG pCO2 44.6 mmHg (35.0-45.0) 12/01/20 16:00 ABG pO2 65.4 mmHg (> 70.0) 12/01/20 16:00 Sodium 137 mmol/L (136-145) 12/02/20 04:04 Potassium 3.6 mmol/L (3.5-5.1) 12/02/20 04:04 Chloride 97 mmol/L (98-107) L 12/02/20 04:04 Carbon Dioxide 31 mmol/L (23-31) 12/02/20 04:04 BUN 36 mg/dL (9.8-20.1) H 12/02/20 04:04 Creatinine 0.86 mg/dL (0.6-1.1) 12/02/20 04:04 Glucose 132 mg/dL (83-110) H 12/02/20 04:04 Lactic Acid 1.3 mmol/L (0.5-2.2) 12/01/20 08:38 Calcium 8.5 mg/dL (7.8-10.44) 12/02/20 04:04 Total Bilirubin 0.6 mg/dL (0.2-1.2) 12/01/20 08:38 AST 26 U/L (5-34) 12/01/20 08:38 ALT 18 U/L (8-55) 12/01/20 08:38 Alkaline Phosphatase 60 U/L (40-110) 12/01/20 08:38 Ammonia 21 umol/L (18-72) 12/01/20 08:38 CK-MB (CK-2) 0.4 ng/mL (0-6.6) 11/27/20 02:23 Troponin I 0.035 ng/mL (< 0.028) H 11/27/20 02:23 B-Natriuretic Peptide 1094.4 pg/mL (0-100) H 11/27/20 02:23 Serum Total Protein 4.9 g/dL (5.8-8.1) L 12/01/20 08:38 Albumin 2.9 g/dL (3.4-4.8) L 12/01/20 08:38 Urine Ketones Trace mg/dL (Negative) A 12/01/20 09:04 Urine Blood Negative (Negative) 12/01/20 09:04 Urine Nitrite Negative (Negative) 12/01/20 09:04 Ur Leukocyte Esterase Negative Uyen/uL (Negative) 12/01/20 09:04 Urine RBC 0-3 HPF (0-3) 11/27/20 04:37 Urine WBC 0-3 HPF (0-3) 11/27/20 04:37 Ur Squamous Epith Cells None Seen HPF (0-3) 11/27/20 04:37 Urine Bacteria None Seen HPF (None Seen) 11/27/20 04:37 Sodium 137 mmol/L (136-145) 12/02/20 04:04 Potassium 3.6 mmol/L (3.5-5.1) 12/02/20 04:04 Chloride 97 mmol/L (98-107) L 12/02/20 04:04 Carbon Dioxide 31 mmol/L (23-31) 12/02/20 04:04 Anion Gap 13 mmol/L (10-20) 12/02/20 04:04 BUN 36 mg/dL (9.8-20.1) H 12/02/20 04:04 Creatinine 0.86 mg/dL (0.6-1.1) 12/02/20 04:04 Glucose 132 mg/dL (83-110) H 12/02/20 04:04 Calcium 8.5 mg/dL (7.8-10.44) 12/02/20 04:04 Phosphorus 3.4 mg/dL (2.3-4.7) 11/30/20 10:46 Magnesium 1.9 mg/dL (1.6-2.6) 11/30/20 10:46 Albumin 2.9 g/dL (3.4-4.8) L 12/01/20 08:38 Nephrology AP PN - Plan ASSESSMENT: Hyponatremia: Seems to be due to volume depletion with appropriate antidiuretic hormone secretion and 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 Poor solute intake and hypokalemia are also contributory to the hyponatremia. Resolved with crystalloid, albumin and salt tablet. Volume depletion. Improved. Hypokalemia: Repleted Acute Encephalopathy: Most likely due to scopolamine with possible contribution from electrolyte derrangement and or hypoperfusion. Patient was on scopolamine patch. Acute CVA ruled out. Pancytopenia related to chemotherapy. Protein-calorie malnutrition. Dysphagia paroxysmal atrial fib. PLAN Continue D5/NS for now Will recommend speech therapy to facilitate early return to oral intake Discontinue salt tablets. Follow electrolytes and adjust treatment as needed
[2020-12-02] MEDS: Sodium Chloride 1 GM TAB PO SCH (11:39)
--- NOTE | 2020-12-02 13:03 | PDOC.HOSPP ---
- Subjective Encounter Date: 12/02/20 Encounter Time: 13:02 Subjective: unintelligable speech - Objective Vital Signs & Weight: Vital Signs (12 hours) Temp Pulse Resp BP Pulse Ox 12/02/20 11:42 98.2 F 86 15 129/82 93 L 12/02/20 10:30 93 L 12/02/20 08:08 83 16 95 12/02/20 07:20 97.9 F 85 18 128/74 93 L 12/02/20 03:47 98.4 F 98 16 121/81 90 L 12/02/20 01:05 97 Weight Admit Weight 127 lb 6.835 oz Weight 120 lb 14.4 oz I&O: 12/01/20 12/02/20 12/03/20 06:59 06:59 06:59 Intake Total 840 Balance 840 Result Diagrams: 12/02/20 04:04 12/02/20 04:04 Additional Labs: Accuchecks 11/30/20 22:48 POC Glucose 134 H Hospitalist ROS - Medication Medications: Active Medications Generic Name Dose Route Start Last Admin Trade Name Freq PRN Reason Stop Dose Admin Albuterol/Ipratropium 3 ml 11/30/20 13:00 12/02/20 08:08 Ipratropium/Albuterol Sulfate 3 Ml Neb NEB 3 ml [id number] QUINN Administration Apixaban 5 mg 11/30/20 09:00 12/01/20 21:26 Apixaban 5 Mg Tab PO Not Given BID QUINN Citalopram Hydrobromide 10 mg 12/01/20 09:00 12/01/20 13:59 Citalopram 10 Mg Tab PO Not Given DAILY QUINN Diltiazem HCl 125 mg/ 125 mls @ 5 mls/hr 12/01/20 13:45 12/01/20 14:04 Miscellaneous Medication 1 IVPB 125 mls each/ Sodium Chloride INF QUINN Administration Protocol Dextrose/Sodium Chloride 1,000 mls @ 50 mls/hr 12/01/20 17:15 12/01/20 18:26 D5 0.9% Ns IV 1,000 mls .Q20H QUINN Administration Melatonin 3 mg 12/01/20 08:37 12/01/20 21:25 Melatonin 3 Mg Tab PO 3 mg HS PRN Administration Insomnia Nebivolol 5 mg 11/30/20 09:00 02/21/21 12:42 Nebivolol Hcl 5 Mg Tab PO Not Given DAILY [facility] Ondansetron HCl 8 mg 11/30/20 14:00 12/02/20 05:34 Ondansetron Odt 8 Mg Tab PO Not Given Q8HR [facility] Saccharomyces Boulardii 250 mg 12/01/20 09:00 12/01/20 13:59 Saccharomyces Boulardii 250 Mg Cap PO Not Given DAILY [facility] Sodium Chloride 10 ml 11/29/20 09:00 12/02/20 12:18 Flush - Normal Saline 10 Ml Syringe IVF Not Given Q12HR [facility] Hospitalist Exam Vitals: Vital Signs (12 hours) Temp Pulse Resp BP Pulse Ox 12/02/20 11:42 98.2 F 86 15 129/82 93 L 12/02/20 10:30 93 L 12/02/20 08:08 83 16 95 12/02/20 07:20 97.9 F 85 18 128/74 93 L 12/02/20 03:47 98.4 F 98 16 121/81 90 L 12/02/20 01:05 97 Weight Admit Weight 127 lb 6.835 oz Weight 120 lb 14.4 oz Neck: no JVD Heart: no murmur, irregular Respiratory: CTAB Gastrointestinal: soft, normal bowel sounds Extremities: no edema Hosp A/P (1) Atrial fibrillation with rapid ventricular response Code(s): I48.91 - UNSPECIFIED ATRIAL FIBRILLATION Status: Acute (2) COPD (chronic obstructive pulmonary disease) Status: Acute (3) Hypomagnesemia Code(s): E83.42 - HYPOMAGNESEMIA Status: Acute (4) Hyponatremia Code(s): E87.1 - HYPO-OSMOLALITY AND HYPONATREMIA Status: Acute (5) Hypophosphatemia Code(s): E83.39 - OTHER DISORDERS OF PHOSPHORUS METABOLISM Status: Acute (6) Lung cancer Code(s): C34.90 - MALIGNANT NEOPLASM OF UNSP PART OF UNSP BRONCHUS OR LUNG Status: Chronic Qualifiers: Laterality: unspecified laterality (7) Metabolic encephalopathy Code(s): G93.41 - METABOLIC ENCEPHALOPATHY Status: Acute (8) Pancytopenia Code(s): D61.818 - OTHER PANCYTOPENIA Status: Acute (9) SIADH (syndrome of inappropriate ADH production) Status: Acute - Plan atrial fib: cont digoin, eliquis, diltizem cont fluid restiction discuss with consultants
[2020-12-02] MEDS: Apixaban 5 MG TAB PO SCH ×2 (13:34→21:41)
[2020-12-02] MEDS: Citalopram 10 MG TAB PO SCH (13:35)
[2020-12-02] MEDS: Nebivolol HCl 5 MG TAB PO SCH (13:35)
[2020-12-02] MEDS: Saccharomyces boulardii 250 MG CAP PO SCH (13:36)
--- NOTE | 2020-12-02 13:46 | PRG ---
DATE OF SERVICE: 12/02/2020 SUBJECTIVE: Ms. Burgess appears to slightly improve versus yesterday. Her mentation is somewhat better, but from my standpoint, had a significant delirium yesterday. She is back in sinus rhythm with controlled heart rate and blood pressure. OBJECTIVE: VITAL SIGNS: Blood pressure 129/82, pulse 86, and temperature 98.2. Physical exam deferred. PERTINENT LABORATORY DATA: Sodium is 137, potassium 3.6. Hemoglobin 9.4. IMPRESSION: 1. Paroxysmal atrial fibrillation. 2. Hyponatremia. 3. Delirium. 4. Metastatic lung cancer. RECOMMENDATIONS: The patient has paroxysmal atrial fibrillation secondary to recent stressors and delirium. I do not feel this is a long-term issue unless proven otherwise. At this point, continue with IV Cardizem. She is not able to take p.o. Anticoagulation therapy can be resumed. She was on Eliquis 5 mg b.i.d. at home. Once she has taken p.o. medications, I would continue with Bystolic p.o. Job ID: [id number]
--- NOTE | 2020-12-02 14:33 | PDOC.EEG ---
Neurology EEG Report - Report Report: This EEG was performed using 24 channel [employer] video EEG machine with 24 disc electrodes. This was an extended 2 hours 5 minutes of inpatient video EEG recording. Digital analysis of the EEG was done for spike and seizure detection which revealed no abnormalities. Background: The posterior background rhythm is 8-8.5 Hz. The background rhythm attenuates with eye opening and enhances with eye closure. Hyperventilation: Not performed. Photic Stimulation: Bioccipital symmetric driving response is observed. Sleep: Drowsiness is observed. EEG Diagnosis: Occasional irregular theta activity seen during the recording. Clinical interpretation: This EEG is consistent with mild generalized nonspecific cerebral dysfunction.
--- NOTE | 2020-12-02 14:54 | CON ---
NEUROLOGY CONSULTATION DATE OF CONSULTATION: 12/02/2020 REASON FOR CONSULTATION: Recurrent fall/altered mental status. HISTORY OF PRESENT ILLNESS: Ms. Brooklyn Burgess is a 70-year-old female with medical history significant for COPD, deep venous thrombosis, pulmonary embolism, and lung cancer, currently receiving chemotherapy with Dr. Flanagan, presented to the emergency room with altered mental status, generalized weakness, and multiple falls over the last few days. The patient is extremely weak at this point and the history is obtained from the . According to the , she has not been able to eat or drink well few days prior to the admission on 11/27/2020 and she developed tremors and confusion. The denies any focal weakness, focal paresthesias, nausea, vomiting, chest pain, abdominal pain, headache, recent illness, or recent exposure to COVID. She was brought to the emergency room, where she was found to have hyponatremia with a sodium of 122 and was admitted for management of hyponatremia. ALLERGIES: AZITHROMYCIN, PENICILLIN. HOME MEDICATIONS: 1. Celexa. 2. Bystolic. 3. Anoro Ellipta. 4. Tylenol No. 3. 5. Albuterol sulfate. 6. Eliquis. 7. Omnicef. 8. Vibramycin. 9. Ipratropium nebulizer. PAST MEDICAL HISTORY: 1. Lung cancer, status post chemotherapy and radiation. 2. COPD. 3. Pulmonary embolism. 4. Deep venous thrombosis. PAST SURGICAL HISTORY: Bone marrow biopsy. FAMILY HISTORY: No significant family history. SOCIAL HISTORY: , lives with her Denies alcohol, illegal drug use. REVIEW OF SYSTEMS: All systems reviewed and were negative except for the pertinent positives and negatives mentioned in the HPI. Vital Signs & Weight: Vital Signs (12 hours) Temp Pulse Resp BP Pulse Ox 12/02/20 11:42 98.2 F 86 15 129/82 93 L 12/02/20 10:30 93 L 12/02/20 08:08 83 16 95 12/02/20 07:20 97.9 F 85 18 128/74 93 L 12/02/20 03:47 98.4 F 98 16 121/81 90 L 12/02/20 01:05 97 Weight Admit Weight 127 lb 6.835 oz Weight 120 lb 14.4 oz I&O: 12/01/20 12/02/20 12/03/20 06:59 06:59 06:59 Intake Total 840 Balance 840 Additional Labs: Accuchecks 11/30/20 22:48 POC Glucose 134 H Active Medications Generic Name Dose Route Start Last Admin Trade Name Freq PRN Reason Stop Dose Admin Albuterol/Ipratropium 3 ml 11/30/20 13:00 12/02/20 08:08 Ipratropium/Albuterol Sulfate 3 Ml Neb NEB 3 ml [id number] QUINN Administration Apixaban 5 mg 11/30/20 09:00 12/01/20 21:26 Apixaban 5 Mg Tab PO Not Given BID QUINN Citalopram Hydrobromide 10 mg 12/01/20 09:00 12/01/20 13:59 Citalopram 10 Mg Tab PO Not Given DAILY QUINN Diltiazem HCl 125 mg/ 125 mls @ 5 mls/hr 12/01/20 13:45 12/01/20 14:04 Miscellaneous Medication 1 IVPB 125 mls each/ Sodium Chloride INF QUINN Administration Protocol Dextrose/Sodium Chloride 1,000 mls @ 50 mls/hr 12/01/20 17:15 12/01/20 18:26 D5 0.9% Ns IV 1,000 mls .Q20H QUINN Administration Melatonin 3 mg 12/01/20 08:37 12/01/20 21:25 Melatonin 3 Mg Tab PO 3 mg HS PRN Administration Insomnia Nebivolol 5 mg 11/30/20 09:00 12/01/20 12:42 Nebivolol Hcl 5 Mg Tab PO Not Given DAILY QUINN Ondansetron HCl 8 mg 11/30/20 14:00 12/02/20 05:34 Ondansetron Odt 8 Mg Tab PO Not Given Q8HR QUINN Saccharomyces Boulardii 250 mg 12/01/20 09:00 12/01/20 13:59 Saccharomyces Boulardii 250 Mg Cap PO Not Given DAILY QUINN Sodium Chloride 10 ml 11/29/20 09:00 12/02/20 12:18 Flush - Normal Saline 10 Ml Syringe IVF Not Given Q12HR QUINN PHYSICAL EXAMINATION: GENERAL APPEARANCE: Awake, alert. CVS: Regular rate and rhythm. CHEST: Clear. ABDOMEN: Soft. NECK: Supple. NEUROLOGICAL: Mental status; the patient is alert and oriented to person, place, and time. Speech is clear. Cranial nerves 2 through 12 intact. Motor, muscle tone is normal. Bulk is decreased. Moving all 4 extremities equally and symmetrically. Sensory intact. Cerebellar intact. Gait deferred due to the patient's safety reason. DATA REVIEWED: The labs were reviewed, which were significant for hyponatremia at 122 on initial admission, which is now improved. MRI of the brain reviewed, which was negative for acute intracranial pathology. ASSESSMENT AND PLAN: (1) Atrial fibrillation with rapid ventricular response Code(s): I48.91 - UNSPECIFIED ATRIAL FIBRILLATION Status: Acute (2) COPD (chronic obstructive pulmonary disease) Status: Acute (3) Hypomagnesemia Code(s): E83.42 - HYPOMAGNESEMIA Status: Acute (4) Hyponatremia Code(s): E87.1 - HYPO-OSMOLALITY AND HYPONATREMIA Status: Acute (5) Hypophosphatemia Code(s): E83.39 - OTHER DISORDERS OF PHOSPHORUS METABOLISM Status: Acute (6) Lung cancer Code(s): C34.90 - MALIGNANT NEOPLASM OF UNSP PART OF UNSP BRONCHUS OR LUNG Status: Chronic Qualifiers: Laterality: unspecified laterality (7) Metabolic encephalopathy Code(s): G93.41 - METABOLIC ENCEPHALOPATHY Status: Acute (8) Pancytopenia Code(s): D61.818 - OTHER PANCYTOPENIA Status: Acute (9) SIADH (syndrome of inappropriate ADH production) Status: Acute Ms. Brooklyn Burgess is a 70-year-old female with history significant for lung cancer, presented with hyponatremia, most likely secondary to SIADH, which can cause confusion and tremors. MRI of the brain reviewed, which did not reveal any acute intracranial process or stroke or brain metastasis. EEG ongoing. We will follow up on the results. Neuro checks every 4 hours. Continue home medications. Continue medical management per primary team, Oncology, and Nephrology. PT/OT/Speech. Further recommendations will depend on the results of the EEG testing. We will continue to follow. Plan discussed in detail with patient and her at bedside. Thank you for the consult. Job ID: [id number] MTDD
[2020-12-02] MEDS: Dextrose 5 % And 0.9 % NaCl 1,000 ML IV SCH (15:25)
--- NOTE | 2020-12-02 18:28 | EKG ---
Test Reason : Blood Pressure : / mmHG Vent. Rate : 134 BPM Atrial Rate : 073 BPM P-R Int : 000 ms QRS Dur : 088 ms QT Int : 302 ms P-R-T Axes : 000 106 024 degrees QTc Int : 450 ms Atrial fibrillation with rapid ventricular response with premature ventricular or aberrantly conducte d complexes Possible Right ventricular hypertrophy Abnormal ECG When compared with ECG of 27-NOV-2020 00:55, Atrial fibrillation has replaced Sinus rhythm Criteria for Septal infarct are no longer Present T wave inversion no longer evident in Anterior leads Confirmed by FAMILIA WONG, DR. Lester ([id number]) on 12/02/2020 6:28:19 PM Referred By: MELISSA Confirmed By:DR. Tayler BARBOSA MD
[2020-12-02] MEDS: Melatonin 3 MG TAB PO PRN (21:41)
[2020-12-03 05:30] LABS: Band 12 % (5-11); Eosinophils 2 % (0-10); Hypochromia SLIGHT = 6-15 cells (100X) (0-5/hpf); Lymphocytes 10 % (21-51); MDiff Complete? YES; Mean Corpuscular HGB CONC 33.5 g/dL (32.0-36.0); Mean Corpuscular Hemoglobin 30.4 pg (27.0-31.0); Mean Corpuscular Volume 90.8 fL (78.0-98.0); Mean Platelet Volume 8.9 fL (7.4-10.4); Monocytes 10 % (0-10); Neutrophil 62 % (42-75); Platelet Count 93 thou/uL (130-400); Platelet Morphology Comment Appears Decreased; Reactive Lymphocytes 4 % (0-10); Red Blood Cell (RBC) Count 2.96 mill/uL (4.20-5.40); White Blood Cell (WBC) Count 1.6 thou/uL (4.8-10.8)
[2020-12-03 05:33] LABS: Anion Gap 9 mmol/L (10-20); BUN (Urea Nitrogen) 32 mg/dL (9.8-20.1); Calc. Creatinine Clearance 61 mL/min (70-130); Calcium 8.5 mg/dL (7.8-10.44); Carbon Dioxide 32 mmol/L (23-31); Chloride 104 mmol/L (98-107); Glucose 120 mg/dL (83-110); Potassium 3.3 mmol/L (3.5-5.1); Sodium 142 mmol/L (136-145)
[2020-12-03] MEDS: Ondansetron ODT 8 MG TAB PO SCH ×3 (06:26→21:47)
[2020-12-03] MEDS ORDERED: Potassium Chloride 20 MEQ TAB PO SCH ×2 (06:30→16:00)
[2020-12-03 07:05] LABS: Phosphorus 2.4 mg/dL (2.3-4.7)
[2020-12-03] MEDS: Nebivolol HCl 5 MG TAB PO SCH (09:36)
[2020-12-03] MEDS: Saccharomyces boulardii 250 MG CAP PO SCH (09:36)
[2020-12-03] MEDS: Citalopram 10 MG TAB PO SCH (09:36)
[2020-12-03] MEDS: Apixaban 5 MG TAB PO SCH ×2 (09:36→21:46)
--- NOTE | 2020-12-03 09:50 | PDOC.HOSPP ---
- Subjective Encounter Date: 12/03/20 Encounter Time: 09:47 Subjective: more alert, responsive - Objective Vital Signs & Weight: Vital Signs (12 hours) Temp Pulse Resp BP Pulse Ox 12/03/20 07:25 63 22 H 93 L 12/03/20 07:00 98.7 F 65 25 H 111/74 96 12/03/20 03:13 96.9 F L 64 18 117/71 93 L 12/03/20 00:27 67 24 H 90 L 12/03/20 00:00 64 114/71 Weight Admit Weight 127 lb 6.835 oz Weight 120 lb 14.4 oz I&O: 12/02/20 12/03/20 12/04/20 06:59 06:59 06:59 Intake Total 840 840 Output Total 750 Balance 840 90 Result Diagrams: 12/03/20 04:30 12/03/20 04:30 Additional Labs: Accuchecks 11/30/20 22:48 POC Glucose 134 H Hospitalist ROS - Medication Medications: Active Medications Generic Name Dose Route Start Last Admin Trade Name Freq PRN Reason Stop Dose Admin Albuterol/Ipratropium 3 ml 11/30/20 13:00 12/03/20 07:25 Ipratropium/Albuterol Sulfate 3 Ml Neb NEB 3 ml [id number] QUINN Administration Apixaban 5 mg 11/30/20 09:00 12/03/20 09:36 Apixaban 5 Mg Tab PO 5 mg BID QUINN Administration Citalopram Hydrobromide 10 mg 12/01/20 09:00 12/03/20 09:36 Citalopram 10 Mg Tab PO 10 mg DAILY QUINN Administration Dextrose/Sodium Chloride 1,000 mls @ 50 mls/hr 12/01/20 17:15 12/02/20 15:25 D5 0.9% Ns IV 1,000 mls .Q20H QUINN Administration Melatonin 3 mg 12/01/20 08:37 12/02/20 21:41 Melatonin 3 Mg Tab PO 3 mg HS PRN Administration Insomnia Nebivolol 5 mg 11/30/20 09:00 12/03/20 09:36 Nebivolol Hcl 5 Mg Tab PO 5 mg DAILY QUINN Administration Ondansetron HCl 8 mg 11/30/20 14:00 12/03/20 06:26 Ondansetron Odt 8 Mg Tab PO 8 mg Q8HR QUINN Administration Potassium Chloride 40 meq 12/03/20 06:30 12/03/20 07:22 Potassium Chloride 20 Meq Tab PO 12/03/20 10:00 40 meq NOW QUINN Administration Saccharomyces Boulardii 250 mg 12/01/20 09:00 12/03/20 09:36 Saccharomyces Boulardii 250 Mg Cap PO 250 mg DAILY QUINN Administration Sodium Chloride 10 ml 11/29/20 09:00 12/03/20 09:37 Flush - Normal Saline 10 Ml Syringe IVF Not Given Q12HR [facility] Hospitalist Exam Vitals: Vital Signs (12 hours) Temp Pulse Resp BP Pulse Ox 12/03/20 07:25 63 22 H 93 L 12/03/20 07:00 98.7 F 65 25 H 111/74 96 12/03/20 03:13 96.9 F L 64 18 117/71 93 L 12/03/20 00:27 67 24 H 90 L 12/03/20 00:00 64 114/71 Weight Admit Weight 127 lb 6.835 oz Weight 120 lb 14.4 oz General Appearance: awake alert Neck: no JVD Heart: RRR, no murmur Respiratory: CTAB Gastrointestinal: soft, normal bowel sounds Extremities: no edema Hosp A/P (1) Atrial fibrillation with rapid ventricular response Code(s): I48.91 - UNSPECIFIED ATRIAL FIBRILLATION Status: Resolved (2) COPD (chronic obstructive pulmonary disease) Status: Acute Qualifiers: Emphysema type: unspecified (3) Hypomagnesemia Code(s): E83.42 - HYPOMAGNESEMIA Status: Acute (4) Hyponatremia Code(s): E87.1 - HYPO-OSMOLALITY AND HYPONATREMIA Status: Resolved (5) Hypophosphatemia Code(s): E83.39 - OTHER DISORDERS OF PHOSPHORUS METABOLISM Status: Acute (6) Lung cancer Code(s): C34.90 - MALIGNANT NEOPLASM OF UNSP PART OF UNSP BRONCHUS OR LUNG Status: Chronic Qualifiers: Laterality: unspecified laterality (7) Metabolic encephalopathy Code(s): G93.41 - METABOLIC ENCEPHALOPATHY Status: Acute (8) Pancytopenia Code(s): D61.818 - OTHER PANCYTOPENIA Status: Acute (9) SIADH (syndrome of inappropriate ADH production) Status: Acute - Plan atrial fib: resolved, DC iv diltiazem encourage po intake hyponatremia resolved cont fluid restiction discuss with consultants
[2020-12-03] MEDS: Dextrose 5 % And 0.9 % NaCl 1,000 ML IV SCH (11:32)
--- NOTE | 2020-12-03 11:34 | PDOC.NEPPN ---
- Subjective Encounter Date: 12/03/20 Subjective: Seen and examined. More awake and conversational. More appropriate also - Objective Vital Signs & Weight: Vital Signs (12 hours) Temp Pulse Resp BP Pulse Ox 12/03/20 07:25 63 22 H 93 L 12/03/20 07:00 98.7 F 65 25 H 111/74 96 12/03/20 03:13 96.9 F L 64 18 117/71 93 L 12/03/20 00:27 67 24 H 90 L 12/03/20 00:00 64 114/71 Weight Admit Weight 127 lb 6.835 oz Weight 120 lb 14.4 oz I&O: 12/02/20 12/03/20 12/04/20 06:59 06:59 06:59 Intake Total 840 840 Output Total 750 Balance 840 90 Result Diagrams: 12/03/20 04:30 12/03/20 04:30 Nephrology ROS - Medication Medications: Active Medications Generic Name Dose Route Start Last Admin Trade Name Freq PRN Reason Stop Dose Admin Albuterol/Ipratropium 3 ml 11/30/20 13:00 12/03/20 07:25 Ipratropium/Albuterol Sulfate 3 Ml Neb NEB 3 ml [id number] QUINN Administration Apixaban 5 mg 11/30/20 09:00 12/03/20 09:36 Apixaban 5 Mg Tab PO 5 mg BID QUINN Administration Citalopram Hydrobromide 10 mg 12/01/20 09:00 12/03/20 09:36 Citalopram 10 Mg Tab PO 10 mg DAILY QUINN Administration Dextrose/Sodium Chloride 1,000 mls @ 50 mls/hr 12/01/20 17:15 12/02/20 15:25 D5 0.9% Ns IV 1,000 mls .Q20H QUINN Administration Melatonin 3 mg 12/01/20 08:37 12/02/20 21:41 Melatonin 3 Mg Tab PO 3 mg HS PRN Administration Insomnia Nebivolol 5 mg 11/30/20 09:00 12/03/20 09:36 Nebivolol Hcl 5 Mg Tab PO 5 mg DAILY QUINN Administration Ondansetron HCl 8 mg 11/30/20 14:00 12/03/20 06:26 Ondansetron Odt 8 Mg Tab PO 8 mg Q8HR QUINN Administration Saccharomyces Boulardii 250 mg 12/01/20 09:00 12/03/20 09:36 Saccharomyces Boulardii 250 Mg Cap PO 250 mg DAILY QUINN Administration Sodium Chloride 10 ml 11/29/20 09:00 12/03/20 09:37 Flush - Normal Saline 10 Ml Syringe IVF Not Given Q12HR QUINN - Exam General Appearance: awake alert Eye: anicteric sclera ENT: normocephalic atraumatic Neck: symmetric, no JVD Respiratory - other findings: fair air entry with transmitted sound Cardiovascular: RRR Gastrointestinal: soft, non-tender, non-distended, normal bowel sounds Extremities: no cyanosis, no edema Neurological: CN's grossly intact, no focal deficits Musculoskeletal: generalized weakness PSYCH: A&O x 3 Nephrology Results - Labs Result Diagrams: 12/03/20 04:30 12/03/20 04:30 Lab results: WBC 1.6 thou/uL (4.8-10.8) L 12/03/20 04:30 Hgb 9.0 g/dL (12.0-16.0) L 12/03/20 04:30 Hct 26.9 % (36.0-47.0) L 12/03/20 04:30 MCV 90.8 fL (78.0-98.0) 12/03/20 04:30 Plt Count 93 thou/uL (130-400) L 12/03/20 04:30 Neutrophils % 63.3 % (42.0-75.0) 12/01/20 04:16 Band Neuts % (Manual) 12 % (5-11) H 12/03/20 04:30 ABG pH 7.48 (7.35-7.45) H 12/01/20 16:00 ABG pCO2 44.6 mmHg (35.0-45.0) 12/01/20 16:00 ABG pO2 65.4 mmHg (> 70.0) 12/01/20 16:00 Sodium 142 mmol/L (136-145) 12/03/20 04:30 Potassium 3.3 mmol/L (3.5-5.1) L 12/03/20 04:30 Chloride 104 mmol/L (98-107) 12/03/20 04:30 Carbon Dioxide 32 mmol/L (23-31) H 12/03/20 04:30 BUN 32 mg/dL (9.8-20.1) H 12/03/20 04:30 Creatinine 0.73 mg/dL (0.6-1.1) 12/03/20 04:30 Glucose 120 mg/dL (83-110) H 12/03/20 04:30 Lactic Acid 1.3 mmol/L (0.5-2.2) 12/01/20 08:38 Calcium 8.5 mg/dL (7.8-10.44) 12/03/20 04:30 Total Bilirubin 0.6 mg/dL (0.2-1.2) 12/01/20 08:38 AST 26 U/L (5-34) 12/01/20 08:38 ALT 18 U/L (8-55) 12/01/20 08:38 Alkaline Phosphatase 60 U/L (40-110) 12/01/20 08:38 Ammonia 21 umol/L (18-72) 12/01/20 08:38 CK-MB (CK-2) 0.4 ng/mL (0-6.6) 11/27/20 02:23 Troponin I 0.035 ng/mL (< 0.028) H 11/27/20 02:23 B-Natriuretic Peptide 1094.4 pg/mL (0-100) H 11/27/20 02:23 Serum Total Protein 4.9 g/dL (5.8-8.1) L 12/01/20 08:38 Albumin 2.9 g/dL (3.4-4.8) L 12/01/20 08:38 Urine Ketones Trace mg/dL (Negative) A 12/01/20 09:04 Urine Blood Negative (Negative) 12/01/20 09:04 Urine Nitrite Negative (Negative) 12/01/20 09:04 Ur Leukocyte Esterase Negative Uyen/uL (Negative) 12/01/20 09:04 Urine RBC 0-3 HPF (0-3) 11/27/20 04:37 Urine WBC 0-3 HPF (0-3) 11/27/20 04:37 Ur Squamous Epith Cells None Seen HPF (0-3) 11/27/20 04:37 Urine Bacteria None Seen HPF (None Seen) 11/27/20 04:37 Sodium 142 mmol/L (136-145) 12/03/20 04:30 Potassium 3.3 mmol/L (3.5-5.1) L 12/03/20 04:30 Chloride 104 mmol/L (98-107) 12/03/20 04:30 Carbon Dioxide 32 mmol/L (23-31) H 12/03/20 04:30 Anion Gap 9 mmol/L (10-20) L 12/03/20 04:30 BUN 32 mg/dL (9.8-20.1) H 12/03/20 04:30 Creatinine 0.73 mg/dL (0.6-1.1) 12/03/20 04:30 Glucose 120 mg/dL (83-110) H 12/03/20 04:30 Calcium 8.5 mg/dL (7.8-10.44) 12/03/20 04:30 Phosphorus 2.4 mg/dL (2.3-4.7) 12/03/20 04:30 Magnesium 1.9 mg/dL (1.6-2.6) 11/30/20 10:46 Albumin 2.9 g/dL (3.4-4.8) L 12/01/20 08:38 Nephrology AP PN - Plan ASSESSMENT: Hyponatremia: Symptomatic. 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 Poor solute intake and hypokalemia are also contributory to the hyponatremia. Resolved with crystalloid, albumin and salt tablet. Volume depletion. Improved. Hypokalemia: Recurrent. Acute Encephalopathy: Most likely due to scopolamine with possible contribution from electrolyte derangement and or hypoperfusion. Patient was on scopolamine patch. Acute CVA ruled out. Pancytopenia related to chemotherapy. Protein-calorie malnutrition. Dysphagia paroxysmal atrial fib. PLAN Replete serum potassium. Get Plasma magnesium and phosporus [place] solute intake advised. Will DC D5/NS once oral intake is consistent Follow electrolytes and adjust treatment as needed
--- NOTE | 2020-12-03 15:30 | PRG ---
DATE OF SERVICE: 12/03/2020 SUBJECTIVE: Ms. Burgess appears slightly more lucid today and has been over the last several days. She has no current complaints. She remains in sinus rhythm. OBJECTIVE: VITAL SIGNS: Blood pressure 143/92, pulse 85, temperature 97.6. LUNGS: Rhonchi and rales bilaterally. HEART: Regular rate and rhythm. ABDOMEN: Soft, nontender, nondistended. EXTREMITIES: No edema. PERTINENT LABORATORY DATA: Hemoglobin 9.0, hematocrit 26.9. IMPRESSION: 1. Atrial fibrillation. 2. Syndrome of inappropriate antidiuretic hormone secretion. 3. Metastatic lung cancer. 4. Previous pulmonary embolism. RECOMMENDATIONS: The patient is currently on anticoagulation therapy for PE. I do feel her atrial fibrillation is secondary to recent insult. Her sodium level appears to have normalized and her mentation has also appeared to improve. Blood pressure also has improved and if needed, could add low-dose beta-charity therapy and we will also recommend continuing low-dose Bystolic at 5 mg one p.o. q.a.m. Otherwise, I have no further recommendations done. Job ID: [id number]
[2020-12-03] MEDS: Aluminum & Magnesium Hydroxide 60 ML, Lidocaine 2% Viscous Solution 30 ML, diphenhydrAM... SSP SCH (17:49)
[2020-12-04 06:41] LABS: Band 8 % (5-11); Eosinophils 7 % (0-10); Lymphocytes 33 % (21-51); MDiff Complete? YES; Mean Corpuscular HGB CONC 32.6 g/dL (32.0-36.0); Mean Corpuscular Hemoglobin 30.5 pg (27.0-31.0); Mean Corpuscular Volume 93.5 fL (78.0-98.0); Mean Platelet Volume 8.5 fL (7.4-10.4); Metamyelocyte 4 % (0-0); Monocytes 11 % (0-10); Myelocyte 2 % (0-0); Neutrophil 35 % (42-75); Platelet Count 150 thou/uL (130-400); Platelet Morphology Comment Appears Adequate; RBC Distribution Width 14.7 % (11.5-14.5); Red Blood Cell (RBC) Count 3.28 mill/uL (4.20-5.40); White Blood Cell (WBC) Count 2.1 thou/uL (4.8-10.8)
[2020-12-04 06:50] LABS: Albumin 2.9 g/dL (3.4-4.8); Anion Gap 9 mmol/L (10-20); BUN (Urea Nitrogen) 28 mg/dL (9.8-20.1); BUN/Creatinine Ratio 43.08; Calc. Creatinine Clearance 69 mL/min (70-130); Calcium 8.2 mg/dL (7.8-10.44); Carbon Dioxide 29 mmol/L (23-31); Chloride 108 mmol/L (98-107); Glucose 95 mg/dL (83-110); Magnesium 1.5 mg/dL (1.6-2.6); Phosphorus 1.7 mg/dL (2.3-4.7); Potassium 4.2 mmol/L (3.5-5.1); Sodium 142 mmol/L (136-145)
[2020-12-04] MEDS: Ondansetron ODT 8 MG TAB PO SCH ×4 (07:34→21:51)
[2020-12-04] MEDS: Dextrose 5 % And 0.9 % NaCl 1,000 ML IV SCH (07:34)
[2020-12-04] MEDS ORDERED: Magnesium 2 GM/50 ML 2 GM in Premix Bag 1 BAG IVPB SCH (08:00)
--- NOTE | 2020-12-04 08:43 | PDOC.NEPPN ---
- Subjective Encounter Date: 12/04/20 Subjective: Seen and examined. No new problem. Tolerating oral intake. No more tremors - Objective Vital Signs & Weight: Vital Signs (12 hours) Temp Pulse Resp BP Pulse Ox 12/04/20 07:30 97.6 F 67 20 130/74 96 12/04/20 03:32 97.5 F L 67 20 125/77 96 12/04/20 00:00 65 125/72 97 Weight Admit Weight 127 lb 6.835 oz Weight 120 lb 14.4 oz I&O: 12/03/20 12/04/20 12/05/20 06:59 06:59 06:59 Intake Total 840 2255 Output Total 750 950 Balance 90 1305 Result Diagrams: 12/04/20 06:12 12/04/20 06:12 Nephrology ROS - Medication Medications: Active Medications Generic Name Dose Route Start Last Admin Trade Name Freq PRN Reason Stop Dose Admin Albuterol/Ipratropium 3 ml 11/30/20 13:00 12/04/20 07:40 Ipratropium/Albuterol Sulfate 3 Ml Neb NEB 3 ml [id number] QUINN Administration Apixaban 5 mg 11/30/20 09:00 12/03/20 21:46 Apixaban 5 Mg Tab PO 5 mg BID QUINN Administration Citalopram Hydrobromide 10 mg 12/01/20 09:00 12/03/20 09:36 Citalopram 10 Mg Tab PO 10 mg DAILY QUINN Administration Al Hydroxide/Mg Hydroxide 60 0 ml 12/03/20 17:00 12/03/20 17:49 ml/ Lidocaine HCl 30 ml/ SSP 10 ml Diphenhydramine HCl 75 mg AC QUINN Administration Melatonin 3 mg 12/01/20 08:37 12/02/20 21:41 Melatonin 3 Mg Tab PO 3 mg HS PRN Administration Insomnia Nebivolol 5 mg 11/30/20 09:00 12/03/20 09:36 Nebivolol Hcl 5 Mg Tab PO 5 mg DAILY QUINN Administration Ondansetron HCl 8 mg 11/30/20 14:00 12/04/20 07:34 Ondansetron Odt 8 Mg Tab PO Not Given Q8HR QUINN Saccharomyces Boulardii 250 mg 12/01/20 09:00 12/03/20 09:36 Saccharomyces Boulardii 250 Mg Cap PO 250 mg DAILY QUINN Administration Sodium Chloride 10 ml 11/29/20 09:00 12/03/20 21:47 Flush - Normal Saline 10 Ml Syringe IVF 10 ml Q12HR QUINN Administration - Exam General Appearance: awake alert Eye: anicteric sclera ENT: normocephalic atraumatic, dry oral mucosa Neck: symmetric, no JVD Respiratory: no wheezes, no ronchi Respiratory - other findings: fair air entry with some transmitted sound Cardiovascular: RRR Gastrointestinal: soft, non-distended, normal bowel sounds Extremities: no edema Neurological: CN's grossly intact, no focal deficits Musculoskeletal: generalized weakness PSYCH: A&O x 3 Nephrology Results - Labs Result Diagrams: 12/04/20 06:12 12/04/20 06:12 Lab results: WBC 2.1 thou/uL (4.8-10.8) L 12/04/20 06:12 Hgb 10.0 g/dL (12.0-16.0) L 12/04/20 06:12 Hct 30.7 % (36.0-47.0) L 12/04/20 06:12 MCV 93.5 fL (78.0-98.0) 12/04/20 06:12 Plt Count 150 thou/uL (130-400) 12/04/20 06:12 Neutrophils % 63.3 % (42.0-75.0) 12/01/20 04:16 Band Neuts % (Manual) 8 % (5-11) 12/04/20 06:12 ABG pH 7.48 (7.35-7.45) H 12/01/20 16:00 ABG pCO2 44.6 mmHg (35.0-45.0) 12/01/20 16:00 ABG pO2 65.4 mmHg (> 70.0) 12/01/20 16:00 Sodium 142 mmol/L (136-145) 12/04/20 06:12 Potassium 4.2 mmol/L (3.5-5.1) 12/04/20 06:12 Chloride 108 mmol/L (98-107) H 12/04/20 06:12 Carbon Dioxide 29 mmol/L (23-31) 12/04/20 06:12 BUN 28 mg/dL (9.8-20.1) H 12/04/20 06:12 Creatinine 0.65 mg/dL (0.6-1.1) 12/04/20 06:12 Glucose 95 mg/dL (83-110) 12/04/20 06:12 Lactic Acid 1.3 mmol/L (0.5-2.2) 12/01/20 08:38 Calcium 8.2 mg/dL (7.8-10.44) 12/04/20 06:12 Total Bilirubin 0.6 mg/dL (0.2-1.2) 12/01/20 08:38 AST 26 U/L (5-34) 12/01/20 08:38 ALT 18 U/L (8-55) 12/01/20 08:38 Alkaline Phosphatase 60 U/L (40-110) 12/01/20 08:38 Ammonia 21 umol/L (18-72) 12/01/20 08:38 CK-MB (CK-2) 0.4 ng/mL (0-6.6) 11/27/20 02:23 Troponin I 0.035 ng/mL (< 0.028) H 11/27/20 02:23 B-Natriuretic Peptide 1094.4 pg/mL (0-100) H 11/27/20 02:23 Serum Total Protein 4.9 g/dL (5.8-8.1) L 12/01/20 08:38 Albumin 2.9 g/dL (3.4-4.8) L 12/04/20 06:12 Urine Ketones Trace mg/dL (Negative) A 12/01/20 09:04 Urine Blood Negative (Negative) 12/01/20 09:04 Urine Nitrite Negative (Negative) 12/01/20 09:04 Ur Leukocyte Esterase Negative Uyen/uL (Negative) 12/01/20 09:04 Urine RBC 0-3 HPF (0-3) 11/27/20 04:37 Urine WBC 0-3 HPF (0-3) 11/27/20 04:37 Ur Squamous Epith Cells None Seen HPF (0-3) 11/27/20 04:37 Urine Bacteria None Seen HPF (None Seen) 11/27/20 04:37 Sodium 142 mmol/L (136-145) 12/04/20 06:12 Potassium 4.2 mmol/L (3.5-5.1) 12/04/20 06:12 Chloride 108 mmol/L (98-107) H 12/04/20 06:12 Carbon Dioxide 29 mmol/L (23-31) 12/04/20 06:12 Anion Gap 9 mmol/L (10-20) L 12/04/20 06:12 BUN 28 mg/dL (9.8-20.1) H 12/04/20 06:12 Creatinine 0.65 mg/dL (0.6-1.1) 12/04/20 06:12 Glucose 95 mg/dL (83-110) 12/04/20 06:12 Calcium 8.2 mg/dL (7.8-10.44) 12/04/20 06:12 Phosphorus 1.7 mg/dL (2.3-4.7) L 12/04/20 06:12 Magnesium 1.5 mg/dL (1.6-2.6) L 12/04/20 06:12 Albumin 2.9 g/dL (3.4-4.8) L 12/04/20 06:12 Nephrology AP PN - Plan ASSESSMENT: Hyponatremia: Symptomatic. 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 Poor solute intake and hypokalemia are also contributory to the hyponatremia. Resolved with crystalloid, albumin and salt tablet. Volume depletion. Improved. Hypokalemia: Recurrent. Hypophosphatemia Hypomagnesemia Acute Encephalopathy: Most likely due to scopolamine with possible contribution from electrolyte derangement and or hypoperfusion. Patient was on scopolamine patch. Acute CVA ruled out. Pancytopenia related to chemotherapy. Protein-calorie malnutrition. Dysphagia paroxysmal atrial fib. PLAN Replete serum magnesium and phosphorus increase free water intake.. Breeding oral solute intake advised. DC D5/NS Follow electrolytes and adjust treatment as needed
[2020-12-04] MEDS: Nebivolol HCl 5 MG TAB PO SCH (08:59)
[2020-12-04] MEDS: Saccharomyces boulardii 250 MG CAP PO SCH (08:59)
[2020-12-04] MEDS: Citalopram 10 MG TAB PO SCH (08:59)
[2020-12-04] MEDS: Apixaban 5 MG TAB PO SCH ×2 (08:59→21:45)
[2020-12-04] MEDS: PHOS-NAK 1 PKT PACK PO SCH ×2 (09:00→13:24)
[2020-12-04] MEDS: Aluminum & Magnesium Hydroxide 60 ML, Lidocaine 2% Viscous Solution 30 ML, diphenhydrAM... SSP SCH ×3 (09:23→17:56)
--- NOTE | 2020-12-04 15:58 | PRG ---
DATE OF SERVICE: 12/04/2020 SUBJECTIVE: Ms. Burgess continues to slowly improve. Her mentation is improved. She continues to be in sinus rhythm. OBJECTIVE: VITAL SIGNS: Blood pressure 126/69, pulse 80, and temperature 98.2. Physical exam, deferred. PERTINENT LABORATORY DATA: Hemoglobin 10, hematocrit 30.7. Creatinine 0.65. IMPRESSION: 1. Atrial fibrillation. 2. Syndrome of inappropriate antidiuretic hormone secretion. 3. Recent pulmonary embolism. RECOMMENDATIONS: 1. Anticoagulation therapy has been started. She is on apixaban 5 mg one p.o. b.i.d. Continue Bystolic at 5 mg one p.o. q.a.m. Otherwise from a CV standpoint, I have no further recommendations. We would not recommend antiarrhythmic therapy for episode of atrial fibrillation lasting less than 12 hours and likely related to underlying condition. 2. We will follow peripherally. Job ID: [id number]
[2020-12-05 04:14] LABS: #Eosinphils 0.3 thou/uL (0.0-0.7); #Lymphocytes 0.4 thou/uL (1.20-3.40); #Monocytes 0.4 thou/uL (0.11-0.59); #Neutrophils 1.3 thou/uL (1.40-6.50); %Basophils 0.6 % (0.0-1.0); %Eosinophils 13.4 % (0.0-10.0); %Lymphocytes 17.1 % (21.0-51.0); %Monocytes 14.4 % (0.0-10.0); %Neutrophils 54.4 % (42.0-75.0); Hemoglobin 9.4 g/dL (12.0-16.0); Mean Corpuscular HGB CONC 32.4 g/dL (32.0-36.0); Mean Corpuscular Hemoglobin 30.4 pg (27.0-31.0); Mean Corpuscular Volume 93.8 fL (78.0-98.0); Mean Platelet Volume 7.6 fL (7.4-10.4); Platelet Count 175 thou/uL (130-400); RBC Distribution Width 15.1 % (11.5-14.5); Red Blood Cell (RBC) Count 3.08 mill/uL (4.20-5.40); White Blood Cell (WBC) Count 2.4 thou/uL (4.8-10.8)
[2020-12-05 04:53] LABS: Albumin 2.8 g/dL (3.4-4.8); Anion Gap 10 mmol/L (10-20); BUN (Urea Nitrogen) 28 mg/dL (9.8-20.1); BUN/Creatinine Ratio 43.75; Calc. Creatinine Clearance 70 mL/min (70-130); Calcium 8.3 mg/dL (7.8-10.44); Carbon Dioxide 33 mmol/L (23-31); Chloride 102 mmol/L (98-107); Glucose 86 mg/dL (83-110); Magnesium 1.5 mg/dL (1.6-2.6); Phosphorus 2.4 mg/dL (2.3-4.7); Sodium 141 mmol/L (136-145)
[2020-12-05] MEDS: Ondansetron ODT 8 MG TAB PO SCH ×3 (05:51→20:16)
[2020-12-05] MEDS ORDERED: Magnesium 2 GM/50 ML 2 GM in Premix Bag 1 BAG IVPB SCH (06:45)
[2020-12-05] MEDS ORDERED: Magnesium 2 GM/50 ML 4 GM in Premix Bag 1 BAG IVPB SCH (07:20)
[2020-12-05] MEDS ORDERED: Magnesium Sulfate 4 GM in Sodium Chloride 0.9% 250 ML 250 ML IVPB SCH (08:00)
[2020-12-05] MEDS: Aluminum & Magnesium Hydroxide 60 ML, Lidocaine 2% Viscous Solution 30 ML, diphenhydrAM... SSP SCH ×3 (08:19→17:35)
[2020-12-05] MEDS: Nebivolol HCl 5 MG TAB PO SCH (08:19)
[2020-12-05] MEDS: Citalopram 10 MG TAB PO SCH (08:19)
[2020-12-05] MEDS: Apixaban 5 MG TAB PO SCH ×2 (08:19→20:10)
[2020-12-05] MEDS: Saccharomyces boulardii 250 MG CAP PO SCH (08:19)
--- NOTE | 2020-12-05 08:59 | PDOC.HOSPP ---
- Subjective Encounter Date: 12/04/20 Encounter Time: 10:00 Subjective: alert. no specific complaints - Objective Vital Signs & Weight: Vital Signs (12 hours) Temp Pulse Resp BP Pulse Ox 12/05/20 03:44 98 F 75 20 136/77 93 L 12/05/20 00:14 95 Weight Admit Weight 127 lb 6.835 oz Weight 120 lb 14.4 oz I&O: 12/04/20 12/05/20 12/06/20 06:59 06:59 06:59 Intake Total 2255 1080 Output Total 950 601 Balance 1305 479 Result Diagrams: 12/05/20 03:58 12/05/20 03:58 Hospitalist ROS - Medication Medications: Active Medications Generic Name Dose Route Start Last Admin Trade Name Freq PRN Reason Stop Dose Admin Albuterol/Ipratropium 3 ml 11/30/20 13:00 12/05/20 07:45 Ipratropium/Albuterol Sulfate 3 Ml Neb NEB 3 ml [id number] QUINN Administration Apixaban 5 mg 11/30/20 09:00 12/05/20 08:19 Apixaban 5 Mg Tab PO 5 mg BID QUINN Administration Citalopram Hydrobromide 10 mg 12/01/20 09:00 12/05/20 08:19 Citalopram 10 Mg Tab PO 10 mg DAILY QUINN Administration Al Hydroxide/Mg Hydroxide 60 0 ml 12/03/20 17:00 12/05/20 08:19 ml/ Lidocaine HCl 30 ml/ SSP 10 ml Diphenhydramine HCl 75 mg AC QUINN Administration Melatonin 3 mg 12/01/20 08:37 12/02/20 21:41 Melatonin 3 Mg Tab PO 3 mg HS PRN Administration Insomnia Nebivolol 5 mg 11/30/20 09:00 12/05/20 08:19 Nebivolol Hcl 5 Mg Tab PO 5 mg DAILY QUINN Administration Ondansetron HCl 8 mg 11/30/20 14:00 12/05/20 05:51 Ondansetron Odt 8 Mg Tab PO Not Given Q8HR QUINN Saccharomyces Boulardii 250 mg 12/01/20 09:00 12/05/20 08:19 Saccharomyces Boulardii 250 Mg Cap PO 250 mg DAILY QUINN Administration Sodium Chloride 10 ml 11/29/20 09:00 12/05/20 08:19 Flush - Normal Saline 10 Ml Syringe IVF 10 ml Q12HR [facility] Administration Hospitalist Exam Vitals: Vital Signs (12 hours) Temp Pulse Resp BP Pulse Ox 12/05/20 03:44 98 F 75 20 136/77 93 L 12/05/20 00:14 95 Weight Admit Weight 127 lb 6.835 oz Weight 120 lb 14.4 oz General Appearance: awake alert Neck: no JVD Heart: RRR Respiratory: CTAB Gastrointestinal: soft, normal bowel sounds Extremities: 1+ LE edema Hosp A/P (1) Atrial fibrillation with rapid ventricular response Code(s): I48.91 - UNSPECIFIED ATRIAL FIBRILLATION Status: Resolved (2) COPD (chronic obstructive pulmonary disease) Status: Acute Qualifiers: Emphysema type: unspecified (3) Hypomagnesemia Code(s): E83.42 - HYPOMAGNESEMIA Status: Acute (4) Hyponatremia Code(s): E87.1 - HYPO-OSMOLALITY AND HYPONATREMIA Status: Resolved (5) Hypophosphatemia Code(s): E83.39 - OTHER DISORDERS OF PHOSPHORUS METABOLISM Status: Acute (6) Lung cancer Code(s): C34.90 - MALIGNANT NEOPLASM OF UNSP PART OF UNSP BRONCHUS OR LUNG Status: Chronic Qualifiers: Laterality: unspecified laterality (7) Metabolic encephalopathy Code(s): G93.41 - METABOLIC ENCEPHALOPATHY Status: Acute (8) Pancytopenia Code(s): D61.818 - OTHER PANCYTOPENIA Status: Acute (9) SIADH (syndrome of inappropriate ADH production) Status: Acute - Plan encourage po intake cont fluid restiction cont nevbolin,anticoag discuss wit consultants
--- NOTE | 2020-12-05 10:01 | PDOC.NEPPN ---
- Subjective Encounter Date: 12/05/20 Subjective: Seen and examined. - Objective Vital Signs & Weight: Vital Signs (12 hours) Temp Pulse Resp BP Pulse Ox 12/05/20 03:44 98 F 75 20 136/77 93 L 12/05/20 00:14 95 Weight Admit Weight 127 lb 6.835 oz Weight 120 lb 14.4 oz I&O: 12/04/20 12/05/20 12/06/20 06:59 06:59 06:59 Intake Total 2255 1080 Output Total 950 601 Balance 1305 479 Result Diagrams: 12/05/20 03:58 12/05/20 03:58 Nephrology ROS - Medication Medications: Active Medications Generic Name Dose Route Start Last Admin Trade Name Freq PRN Reason Stop Dose Admin Albuterol/Ipratropium 3 ml 11/30/20 13:00 12/05/20 07:45 Ipratropium/Albuterol Sulfate 3 Ml Neb NEB 3 ml [id number] QUINN Administration Apixaban 5 mg 11/30/20 09:00 12/05/20 08:19 Apixaban 5 Mg Tab PO 5 mg BID QUINN Administration Citalopram Hydrobromide 10 mg 12/01/20 09:00 12/05/20 08:19 Citalopram 10 Mg Tab PO 10 mg DAILY QUINN Administration Al Hydroxide/Mg Hydroxide 60 0 ml 12/03/20 17:00 12/05/20 08:19 ml/ Lidocaine HCl 30 ml/ SSP 10 ml Diphenhydramine HCl 75 mg AC QUINN Administration Magnesium Sulfate 4 gm/ Sodium 258 mls @ 129 mls/hr 12/05/20 08:00 12/05/20 09:47 Chloride IVPB 12/05/20 12:00 258 mls NOW QUINN Administration Melatonin 3 mg 12/01/20 08:37 12/02/20 21:41 Melatonin 3 Mg Tab PO 3 mg HS PRN Administration Insomnia Nebivolol 5 mg 11/30/20 09:00 12/05/20 08:19 Nebivolol Hcl 5 Mg Tab PO 5 mg DAILY QUINN Administration Ondansetron HCl 8 mg 11/30/20 14:00 12/05/20 05:51 Ondansetron Odt 8 Mg Tab PO Not Given Q8HR QUINN Saccharomyces Boulardii 250 mg 12/01/20 09:00 12/05/20 08:19 Saccharomyces Boulardii 250 Mg Cap PO 250 mg DAILY QUINN Administration Sodium Chloride 10 ml 11/29/20 09:00 12/05/20 08:19 Flush - Normal Saline 10 Ml Syringe IVF 10 ml Q12HR QUINN Administration - Exam General Appearance: awake alert Eye: anicteric sclera ENT: normocephalic atraumatic Neck: symmetric Respiratory - other findings: fair air entry with transmitted sound Cardiovascular: RRR Gastrointestinal: soft, non-distended, normal bowel sounds Extremities: no edema Neurological: CN's grossly intact, no focal deficits Musculoskeletal: generalized weakness PSYCH: A&O x 3 Nephrology Results - Labs Result Diagrams: 12/05/20 03:58 12/05/20 03:58 Lab results: WBC 2.4 thou/uL (4.8-10.8) L 12/05/20 03:58 Hgb 9.4 g/dL (12.0-16.0) L 12/05/20 03:58 Hct 28.9 % (36.0-47.0) L 12/05/20 03:58 MCV 93.8 fL (78.0-98.0) 12/05/20 03:58 Plt Count 175 thou/uL (130-400) 12/05/20 03:58 Neutrophils % 54.4 % (42.0-75.0) 12/05/20 03:58 Band Neuts % (Manual) 8 % (5-11) 12/04/20 06:12 ABG pH 7.48 (7.35-7.45) H 12/01/20 16:00 ABG pCO2 44.6 mmHg (35.0-45.0) 12/01/20 16:00 ABG pO2 65.4 mmHg (> 70.0) 12/01/20 16:00 Sodium 141 mmol/L (136-145) 12/05/20 03:58 Potassium 4.0 mmol/L (3.5-5.1) 12/05/20 03:58 Chloride 102 mmol/L (98-107) 12/05/20 03:58 Carbon Dioxide 33 mmol/L (23-31) H 12/05/20 03:58 BUN 28 mg/dL (9.8-20.1) H 12/05/20 03:58 Creatinine 0.64 mg/dL (0.6-1.1) 12/05/20 03:58 Glucose 86 mg/dL (83-110) 12/05/20 03:58 Lactic Acid 1.3 mmol/L (0.5-2.2) 12/01/20 08:38 Calcium 8.3 mg/dL (7.8-10.44) 12/05/20 03:58 Total Bilirubin 0.6 mg/dL (0.2-1.2) 12/01/20 08:38 AST 26 U/L (5-34) 12/01/20 08:38 ALT 18 U/L (8-55) 12/01/20 08:38 Alkaline Phosphatase 60 U/L (40-110) 12/01/20 08:38 Ammonia 21 umol/L (18-72) 12/01/20 08:38 CK-MB (CK-2) 0.4 ng/mL (0-6.6) 11/27/20 02:23 Troponin I 0.035 ng/mL (< 0.028) H 11/27/20 02:23 B-Natriuretic Peptide 1094.4 pg/mL (0-100) H 11/27/20 02:23 Serum Total Protein 4.9 g/dL (5.8-8.1) L 12/01/20 08:38 Albumin 2.8 g/dL (3.4-4.8) L 12/05/20 03:58 Urine Ketones Trace mg/dL (Negative) A 12/01/20 09:04 Urine Blood Negative (Negative) 12/01/20 09:04 Urine Nitrite Negative (Negative) 12/01/20 09:04 Ur Leukocyte Esterase Negative Uyen/uL (Negative) 12/01/20 09:04 Urine RBC 0-3 HPF (0-3) 11/27/20 04:37 Urine WBC 0-3 HPF (0-3) 11/27/20 04:37 Ur Squamous Epith Cells None Seen HPF (0-3) 11/27/20 04:37 Urine Bacteria None Seen HPF (None Seen) 11/27/20 04:37 Sodium 141 mmol/L (136-145) 12/05/20 03:58 Potassium 4.0 mmol/L (3.5-5.1) 12/05/20 03:58 Chloride 102 mmol/L (98-107) 12/05/20 03:58 Carbon Dioxide 33 mmol/L (23-31) H 12/05/20 03:58 Anion Gap 10 mmol/L (10-20) 12/05/20 03:58 BUN 28 mg/dL (9.8-20.1) H 12/05/20 03:58 Creatinine 0.64 mg/dL (0.6-1.1) 12/05/20 03:58 Glucose 86 mg/dL (83-110) 12/05/20 03:58 Calcium 8.3 mg/dL (7.8-10.44) 12/05/20 03:58 Phosphorus 2.4 mg/dL (2.3-4.7) 12/05/20 03:58 Magnesium 1.5 mg/dL (1.6-2.6) L 12/05/20 03:58 Albumin 2.8 g/dL (3.4-4.8) L 12/05/20 03:58 Nephrology AP PN - Plan ASSESSMENT: Hyponatremia: Symptomatic. 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 Poor solute intake and hypokalemia are also contributory to the hyponatremia. Resolved with crystalloid, albumin and salt tablet. Volume depletion. Improved. Hypokalemia: Recurrent. Hypophosphatemia. Repleted. Hypomagnesemia: Persistent Acute Encephalopathy: Most likely due to scopolamine with possible contribution from electrolyte derangement and or hypoperfusion. Acute CVA ruled out. Pancytopenia related to chemotherapy. Protein-calorie malnutrition. Dysphagia Paroxysmal atrial fib. PLAN Give 4 grams of magnesium sulphate Relax fluid restriction further to 2000 per 24 hours [place] oral solute intake advised. Follow electrolytes and adjust treatment as needed
--- NOTE | 2020-12-05 14:16 | PDOC.HOSPP ---
- Subjective Encounter Date: 12/05/20 Encounter Time: 14:13 Subjective: awake, alerrt, no specific complaints - Objective Vital Signs & Weight: Vital Signs (12 hours) Temp Pulse Resp BP Pulse Ox 12/05/20 07:20 98.8 F 80 18 142/76 H 92 L 12/05/20 03:44 98 F 75 20 136/77 93 L Weight Admit Weight 127 lb 6.835 oz Weight 120 lb 14.4 oz I&O: 12/04/20 12/05/20 12/06/20 06:59 06:59 06:59 Intake Total 2255 1080 Output Total 950 601 Balance 1305 479 Result Diagrams: 12/05/20 03:58 12/05/20 03:58 Hospitalist ROS - Medication Medications: Active Medications Generic Name Dose Route Start Last Admin Trade Name Freq PRN Reason Stop Dose Admin Albuterol/Ipratropium 3 ml 11/30/20 13:00 12/05/20 12:39 Ipratropium/Albuterol Sulfate 3 Ml Neb NEB 3 ml [id number] QUINN Administration Apixaban 5 mg 11/30/20 09:00 12/05/20 08:19 Apixaban 5 Mg Tab PO 5 mg BID QUINN Administration Citalopram Hydrobromide 10 mg 12/01/20 09:00 12/05/20 08:19 Citalopram 10 Mg Tab PO 10 mg DAILY QUINN Administration Al Hydroxide/Mg Hydroxide 60 0 ml 12/03/20 17:00 12/05/20 11:46 ml/ Lidocaine HCl 30 ml/ SSP 10 ml Diphenhydramine HCl 75 mg AC QUINN Administration Melatonin 3 mg 12/01/20 08:37 12/02/20 21:41 Melatonin 3 Mg Tab PO 3 mg HS PRN Administration Insomnia Nebivolol 5 mg 11/30/20 09:00 12/05/20 08:19 Nebivolol Hcl 5 Mg Tab PO 5 mg DAILY QUINN Administration Ondansetron HCl 8 mg 11/30/20 14:00 12/05/20 05:51 Ondansetron Odt 8 Mg Tab PO Not Given Q8HR QUINN Saccharomyces Boulardii 250 mg 12/01/20 09:00 12/05/20 08:19 Saccharomyces Boulardii 250 Mg Cap PO 250 mg DAILY QUINN Administration Sodium Chloride 10 ml 11/29/20 09:00 12/05/20 08:19 Flush - Normal Saline 10 Ml Syringe IVF 10 ml Q12HR QUINN Administration Hospitalist Exam Vitals: Vital Signs (12 hours) Temp Pulse Resp BP Pulse Ox 12/05/20 07:20 98.8 F 80 18 142/76 H 92 L 12/05/20 03:44 98 F 75 20 136/77 93 L Weight Admit Weight 127 lb 6.835 oz Weight 120 lb 14.4 oz General Appearance: awake alert Neck: no JVD Heart: RRR, no murmur Respiratory: CTAB Gastrointestinal: soft, non-distended, normal bowel sounds Extremities: no edema Hosp A/P (1) Atrial fibrillation with rapid ventricular response Code(s): I48.91 - UNSPECIFIED ATRIAL FIBRILLATION Status: Resolved (2) COPD (chronic obstructive pulmonary disease) Status: Acute Qualifiers: Emphysema type: unspecified (3) Hypomagnesemia Code(s): E83.42 - HYPOMAGNESEMIA Status: Acute (4) Hyponatremia Code(s): E87.1 - HYPO-OSMOLALITY AND HYPONATREMIA Status: Resolved (5) Hypophosphatemia Code(s): E83.39 - OTHER DISORDERS OF PHOSPHORUS METABOLISM Status: Acute (6) Lung cancer Code(s): C34.90 - MALIGNANT NEOPLASM OF UNSP PART OF UNSP BRONCHUS OR LUNG Status: Chronic Qualifiers: Laterality: unspecified laterality (7) Metabolic encephalopathy Code(s): G93.41 - METABOLIC ENCEPHALOPATHY Status: Acute (8) Pancytopenia Code(s): D61.818 - OTHER PANCYTOPENIA Status: Acute (9) SIADH (syndrome of inappropriate ADH production) Status: Acute - Plan encourage po intake cont fluid restiction cont nevbolin,anticoag mag-oxide daily CM for Rehab vs SNF discuss wit consultants
[2020-12-05] MEDS: Nystatin 500,000 UNITS/5 ML UDCUP SSW SCH ×2 (17:35→20:10)
[2020-12-06] MEDS: Ondansetron ODT 8 MG TAB PO SCH ×2 (07:12→15:43)
[2020-12-06] MEDS ORDERED: hydrALAZINE 20 MG/ML VIAL SLOW IVP PRN (08:42)
[2020-12-06] MEDS ORDERED: Senokot S 8.6-50 MG TAB PO PRN (08:42)
[2020-12-06] MEDS ORDERED: Ondansetron PF 4 MG/2 ML Vial IVP PRN (08:42)
[2020-12-06] MEDS ORDERED: Zolpidem Tartrate 5 MG TAB PO PRN (08:42)
[2020-12-06] MEDS ORDERED: Cepastat Lozenges 1 LOZ PO PRN (08:42)
[2020-12-06] MEDS ORDERED: Calcium Carbonate 500 MG ChewTAB PO PRN (08:42)
[2020-12-06] MEDS ORDERED: Loperamide HCl 2 MG CAP PO PRN (08:42)
[2020-12-06] MEDS ORDERED: HYDROcodone/Acetaminophen 5/325 mg Tablet PO PRN (08:42)
[2020-12-06] MEDS ORDERED: Loratadine 10 MG TAB PO PRN (08:42)
[2020-12-06] MEDS ORDERED: Bisacodyl 5 MG TAB PO PRN (08:42)
[2020-12-06] MEDS ORDERED: GUAIFENESIN SF SOLN 200 MG/10 ML UDCUP PO PRN (08:42)
[2020-12-06] MEDS ORDERED: Sodium Chloride 0.65% Nasal 44 ML BOT EA NARE PRN (08:42)
[2020-12-06] MEDS ORDERED: Ondansetron ODT 4 MG TAB PO PRN (08:42)
[2020-12-06] MEDS ORDERED: Benzonatate 100 MG CAP PO PRN (08:42)
[2020-12-06] MEDS ORDERED: Magnesium Oxide 400 MG TAB PO SCH (09:00)
[2020-12-06] MEDS: Saccharomyces boulardii 250 MG CAP PO SCH (09:34)
[2020-12-06] MEDS: Citalopram 10 MG TAB PO SCH (09:34)
[2020-12-06] MEDS: Nebivolol HCl 5 MG TAB PO SCH (09:35)
[2020-12-06] MEDS: Aluminum & Magnesium Hydroxide 60 ML, Lidocaine 2% Viscous Solution 30 ML, diphenhydrAM... SSP SCH ×3 (09:37→18:01)
[2020-12-06] MEDS: Apixaban 5 MG TAB PO SCH ×2 (09:38→21:24)
[2020-12-06 10:11] LABS: Albumin 2.8 g/dL (3.4-4.8); Anion Gap 11 mmol/L (10-20); BUN (Urea Nitrogen) 24 mg/dL (9.8-20.1); BUN/Creatinine Ratio 36.92; Calc. Creatinine Clearance 71 mL/min (70-130); Calcium 8.4 mg/dL (7.8-10.44); Carbon Dioxide 34 mmol/L (23-31); Chloride 97 mmol/L (98-107); Glucose 115 mg/dL (83-110); Magnesium 1.7 mg/dL (1.6-2.6); Phosphorus 2.7 mg/dL (2.3-4.7); Potassium 4.5 mmol/L (3.5-5.1); Sodium 137 mmol/L (136-145)
[2020-12-06 10:32] VITALS: BMI 21.4
[2020-12-06] MEDS: Cyanocobalamin (Vitamin B-12) 1,000 MCG TAB PO SCH (10:56)
[2020-12-06] MEDS: Folic Acid 1 MG TAB PO SCH (10:56)
[2020-12-06] MEDS: Multivitamin W/ Minerals 1 TAB PO SCH (10:56)
[2020-12-06] MEDS: Nystatin 500,000 UNITS/5 ML UDCUP SSW SCH ×4 (10:57→21:24)
[2020-12-06] MEDS ORDERED: Pantoprazole 40 MG GRANULES PACKET PO SCH (11:00)
--- NOTE | 2020-12-06 11:09 | PDOC.NEPPN ---
- Subjective Encounter Date: 12/06/20 Subjective: Seen and examined. Tolerating more intake. Still fatigued but afebrile. - Objective Vital Signs & Weight: Vital Signs (12 hours) Temp Pulse Resp BP Pulse Ox 12/06/20 08:07 96.6 F L 72 20 135/73 100 12/06/20 08:00 76 16 94 L 12/06/20 03:00 98.2 F 84 18 123/74 92 L 12/06/20 01:48 95 12/05/20 23:25 89 123/73 Weight Admit Weight 127 lb 6.835 oz Weight 124 lb 9.6 oz I&O: 12/05/20 12/06/20 12/07/20 06:59 06:59 06:59 Intake Total 1080 1205 Output Total 601 400 Balance 479 805 Result Diagrams: 12/05/20 03:58 12/06/20 09:29 Nephrology ROS - Medication Medications: Active Medications Generic Name Dose Route Start Last Admin Trade Name Freq PRN Reason Stop Dose Admin Albuterol/Ipratropium 3 ml 11/30/20 13:00 12/06/20 08:00 Ipratropium/Albuterol Sulfate 3 Ml Neb NEB 3 ml [id number] QUINN Administration Apixaban 5 mg 11/30/20 09:00 12/06/20 09:38 Apixaban 5 Mg Tab PO 5 mg BID QUINN Administration Citalopram Hydrobromide 10 mg 12/01/20 09:00 12/06/20 09:34 Citalopram 10 Mg Tab PO 10 mg DAILY QUINN Administration Al Hydroxide/Mg Hydroxide 60 0 ml 12/03/20 17:00 12/06/20 09:37 ml/ Lidocaine HCl 30 ml/ SSP 10 ml Diphenhydramine HCl 75 mg AC QUINN Administration Cyanocobalamin 1,000 mcg 12/06/20 09:00 12/06/20 10:56 Cyanocobalamin (Vitamin B-12) 1,000 Mcg Tab PO 1,000 mcg DAILY QUINN Administration Folic Acid 1 mg 12/06/20 09:00 12/06/20 10:56 Folic Acid 1 Mg Tab PO 1 mg DAILY QUINN Administration Iron/Minerals/Multivitamins 1 tab 12/06/20 09:00 12/06/20 10:56 Multivitamin W/ Minerals 1 Tab PO 1 tab DAILY QUINN Administration Magnesium Oxide 400 mg 12/06/20 09:00 12/06/20 09:34 Magnesium Oxide 400 Mg Tab PO 400 mg DAILY QUINN Administration Melatonin 3 mg 12/01/20 08:37 12/02/20 21:41 Melatonin 3 Mg Tab PO 3 mg HS PRN Administration Insomnia Nebivolol 5 mg 11/30/20 09:00 12/06/20 09:35 Nebivolol Hcl 5 Mg Tab PO 5 mg DAILY QUINN Administration Nystatin 500,000 units 12/05/20 17:00 12/06/20 10:57 Nystatin 500,000 Units/5 Ml Udcup SSW 500,000 units QID QUINN Administration Ondansetron HCl 8 mg 11/30/20 14:00 12/06/20 07:12 Ondansetron Odt 8 Mg Tab PO Not Given Q8HR QUINN Saccharomyces Boulardii 250 mg 12/01/20 09:00 12/06/20 09:34 Saccharomyces Boulardii 250 Mg Cap PO 250 mg DAILY QUINN Administration Sodium Chloride 10 ml 11/29/20 09:00 12/05/20 20:10 Flush - Normal Saline 10 Ml Syringe IVF 10 ml Q12HR QUINN Administration - Exam General Appearance: awake alert General - other findings: fatigued. acutely ill looking ENT: normocephalic atraumatic, moist mucosa Neck: symmetric Cardiovascular: RRR Gastrointestinal: soft, non-distended, normal bowel sounds Extremities: no edema Neurological: CN's grossly intact, no focal deficits Musculoskeletal: generalized weakness PSYCH: A&O x 3 Nephrology Results - Labs Result Diagrams: 12/05/20 03:58 12/06/20 09:29 Lab results: WBC 2.4 thou/uL (4.8-10.8) L 12/05/20 03:58 Hgb 9.4 g/dL (12.0-16.0) L 12/05/20 03:58 Hct 28.9 % (36.0-47.0) L 12/05/20 03:58 MCV 93.8 fL (78.0-98.0) 12/05/20 03:58 Plt Count 175 thou/uL (130-400) 12/05/20 03:58 Neutrophils % 54.4 % (42.0-75.0) 12/05/20 03:58 Band Neuts % (Manual) 8 % (5-11) 12/04/20 06:12 ABG pH 7.48 (7.35-7.45) H 12/01/20 16:00 ABG pCO2 44.6 mmHg (35.0-45.0) 12/01/20 16:00 ABG pO2 65.4 mmHg (> 70.0) 12/01/20 16:00 Sodium 137 mmol/L (136-145) 12/06/20 09:29 Potassium 4.5 mmol/L (3.5-5.1) 12/06/20 09:29 Chloride 97 mmol/L (98-107) L 12/06/20 09:29 Carbon Dioxide 34 mmol/L (23-31) H 12/06/20 09:29 BUN 24 mg/dL (9.8-20.1) H 12/06/20 09:29 Creatinine 0.65 mg/dL (0.6-1.1) 12/06/20 09:29 Glucose 115 mg/dL (83-110) H 12/06/20 09:29 Lactic Acid 1.3 mmol/L (0.5-2.2) 12/01/20 08:38 Calcium 8.4 mg/dL (7.8-10.44) 12/06/20 09:29 Total Bilirubin 0.6 mg/dL (0.2-1.2) 12/01/20 08:38 AST 26 U/L (5-34) 12/01/20 08:38 ALT 18 U/L (8-55) 12/01/20 08:38 Alkaline Phosphatase 60 U/L (40-110) 12/01/20 08:38 Ammonia 21 umol/L (18-72) 12/01/20 08:38 CK-MB (CK-2) 0.4 ng/mL (0-6.6) 11/27/20 02:23 Troponin I 0.035 ng/mL (< 0.028) H 11/27/20 02:23 B-Natriuretic Peptide 1094.4 pg/mL (0-100) H 11/27/20 02:23 Serum Total Protein 4.9 g/dL (5.8-8.1) L 12/01/20 08:38 Albumin 2.8 g/dL (3.4-4.8) L 12/06/20 09:29 Urine Ketones Trace mg/dL (Negative) A 12/01/20 09:04 Urine Blood Negative (Negative) 12/01/20 09:04 Urine Nitrite Negative (Negative) 12/01/20 09:04 Ur Leukocyte Esterase Negative Uyen/uL (Negative) 12/01/20 09:04 Urine RBC 0-3 HPF (0-3) 11/27/20 04:37 Urine WBC 0-3 HPF (0-3) 11/27/20 04:37 Ur Squamous Epith Cells None Seen HPF (0-3) 11/27/20 04:37 Urine Bacteria None Seen HPF (None Seen) 11/27/20 04:37 Sodium 137 mmol/L (136-145) 12/06/20 09:29 Potassium 4.5 mmol/L (3.5-5.1) 12/06/20 09:29 Chloride 97 mmol/L (98-107) L 12/06/20 09:29 Carbon Dioxide 34 mmol/L (23-31) H 12/06/20 09:29 Anion Gap 11 mmol/L (10-20) 12/06/20 09:29 BUN 24 mg/dL (9.8-20.1) H 12/06/20 09:29 Creatinine 0.65 mg/dL (0.6-1.1) 12/06/20 09:29 Glucose 115 mg/dL (83-110) H 12/06/20 09:29 Calcium 8.4 mg/dL (7.8-10.44) 12/06/20 09:29 Phosphorus 2.7 mg/dL (2.3-4.7) 12/06/20 09:29 Magnesium 1.7 mg/dL (1.6-2.6) 12/06/20 09:29 Albumin 2.8 g/dL (3.4-4.8) L 12/06/20 09:29 Nephrology AP PN - Plan ASSESSMENT: Hyponatremia: Symptomatic. 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 Poor solute intake and hypokalemia are also contributory to the hyponatremia. Resolved with crystalloid, albumin and salt tablet. Volume depletion. Improved. Hypokalemia: Repleted Hypophosphatemia. Repleted. Hypomagnesemia: repleted Acute Encephalopathy: Most likely due to scopolamine with possible contribution from electrolyte derangement and or hypoperfusion. Acute CVA ruled out. Pancytopenia related to chemotherapy. Protein-calorie malnutrition. Dysphagia Paroxysmal atrial fib. PLAN Increase oral magnesium supplementation to 400 bid. [place] oral solute intake advised. Follow electrolytes and adjust treatment as needed
--- NOTE | 2020-12-06 13:23 | PDOC.HOSPP ---
- Subjective Encounter Date: 12/06/20 Encounter Time: 08:50 Subjective: Patient seen and examined bedside today, no overnight event, no new complaint, - Objective Vital Signs & Weight: Vital Signs (12 hours) Temp Pulse Resp BP Pulse Ox 12/06/20 08:07 96.6 F L 72 20 135/73 100 12/06/20 08:00 76 16 94 L 12/06/20 03:00 98.2 F 84 18 123/74 92 L 12/06/20 01:48 95 Weight Admit Weight 127 lb 6.835 oz Weight 124 lb 9.6 oz I&O: 12/05/20 12/06/20 12/07/20 06:59 06:59 06:59 Intake Total 1080 1205 Output Total 601 400 Balance 479 805 Result Diagrams: 12/05/20 03:58 12/06/20 09:29 EKG Reviewed by me: Yes Hospitalist ROS - Review of Systems Constitutional: reports: weakness. denies: fever, chills, sweats, malaise, other Respiratory: denies: cough, dry, shortness of breath, hemoptysis, SOB with excertion, pleuritic pain, sputum, wheezing, other Cardiovascular: denies: chest pain, palpitations, orthopnea, paroxysmal noc. dyspnea, edema, light headedness, other Gastrointestinal: denies: nausea, vomiting, abdominal pain, diarrhea, constipation, melena, hematochezia, other Genitourinary: denies: dysuria, frequency, incontinence, hematuria, retention, other Musculoskeletal: denies: neck pain, shoulder pain, arm pain, back pain, hand pain, leg pain, foot pain, other - Medication Medications: Active Medications Generic Name Dose Route Start Last Admin Trade Name Freq PRN Reason Stop Dose Admin Albuterol/Ipratropium 3 ml 11/30/20 13:00 12/06/20 08:00 Ipratropium/Albuterol Sulfate 3 Ml Neb NEB 3 ml [id number] QUINN Administration Apixaban 5 mg 11/30/20 09:00 12/06/20 09:38 Apixaban 5 Mg Tab PO 5 mg BID QUINN Administration Citalopram Hydrobromide 10 mg 12/01/20 09:00 12/06/20 09:34 Citalopram 10 Mg Tab PO 10 mg DAILY QUINN Administration Al Hydroxide/Mg Hydroxide 60 0 ml 12/03/20 17:00 12/06/20 09:37 ml/ Lidocaine HCl 30 ml/ SSP 10 ml Diphenhydramine HCl 75 mg AC QUINN Administration Cyanocobalamin 1,000 mcg 12/06/20 09:00 12/06/20 10:56 Cyanocobalamin (Vitamin B-12) 1,000 Mcg Tab PO 1,000 mcg DAILY QUINN Administration Folic Acid 1 mg 12/06/20 09:00 12/06/20 10:56 Folic Acid 1 Mg Tab PO 1 mg DAILY QUINN Administration Iron/Minerals/Multivitamins 1 tab 12/06/20 09:00 12/06/20 10:56 Multivitamin W/ Minerals 1 Tab PO 1 tab DAILY QUINN Administration Melatonin 3 mg 12/01/20 08:37 12/02/20 21:41 Melatonin 3 Mg Tab PO 3 mg HS PRN Administration Insomnia Nebivolol 5 mg 11/30/20 09:00 12/06/20 09:35 Nebivolol Hcl 5 Mg Tab PO 5 mg DAILY QUINN Administration Nystatin 500,000 units 12/05/20 17:00 12/06/20 10:57 Nystatin 500,000 Units/5 Ml Udcup SSW 500,000 units QID QUINN Administration Ondansetron HCl 8 mg 11/30/20 14:00 12/06/20 07:12 Ondansetron Odt 8 Mg Tab PO Not Given Q8HR QUINN Saccharomyces Boulardii 250 mg 12/01/20 09:00 12/06/20 09:34 Saccharomyces Boulardii 250 Mg Cap PO 250 mg DAILY QUINN Administration Sodium Chloride 10 ml 11/29/20 09:00 12/05/20 20:10 Flush - Normal Saline 10 Ml Syringe IVF 10 ml Q12HR QUINN Administration Hospitalist Exam Vitals: Vital Signs (12 hours) Temp Pulse Resp BP Pulse Ox 12/06/20 08:07 96.6 F L 72 20 135/73 100 12/06/20 08:00 76 16 94 L 12/06/20 03:00 98.2 F 84 18 123/74 92 L 12/06/20 01:48 95 Weight Admit Weight 127 lb 6.835 oz Weight 124 lb 9.6 oz General Appearance: NAD, awake alert Eye: PERRL, anicteric sclera ENT: normocephalic atraumatic, no oropharyngeal lesions Neck: supple, symmetric, no JVD, no thyromegaly Heart: RRR, no murmur, no gallops, no rubs Respiratory: no wheezes, no rales, no ronchi Gastrointestinal: soft, non-tender, non-distended, normal bowel sounds Extremities: no clubbing, no edema Skin: normal turgor, no lesions Neurological: no focal deficits Musculoskeletal: normal tone, normal strength Psychiatric: normal affect, normal behavior Hosp A/P (1) Hypomagnesemia Code(s): E83.42 - HYPOMAGNESEMIA Status: Acute (2) Hypophosphatemia Code(s): E83.39 - OTHER DISORDERS OF PHOSPHORUS METABOLISM Status: Acute (3) Metabolic encephalopathy Code(s): G93.41 - METABOLIC ENCEPHALOPATHY Status: Acute (4) Pancytopenia Code(s): D61.818 - OTHER PANCYTOPENIA Status: Acute (5) Respiratory failure with hypoxia Code(s): J96.91 - RESPIRATORY FAILURE, UNSPECIFIED WITH HYPOXIA Status: Acute (6) SIADH (syndrome of inappropriate ADH production) Status: Acute (7) Atrial fibrillation with rapid ventricular response Code(s): I48.91 - UNSPECIFIED ATRIAL FIBRILLATION Status: Resolved (8) Hyponatremia Code(s): E87.1 - HYPO-OSMOLALITY AND HYPONATREMIA Status: Resolved (9) COPD (chronic obstructive pulmonary disease) Status: Acute Qualifiers: Emphysema type: unspecified (10) Pneumonia Code(s): J18.9 - PNEUMONIA, UNSPECIFIED ORGANISM Status: Acute (11) Lung cancer Code(s): C34.90 - MALIGNANT NEOPLASM OF UNSP PART OF UNSP BRONCHUS OR LUNG Status: Chronic Qualifiers: Laterality: unspecified laterality (12) Pulmonary embolism Code(s): I26.99 - OTHER PULMONARY EMBOLISM WITHOUT ACUTE COR PULMONALE Status: Chronic - Plan old records reviewed/req, plan discussed w/ family, PT/OT, director of social work All electrolytes has been corrected and improved, at this point patient needs discharge placement, continue Eliquis, continue folic acid and vitamin B12, medication reviewed and continue provide symptomatic and supportive care Plan of care discussed with the family member bedside, no new recommendation, patient is overall doing better,
[2020-12-06] MEDS: Magnesium Oxide 400 MG TAB PO SCH (21:24)
[2020-12-07] MEDS: Ondansetron ODT 8 MG TAB PO SCH ×4 (03:25→21:24)
[2020-12-07] MEDS: Cyanocobalamin (Vitamin B-12) 1,000 MCG TAB PO SCH (09:14)
[2020-12-07] MEDS: Nebivolol HCl 5 MG TAB PO SCH (09:14)
[2020-12-07] MEDS: Pantoprazole 40 MG GRANULES PACKET PO SCH (09:14)
[2020-12-07] MEDS: Multivitamin W/ Minerals 1 TAB PO SCH (09:14)
[2020-12-07] MEDS: Folic Acid 1 MG TAB PO SCH (09:14)
[2020-12-07] MEDS: Magnesium Oxide 400 MG TAB PO SCH ×2 (09:14→21:23)
[2020-12-07] MEDS: Citalopram 10 MG TAB PO SCH (09:15)
[2020-12-07] MEDS: Apixaban 5 MG TAB PO SCH ×2 (09:15→21:23)
[2020-12-07] MEDS: Saccharomyces boulardii 250 MG CAP PO SCH (09:15)
[2020-12-07] MEDS: Nystatin 500,000 UNITS/5 ML UDCUP SSW SCH ×4 (09:17→21:23)
[2020-12-07] MEDS: Aluminum & Magnesium Hydroxide 60 ML, Lidocaine 2% Viscous Solution 30 ML, diphenhydrAM... SSP SCH ×3 (10:24→17:19)
--- NOTE | 2020-12-07 12:26 | PDOC.HOSPP ---
- Subjective Encounter Date: 12/07/20 Encounter Time: 10:15 Subjective: No complaints of SOB or palpitations. Slept well last night, is eating better, has not ambulated much. - Objective Vital Signs & Weight: Vital Signs (12 hours) Temp Pulse Resp BP Pulse Ox 12/07/20 11:29 97.5 F L 69 20 113/74 93 L 12/07/20 09:31 94 L 12/07/20 07:54 98.8 F 71 20 117/77 94 L 12/07/20 07:32 69 18 93 L 12/07/20 04:00 98.5 F 73 20 117/75 93 L 12/07/20 00:37 73 14 93 L Weight Admit Weight 127 lb 6.835 oz Weight 123 lb 15.984 oz I&O: 12/06/20 12/07/20 12/08/20 06:59 06:59 06:59 Intake Total 1205 100 Output Total 400 Balance 805 100 Result Diagrams: 12/05/20 03:58 12/06/20 09:29 Hospitalist ROS - Medication Medications: Active Medications Generic Name Dose Route Start Last Admin Trade Name Freq PRN Reason Stop Dose Admin Albuterol/Ipratropium 3 ml 11/30/20 13:00 12/07/20 07:32 Ipratropium/Albuterol Sulfate 3 Ml Neb NEB 3 ml [id number] QUINN Administration Apixaban 5 mg 11/30/20 09:00 12/07/20 09:15 Apixaban 5 Mg Tab PO 5 mg BID QUINN Administration Citalopram Hydrobromide 10 mg 12/01/20 09:00 12/07/20 09:15 Citalopram 10 Mg Tab PO 10 mg DAILY QUINN Administration Al Hydroxide/Mg Hydroxide 60 0 ml 12/03/20 17:00 12/07/20 11:39 ml/ Lidocaine HCl 30 ml/ SSP 10 ml Diphenhydramine HCl 75 mg AC QUINN Administration Cyanocobalamin 1,000 mcg 12/06/20 09:00 12/07/20 09:14 Cyanocobalamin (Vitamin B-12) 1,000 Mcg Tab PO 1,000 mcg DAILY QUINN Administration Folic Acid 1 mg 12/06/20 09:00 12/07/20 09:14 Folic Acid 1 Mg Tab PO 1 mg DAILY QUINN Administration Iron/Minerals/Multivitamins 1 tab 12/06/20 09:00 12/07/20 09:14 Multivitamin W/ Minerals 1 Tab PO 1 tab DAILY QUINN Administration Magnesium Oxide 400 mg 12/06/20 21:00 12/07/20 09:14 Magnesium Oxide 400 Mg Tab PO 400 mg BID QUINN Administration Melatonin 3 mg 12/01/20 08:37 12/02/20 21:41 Melatonin 3 Mg Tab PO 3 mg HS PRN Administration Insomnia Nebivolol 5 mg 11/30/20 09:00 12/07/20 09:14 Nebivolol Hcl 5 Mg Tab PO 5 mg DAILY QUINN Administration Nystatin 500,000 units 12/05/20 17:00 12/07/20 09:17 Nystatin 500,000 Units/5 Ml Udcup SSW 500,000 units QID QUINN Administration Ondansetron HCl 8 mg 11/30/20 14:00 12/07/20 06:12 Ondansetron Odt 8 Mg Tab PO Not Given Q8HR QUINN Pantoprazole Sodium 40 mg 12/07/20 09:00 12/07/20 09:14 Pantoprazole 40 Mg Granules Packet PO 40 mg DAILY QUINN Administration Saccharomyces Boulardii 250 mg 12/01/20 09:00 12/07/20 09:15 Saccharomyces Boulardii 250 Mg Cap PO 250 mg DAILY QUINN Administration Sodium Chloride 10 ml 11/29/20 09:00 12/07/20 09:20 Flush - Normal Saline 10 Ml Syringe IVF 10 ml Q12HR QUINN Administration Hospitalist Exam Vitals: Vital Signs (12 hours) Temp Pulse Resp BP Pulse Ox 12/07/20 11:29 97.5 F L 69 20 113/74 93 L 12/07/20 09:31 94 L 12/07/20 07:54 98.8 F 71 20 117/77 94 L 12/07/20 07:32 69 18 93 L 12/07/20 04:00 98.5 F 73 20 117/75 93 L 12/07/20 00:37 73 14 93 L Weight Admit Weight 127 lb 6.835 oz Weight 123 lb 15.984 oz General Appearance: awake alert Eye: PERRL, anicteric sclera ENT: no oropharyngeal lesions, moist mucosa Neck: supple, no JVD Heart: RRR, no murmur Respiratory: no wheezes, no rales, rhonchi Gastrointestinal: soft, non-tender, non-distended, normal bowel sounds Extremities: no cyanosis, no edema Neurological: cranial nerve grossly intact, no focal deficits Psychiatric: normal affect, A&O x 3 Hosp A/P (1) Metabolic encephalopathy Code(s): G93.41 - METABOLIC ENCEPHALOPATHY Status: Resolved (2) SIADH (syndrome of inappropriate ADH production) Status: Resolved (3) Atrial fibrillation with rapid ventricular response Code(s): I48.91 - UNSPECIFIED ATRIAL FIBRILLATION Status: Resolved (4) COPD (chronic obstructive pulmonary disease) Status: Chronic Qualifiers: Emphysema type: unspecified (5) Lung cancer Code(s): C34.90 - MALIGNANT NEOPLASM OF UNSP PART OF UNSP BRONCHUS OR LUNG Status: Chronic Qualifiers: Laterality: unspecified laterality (6) Pulmonary embolism Code(s): I26.99 - OTHER PULMONARY EMBOLISM WITHOUT ACUTE COR PULMONALE Status: Chronic Qualifiers: Pulmonary embolism type: unspecified Chronicity: chronic Acute cor pulmonale presence: without acute cor pulmonale Qualified Code(s): I27.82 - Chronic pulmonary embolism (7) Physical deconditioning Code(s): R53.81 - OTHER MALAISE Status: Acute - Plan Awaiting placement. Hemostable. PT to mobilize as tolerated. Continue Eloquis, folic acid, B12, celexa, nebs, bystolic. Her last chemotherapy was on 11/19/20 [Keytruda, Alimta, Carboplatin], has finished radiation to right pelvic area, adenocarcinoma lung stage 4. Pancytopenia is resolved, likely has chronic anemia. Echo showed EF of 53% with elevated RVSP.
[2020-12-07] MEDS ORDERED: Acetaminophen/Codeine 30-300mg Tablet PO PRN (14:13)
[2020-12-08] MEDS: Ondansetron ODT 8 MG TAB PO SCH ×3 (05:17→22:19)
[2020-12-08 06:22] LABS: Albumin 2.6 g/dL (3.4-4.8); Anion Gap 12 mmol/L (10-20); BUN (Urea Nitrogen) 21 mg/dL (9.8-20.1); BUN/Creatinine Ratio 33.33; Calc. Creatinine Clearance 76 mL/min (70-130); Calcium 8.4 mg/dL (7.8-10.44); Carbon Dioxide 32 mmol/L (23-31); Chloride 97 mmol/L (98-107); Glucose 96 mg/dL (83-110); Magnesium 1.4 mg/dL (1.6-2.6); Phosphorus 3.1 mg/dL (2.3-4.7); Potassium 4.6 mmol/L (3.5-5.1); Sodium 136 mmol/L (136-145)
[2020-12-08] MEDS ORDERED: Magnesium Sulfate 4 GM in Sodium Chloride 0.9% 250 ML 250 ML IVPB SCH (08:00)
[2020-12-08] MEDS: Pantoprazole 40 MG GRANULES PACKET PO SCH (09:05)
[2020-12-08] MEDS: Saccharomyces boulardii 250 MG CAP PO SCH (09:05)
[2020-12-08] MEDS: Apixaban 5 MG TAB PO SCH ×2 (09:05→22:18)
[2020-12-08] MEDS: Magnesium Oxide 400 MG TAB PO SCH ×2 (09:05→22:18)
[2020-12-08] MEDS: Folic Acid 1 MG TAB PO SCH (09:05)
[2020-12-08] MEDS: Cyanocobalamin (Vitamin B-12) 1,000 MCG TAB PO SCH (09:05)
[2020-12-08] MEDS: Nebivolol HCl 5 MG TAB PO SCH (09:05)
[2020-12-08] MEDS: Multivitamin W/ Minerals 1 TAB PO SCH (09:05)
[2020-12-08] MEDS: Citalopram 10 MG TAB PO SCH (09:05)
[2020-12-08] MEDS: Nystatin 500,000 UNITS/5 ML UDCUP SSW SCH ×4 (09:09→22:18)
[2020-12-08] MEDS: Aluminum & Magnesium Hydroxide 60 ML, Lidocaine 2% Viscous Solution 30 ML, diphenhydrAM... SSP SCH ×3 (10:54→17:10)
--- NOTE | 2020-12-08 12:57 | PDOC.NEPPN ---
- Subjective Encounter Date: 12/08/20 Subjective: Seen. Still weak. Remained afebrile. - Objective Vital Signs & Weight: Vital Signs (12 hours) Temp Pulse Resp BP Pulse Ox 12/08/20 07:57 98.4 F 75 20 124/81 92 L 12/08/20 06:34 84 16 93 L 12/08/20 04:41 98.7 F 74 18 135/84 94 L Weight Admit Weight 127 lb 6.835 oz Weight 130 lb 4.8 oz I&O: 12/07/20 12/08/20 12/09/20 06:59 06:59 06:59 Intake Total 100 790 Balance 100 790 Result Diagrams: 12/05/20 03:58 12/08/20 05:41 Nephrology ROS - Medication Medications: Active Medications Generic Name Dose Route Start Last Admin Trade Name Freq PRN Reason Stop Dose Admin Albuterol/Ipratropium 3 ml 11/30/20 13:00 12/08/20 06:34 Ipratropium/Albuterol Sulfate 3 Ml Neb NEB 3 ml [id number] QUINN Administration Apixaban 5 mg 11/30/20 09:00 12/08/20 09:05 Apixaban 5 Mg Tab PO 5 mg BID QUINN Administration Citalopram Hydrobromide 10 mg 12/01/20 09:00 12/08/20 09:05 Citalopram 10 Mg Tab PO 10 mg DAILY QUINN Administration Al Hydroxide/Mg Hydroxide 60 0 ml 12/03/20 17:00 12/08/20 12:22 ml/ Lidocaine HCl 30 ml/ SSP 10 ml Diphenhydramine HCl 75 mg AC QUINN Administration Cyanocobalamin 1,000 mcg 12/06/20 09:00 12/08/20 09:05 Cyanocobalamin (Vitamin B-12) 1,000 Mcg Tab PO 1,000 mcg DAILY QUINN Administration Folic Acid 1 mg 12/06/20 09:00 12/08/20 09:05 Folic Acid 1 Mg Tab PO 1 mg DAILY QUINN Administration Iron/Minerals/Multivitamins 1 tab 12/06/20 09:00 12/08/20 09:05 Multivitamin W/ Minerals 1 Tab PO 1 tab DAILY QUINN Administration Magnesium Oxide 400 mg 12/06/20 21:00 12/08/20 09:05 Magnesium Oxide 400 Mg Tab PO 400 mg BID QUINN Administration Melatonin 3 mg 12/01/20 08:37 12/02/20 21:41 Melatonin 3 Mg Tab PO 3 mg HS PRN Administration Insomnia Nebivolol 5 mg 11/30/20 09:00 12/08/20 09:05 Nebivolol Hcl 5 Mg Tab PO 5 mg DAILY QUINN Administration Nystatin 500,000 units 12/05/20 17:00 12/08/20 09:09 Nystatin 500,000 Units/5 Ml Udcup SSW 500,000 units QID QUINN Administration Ondansetron HCl 8 mg 11/30/20 14:00 12/08/20 05:17 Ondansetron Odt 8 Mg Tab PO Not Given Q8HR QUINN Pantoprazole Sodium 40 mg 12/07/20 09:00 12/08/20 09:05 Pantoprazole 40 Mg Granules Packet PO 40 mg DAILY QUINN Administration Saccharomyces Boulardii 250 mg 12/01/20 09:00 12/08/20 09:05 Saccharomyces Boulardii 250 Mg Cap PO 250 mg DAILY QUINN Administration Sodium Chloride 10 ml 11/29/20 09:00 12/08/20 09:10 Flush - Normal Saline 10 Ml Syringe IVF 10 ml Q12HR QUINN Administration - Exam General Appearance: awake alert Eye: anicteric sclera ENT: normocephalic atraumatic, moist mucosa Neck: symmetric, no JVD Respiratory - other findings: fair air entry with some transmitted sound Cardiovascular: RRR Gastrointestinal: soft, non-tender, non-distended, normal bowel sounds Extremities: no edema Neurological: CN's grossly intact, no focal deficits Musculoskeletal: generalized weakness PSYCH: A&O x 3 Nephrology Results - Labs Result Diagrams: 12/05/20 03:58 12/08/20 05:41 Lab results: WBC 2.4 thou/uL (4.8-10.8) L 12/05/20 03:58 Hgb 9.4 g/dL (12.0-16.0) L 12/05/20 03:58 Hct 28.9 % (36.0-47.0) L 12/05/20 03:58 MCV 93.8 fL (78.0-98.0) 12/05/20 03:58 Plt Count 175 thou/uL (130-400) 12/05/20 03:58 Neutrophils % 54.4 % (42.0-75.0) 12/05/20 03:58 Band Neuts % (Manual) 8 % (5-11) 12/04/20 06:12 ABG pH 7.48 (7.35-7.45) H 12/01/20 16:00 ABG pCO2 44.6 mmHg (35.0-45.0) 12/01/20 16:00 ABG pO2 65.4 mmHg (> 70.0) 12/01/20 16:00 Sodium 136 mmol/L (136-145) 12/08/20 05:41 Potassium 4.6 mmol/L (3.5-5.1) 12/08/20 05:41 Chloride 97 mmol/L (98-107) L 12/08/20 05:41 Carbon Dioxide 32 mmol/L (23-31) H 12/08/20 05:41 BUN 21 mg/dL (9.8-20.1) H 12/08/20 05:41 Creatinine 0.63 mg/dL (0.6-1.1) 12/08/20 05:41 Glucose 96 mg/dL (83-110) 12/08/20 05:41 Lactic Acid 1.3 mmol/L (0.5-2.2) 12/01/20 08:38 Calcium 8.4 mg/dL (7.8-10.44) 12/08/20 05:41 Total Bilirubin 0.6 mg/dL (0.2-1.2) 12/01/20 08:38 AST 26 U/L (5-34) 12/01/20 08:38 ALT 18 U/L (8-55) 12/01/20 08:38 Alkaline Phosphatase 60 U/L (40-110) 12/01/20 08:38 Ammonia 21 umol/L (18-72) 12/01/20 08:38 CK-MB (CK-2) 0.4 ng/mL (0-6.6) 11/27/20 02:23 Troponin I 0.035 ng/mL (< 0.028) H 11/27/20 02:23 B-Natriuretic Peptide 1094.4 pg/mL (0-100) H 11/27/20 02:23 Serum Total Protein 4.9 g/dL (5.8-8.1) L 12/01/20 08:38 Albumin 2.6 g/dL (3.4-4.8) L 12/08/20 05:41 Urine Ketones Trace mg/dL (Negative) A 12/01/20 09:04 Urine Blood Negative (Negative) 12/01/20 09:04 Urine Nitrite Negative (Negative) 12/01/20 09:04 Ur Leukocyte Esterase Negative Uyen/uL (Negative) 12/01/20 09:04 Urine RBC 0-3 HPF (0-3) 11/27/20 04:37 Urine WBC 0-3 HPF (0-3) 11/27/20 04:37 Ur Squamous Epith Cells None Seen HPF (0-3) 11/27/20 04:37 Urine Bacteria None Seen HPF (None Seen) 11/27/20 04:37 Sodium 136 mmol/L (136-145) 12/08/20 05:41 Potassium 4.6 mmol/L (3.5-5.1) 12/08/20 05:41 Chloride 97 mmol/L (98-107) L 12/08/20 05:41 Carbon Dioxide 32 mmol/L (23-31) H 12/08/20 05:41 Anion Gap 12 mmol/L (10-20) 12/08/20 05:41 BUN 21 mg/dL (9.8-20.1) H 12/08/20 05:41 Creatinine 0.63 mg/dL (0.6-1.1) 12/08/20 05:41 Glucose 96 mg/dL (83-110) 12/08/20 05:41 Calcium 8.4 mg/dL (7.8-10.44) 12/08/20 05:41 Phosphorus 3.1 mg/dL (2.3-4.7) 12/08/20 05:41 Magnesium 1.4 mg/dL (1.6-2.6) L 12/08/20 05:41 Albumin 2.6 g/dL (3.4-4.8) L 12/08/20 05:41 Nephrology AP PN - Plan ASSESSMENT: Hyponatremia: Symptomatic. 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 Poor solute intake and hypokalemia are also contributory to the hyponatremia. Resolved with crystalloid, albumin and salt t ablet. Sodium is howver down to 136 with liberal free water intake Volume depletion. Improved. Hypokalemia: Repleted Hypophosphatemia. Repleted. Hypomagnesemia: recurrent Acute Encephalopathy: Most likely due to scopolamine with possible contribution from electrolyte derangement and or hypoperfusion. Acute CVA ruled out. Pancytopenia related to chemotherapy. Protein-calorie malnutrition. Dysphagia Paroxysmal atrial fib. PLAN Give 4 grams of Magnesium sulphate Decrease free water to 1500 per 24 hours Continue oral magnesium supplementation [place] oral solute intake advised. Follow electrolytes and adjust treatment as needed
--- NOTE | 2020-12-08 13:05 | PDOC.HOSPP ---
- Subjective Encounter Date: 12/08/20 Encounter Time: 10:30 Subjective: has cough mostly dry no nausea or abd pain - Objective Vital Signs & Weight: Vital Signs (12 hours) Temp Pulse Resp BP Pulse Ox 12/08/20 07:57 98.4 F 75 20 124/81 92 L 12/08/20 06:34 84 16 93 L 12/08/20 04:41 98.7 F 74 18 135/84 94 L Weight Admit Weight 127 lb 6.835 oz Weight 130 lb 4.8 oz I&O: 12/07/20 12/08/20 12/09/20 06:59 06:59 06:59 Intake Total 100 790 Balance 100 790 Result Diagrams: 12/05/20 03:58 12/08/20 05:41 Hospitalist ROS - Medication Medications: Active Medications Generic Name Dose Route Start Last Admin Trade Name Freq PRN Reason Stop Dose Admin Albuterol/Ipratropium 3 ml 11/30/20 13:00 12/08/20 06:34 Ipratropium/Albuterol Sulfate 3 Ml Neb NEB 3 ml [id number] QUINN Administration Apixaban 5 mg 11/30/20 09:00 12/08/20 09:05 Apixaban 5 Mg Tab PO 5 mg BID QUINN Administration Citalopram Hydrobromide 10 mg 12/01/20 09:00 12/08/20 09:05 Citalopram 10 Mg Tab PO 10 mg DAILY QUINN Administration Al Hydroxide/Mg Hydroxide 60 0 ml 12/03/20 17:00 12/08/20 12:22 ml/ Lidocaine HCl 30 ml/ SSP 10 ml Diphenhydramine HCl 75 mg AC QUINN Administration Cyanocobalamin 1,000 mcg 12/06/20 09:00 12/08/20 09:05 Cyanocobalamin (Vitamin B-12) 1,000 Mcg Tab PO 1,000 mcg DAILY UQINN Administration Folic Acid 1 mg 12/06/20 09:00 12/08/20 09:05 Folic Acid 1 Mg Tab PO 1 mg DAILY QUINN Administration Iron/Minerals/Multivitamins 1 tab 12/06/20 09:00 12/08/20 09:05 Multivitamin W/ Minerals 1 Tab PO 1 tab DAILY QUINN Administration Magnesium Oxide 400 mg 12/06/20 21:00 12/08/20 09:05 Magnesium Oxide 400 Mg Tab PO 400 mg BID QUINN Administration Melatonin 3 mg 12/01/20 08:37 12/02/20 21:41 Melatonin 3 Mg Tab PO 3 mg HS PRN Administration Insomnia Nebivolol 5 mg 11/30/20 09:00 12/08/20 09:05 Nebivolol Hcl 5 Mg Tab PO 5 mg DAILY QUINN Administration Nystatin 500,000 units 12/05/20 17:00 12/08/20 09:09 Nystatin 500,000 Units/5 Ml Udcup SSW 500,000 units QID QUINN Administration Ondansetron HCl 8 mg 11/30/20 14:00 12/08/20 05:17 Ondansetron Odt 8 Mg Tab PO Not Given Q8HR QUINN Pantoprazole Sodium 40 mg 12/07/20 09:00 12/08/20 09:05 Pantoprazole 40 Mg Granules Packet PO 40 mg DAILY QUINN Administration Saccharomyces Boulardii 250 mg 12/01/20 09:00 12/08/20 09:05 Saccharomyces Boulardii 250 Mg Cap PO 250 mg DAILY QUINN Administration Sodium Chloride 10 ml 11/29/20 09:00 12/08/20 09:10 Flush - Normal Saline 10 Ml Syringe IVF 10 ml Q12HR QUINN Administration Hospitalist Exam Vitals: Vital Signs (12 hours) Temp Pulse Resp BP Pulse Ox 12/08/20 07:57 98.4 F 75 20 124/81 92 L 12/08/20 06:34 84 16 93 L 12/08/20 04:41 98.7 F 74 18 135/84 94 L Weight Admit Weight 127 lb 6.835 oz Weight 130 lb 4.8 oz General Appearance: awake alert Eye: PERRL, anicteric sclera ENT: no oropharyngeal lesions, dry oral mucosa Neck: supple, no JVD Heart: RRR, no murmur Respiratory: no wheezes, no rales, rhonchi Gastrointestinal: soft, non-tender, non-distended, normal bowel sounds Extremities: no cyanosis, no edema Neurological: cranial nerve grossly intact, no focal deficits Psychiatric: normal affect, A&O x 3 Hosp A/P (1) Metabolic encephalopathy Code(s): G93.41 - METABOLIC ENCEPHALOPATHY Status: Resolved (2) SIADH (syndrome of inappropriate ADH production) Status: Resolved (3) Atrial fibrillation with rapid ventricular response Code(s): I48.91 - UNSPECIFIED ATRIAL FIBRILLATION Status: Resolved (4) COPD (chronic obstructive pulmonary disease) Status: Chronic Qualifiers: Emphysema type: unspecified (5) Lung cancer Code(s): C34.90 - MALIGNANT NEOPLASM OF UNSP PART OF UNSP BRONCHUS OR LUNG Status: Chronic Qualifiers: Laterality: unspecified laterality (6) Pulmonary embolism Code(s): I26.99 - OTHER PULMONARY EMBOLISM WITHOUT ACUTE COR PULMONALE Status: Chronic Qualifiers: Pulmonary embolism type: unspecified Chronicity: chronic Acute cor pulmonale presence: without acute cor pulmonale Qualified Code(s): I27.82 - Chronic pulmonary embolism (7) Physical deconditioning Code(s): R53.81 - OTHER MALAISE Status: Acute - Plan Awaiting placement. Hemostable. PT to mobilize as tolerated. Continue Eloquis, folic acid, B12, celexa, nebs, bystolic, will give 1 ltr NS. Her last chemotherapy was on 11/19/20 [Keytruda, Alimta, Carboplatin], has finished radiation to right pelvic area, adenocarcinoma lung stage 4. Pancytopenia has resolved, likely has chronic anemia. Echo showed EF of 53% with elevated RVSP. change O2 to humidified encourage po intake
[2020-12-08] MEDS ORDERED: Sodium Chloride 0.9% 1,000 ML IV SCH (13:15)
[2020-12-09] MEDS: Ondansetron ODT 8 MG TAB PO SCH ×3 (05:36→20:43)
[2020-12-09 06:24] LABS: Hemoglobin 10.1 g/dL (12.0-16.0); Mean Corpuscular HGB CONC 33.4 g/dL (32.0-36.0); Mean Corpuscular Hemoglobin 30.6 pg (27.0-31.0); Mean Corpuscular Volume 91.7 fL (78.0-98.0); Mean Platelet Volume 7.5 fL (7.4-10.4); Platelet Count 225 thou/uL (130-400); RBC Distribution Width 15.4 % (11.5-14.5)
[2020-12-09 06:47] LABS: Anion Gap 10 mmol/L (10-20); BUN (Urea Nitrogen) 17 mg/dL (9.8-20.1); Calc. Creatinine Clearance 78 mL/min (70-130); Calcium 7.9 mg/dL (7.8-10.44); Carbon Dioxide 28 mmol/L (23-31); Chloride 100 mmol/L (98-107); Glucose 100 mg/dL (83-110); Magnesium 1.7 mg/dL (1.6-2.6); Potassium 4.5 mmol/L (3.5-5.1); Sodium 133 mmol/L (136-145)
[2020-12-09 07:58] VITALS: TEMP 98.5
[2020-12-09] MEDS: Aluminum & Magnesium Hydroxide 60 ML, Lidocaine 2% Viscous Solution 30 ML, diphenhydrAM... SSP SCH ×3 (08:45→18:25)
[2020-12-09] MEDS: Nystatin 500,000 UNITS/5 ML UDCUP SSW SCH ×4 (08:49→20:41)
[2020-12-09] MEDS: Cyanocobalamin (Vitamin B-12) 1,000 MCG TAB PO SCH (08:50)
[2020-12-09] MEDS: Nebivolol HCl 5 MG TAB PO SCH (08:50)
[2020-12-09] MEDS: Folic Acid 1 MG TAB PO SCH (08:50)
[2020-12-09] MEDS: Saccharomyces boulardii 250 MG CAP PO SCH (08:50)
[2020-12-09] MEDS: Magnesium Oxide 400 MG TAB PO SCH ×2 (08:50→20:41)
[2020-12-09] MEDS: Apixaban 5 MG TAB PO SCH ×2 (08:50→20:41)
[2020-12-09] MEDS: Citalopram 10 MG TAB PO SCH (08:50)
[2020-12-09] MEDS: Multivitamin W/ Minerals 1 TAB PO SCH (08:50)
[2020-12-09] MEDS: Pantoprazole 40 MG GRANULES PACKET PO SCH (08:50)
--- NOTE | 2020-12-09 15:26 | PDOC.NEPPN ---
- Subjective Encounter Date: 12/09/20 Subjective: Seen and examined. Feeling stronger today. Up in chair. - Objective Vital Signs & Weight: Vital Signs (12 hours) Temp Pulse Resp BP Pulse Ox 12/09/20 13:06 78 16 12/09/20 09:11 97 12/09/20 07:57 98.5 F 78 20 123/75 97 12/09/20 06:44 74 16 94 L Weight Admit Weight 127 lb 6.835 oz Weight 130 lb 4.8 oz I&O: 12/08/20 12/09/20 12/10/20 06:59 06:59 06:59 Intake Total 790 1470 Balance 790 1470 Result Diagrams: 12/09/20 06:07 12/09/20 06:07 Nephrology ROS - Medication Medications: Active Medications Generic Name Dose Route Start Last Admin Trade Name Freq PRN Reason Stop Dose Admin Albuterol/Ipratropium 3 ml 11/30/20 13:00 12/09/20 13:06 Ipratropium/Albuterol Sulfate 3 Ml Neb NEB 3 ml [id number] QUINN Administration Apixaban 5 mg 11/30/20 09:00 12/09/20 08:50 Apixaban 5 Mg Tab PO 5 mg BID QUINN Administration Citalopram Hydrobromide 10 mg 12/01/20 09:00 12/09/20 08:50 Citalopram 10 Mg Tab PO 10 mg DAILY QUINN Administration Al Hydroxide/Mg Hydroxide 60 0 ml 12/03/20 17:00 12/09/20 12:13 ml/ Lidocaine HCl 30 ml/ SSP 10 ml Diphenhydramine HCl 75 mg AC QUINN Administration Cyanocobalamin 1,000 mcg 12/06/20 09:00 12/09/20 08:50 Cyanocobalamin (Vitamin B-12) 1,000 Mcg Tab PO 1,000 mcg DAILY QUINN Administration Folic Acid 1 mg 12/06/20 09:00 12/09/20 08:50 Folic Acid 1 Mg Tab PO 1 mg DAILY QUINN Administration Iron/Minerals/Multivitamins 1 tab 12/06/20 09:00 12/09/20 08:50 Multivitamin W/ Minerals 1 Tab PO 1 tab DAILY QUINN Administration Magnesium Oxide 400 mg 12/06/20 21:00 12/09/20 08:50 Magnesium Oxide 400 Mg Tab PO 400 mg BID QUINN Administration Melatonin 3 mg 12/01/20 08:37 12/02/20 21:41 Melatonin 3 Mg Tab PO 3 mg HS PRN Administration Insomnia Nebivolol 5 mg 11/30/20 09:00 12/09/20 08:50 Nebivolol Hcl 5 Mg Tab PO 5 mg DAILY QUINN Administration Nystatin 500,000 units 12/05/20 17:00 12/09/20 13:36 Nystatin 500,000 Units/5 Ml Udcup SSW 500,000 units QID QUINN Administration Ondansetron HCl 8 mg 11/30/20 14:00 12/09/20 13:37 Ondansetron Odt 8 Mg Tab PO Not Given Q8HR QUINN Pantoprazole Sodium 40 mg 12/07/20 09:00 12/09/20 08:50 Pantoprazole 40 Mg Granules Packet PO 40 mg DAILY QUINN Administration Saccharomyces Boulardii 250 mg 12/01/20 09:00 12/09/20 08:50 Saccharomyces Boulardii 250 Mg Cap PO 250 mg DAILY QUINN Administration Sodium Chloride 10 ml 11/29/20 09:00 12/09/20 08:51 Flush - Normal Saline 10 Ml Syringe IVF 10 ml Q12HR QUINN Administration - Exam General Appearance: awake alert General - other findings: fatigued and chronically ill looking. Eye: anicteric sclera ENT: normocephalic atraumatic, dry oral mucosa Neck: symmetric Cardiovascular: RRR Gastrointestinal: soft, non-tender, non-distended, normal bowel sounds Extremities: no edema Neurological: CN's grossly intact, no focal deficits PSYCH: A&O x 3 Nephrology Results - Labs Result Diagrams: 12/09/20 06:07 12/09/20 06:07 Lab results: WBC 5.0 thou/uL (4.8-10.8) 12/09/20 06:07 Hgb 10.1 g/dL (12.0-16.0) L 12/09/20 06:07 Hct 30.3 % (36.0-47.0) L 12/09/20 06:07 MCV 91.7 fL (78.0-98.0) 12/09/20 06:07 Plt Count 225 thou/uL (130-400) 12/09/20 06:07 Neutrophils % 54.4 % (42.0-75.0) 12/05/20 03:58 Band Neuts % (Manual) 8 % (5-11) 12/04/20 06:12 ABG pH 7.48 (7.35-7.45) H 12/01/20 16:00 ABG pCO2 44.6 mmHg (35.0-45.0) 12/01/20 16:00 ABG pO2 65.4 mmHg (> 70.0) 12/01/20 16:00 Sodium 133 mmol/L (136-145) L 12/09/20 06:07 Potassium 4.5 mmol/L (3.5-5.1) 12/09/20 06:07 Chloride 100 mmol/L (98-107) 12/09/20 06:07 Carbon Dioxide 28 mmol/L (23-31) 12/09/20 06:07 BUN 17 mg/dL (9.8-20.1) 12/09/20 06:07 Creatinine 0.62 mg/dL (0.6-1.1) 12/09/20 06:07 Glucose 100 mg/dL (83-110) 12/09/20 06:07 Lactic Acid 1.3 mmol/L (0.5-2.2) 12/01/20 08:38 Calcium 7.9 mg/dL (7.8-10.44) 12/09/20 06:07 Total Bilirubin 0.6 mg/dL (0.2-1.2) 12/01/20 08:38 AST 26 U/L (5-34) 12/01/20 08:38 ALT 18 U/L (8-55) 12/01/20 08:38 Alkaline Phosphatase 60 U/L (40-110) 12/01/20 08:38 Ammonia 21 umol/L (18-72) 12/01/20 08:38 CK-MB (CK-2) 0.4 ng/mL (0-6.6) 11/27/20 02:23 Troponin I 0.035 ng/mL (< 0.028) H 11/27/20 02:23 B-Natriuretic Peptide 1094.4 pg/mL (0-100) H 11/27/20 02:23 Serum Total Protein 4.9 g/dL (5.8-8.1) L 12/01/20 08:38 Albumin 2.6 g/dL (3.4-4.8) L 12/08/20 05:41 Urine Ketones Trace mg/dL (Negative) A 12/01/20 09:04 Urine Blood Negative (Negative) 12/01/20 09:04 Urine Nitrite Negative (Negative) 12/01/20 09:04 Ur Leukocyte Esterase Negative Uyen/uL (Negative) 12/01/20 09:04 Urine RBC 0-3 HPF (0-3) 11/27/20 04:37 Urine WBC 0-3 HPF (0-3) 11/27/20 04:37 Ur Squamous Epith Cells None Seen HPF (0-3) 11/27/20 04:37 Urine Bacteria None Seen HPF (None Seen) 11/27/20 04:37 Sodium 133 mmol/L (136-145) L 12/09/20 06:07 Potassium 4.5 mmol/L (3.5-5.1) 12/09/20 06:07 Chloride 100 mmol/L (98-107) 12/09/20 06:07 Carbon Dioxide 28 mmol/L (23-31) 12/09/20 06:07 Anion Gap 10 mmol/L (10-20) 12/09/20 06:07 BUN 17 mg/dL (9.8-20.1) 12/09/20 06:07 Creatinine 0.62 mg/dL (0.6-1.1) 12/09/20 06:07 Glucose 100 mg/dL (83-110) 12/09/20 06:07 Calcium 7.9 mg/dL (7.8-10.44) 12/09/20 06:07 Phosphorus 3.1 mg/dL (2.3-4.7) 12/08/20 05:41 Magnesium 1.7 mg/dL (1.6-2.6) 12/09/20 06:07 Albumin 2.6 g/dL (3.4-4.8) L 12/08/20 05:41 Nephrology AP PN - Plan ASSESSMENT: Hyponatremia: Symptomatic. 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 Poor solute intake and hypokalemia are also contributory to the hyponatremia. Resolved with crystalloid, albumin and salt tablet. Sodium is however down to 133 today. Volume depletion. Improved. Hypokalemia: Repleted Hypophosphatemia. Repleted. Hypomagnesemia: recurrent Acute Encephalopathy: Most likely due to scopolamine with possible contribution from electrolyte derangement and or hypoperfusion. Acute CVA ruled out. Pancytopenia related to chemotherapy. Protein-calorie malnutrition. Dysphagia Paroxysmal atrial fib. PLAN Restart salt tablet. Decrease free water to 1200 per 24 hours Continue oral magnesium supplementation [place] oral solute intake advised. Can be discharged from nephrology point of view. Will follow patient at the rehab if needed.
--- NOTE | 2020-12-09 18:15 | PDOC.DS.DS ---
Provider Date of Admission: 11/27/20 05:20 Date of Discharge: 12/09/20 Admitting Provider: Deshaun Flores MD Consultations: Nephrology (Dr. Karthik Stubbs) Primary Care Physician: Unknown Course Hospital Course: Discharge Diagnoses: 1. Generalized weakness possibly secondary to hyponatremia 2. Frequent falls 3. History of lung cancer Brief HPI: This is a 70 year old female with past medical history of lung cancer on chemotherapy who presented to the ER with generalized weakness and frequent falls. The patient states that shehit her head but did not pass out. SHe had p oor oral intake. Upon presentation to the ER, her sodium was 124. She was started on IV fluids and admitted for further workup Hospital Course 1. Hyponatremia: the patient received IV fluids on 11/27. Her sodium improved to 126. She was also given albumin with improvement. Her sodium then dropped again so she was started on salt tablets on 11/28. Her sodium improved to 131. She was started on a fluid restriction and her sodium normalized and ranged from 136 to 141. Her sodium then dropped again to 136 on 12/08, she was restarted on IV fluids 70 ml/hour. Her sodium dropped to 133 but her mental status was normal and she had no dizziness or lightheadedness. I discussed with nephrology, he recommended 1.2L free water restriction on discharge and salt tablets 1 gram tid. 2. Acute encephalopathy : the patient had hyponatremia on admission, but during her hospital course she had episodes of hallucination, agitation and unintelligible speech. CT head and MRI of the brain showed no stroke. EEG was done and showed mild generalized nonspecific cerebral dysfunction. The patient's encephalopathy improved eventually and she was oriented times three on discharge. She will continue with PT, OT and speech upon discharge. 3. Atrial fibrillation: she had some afib with RVR in the hospital which resolved. Cardiology saw the patient and did not think she needed cardioversion. She remained on nebivolol and her heart rate was controlled. She will continue on eliquis as an outpatient Pertinent Studies: CT brain: no acute process Chest X ray 11/27: left upper lobe/left perihilar density Ct brain 12/01: no acute abnormalities Brain MRI 12/01: no acute abnormalities Resuscitation Status: 12/06/20 08:43 Resuscitation Status Routine Resuscitation Status: FULL: Full Resuscitation Lab Results: 12/09/20 06:07 12/09/20 06:07 Abnormal Lab Results - Last 48 hrs 12/08/20 05:41: Chloride 97 L, Carbon Dioxide 32 H, BUN 21 H, Magnesium 1.4 L, Albumin 2.6 L 12/09/20 06:07: Sodium 133 L 12/09/20 06:07: RBC 3.30 L, Hgb 10.1 L, Hct 30.3 L, RDW 15.4 H Vitals: Vital Signs (12 hours) Temp Pulse Resp BP Pulse Ox 12/09/20 13:06 78 16 12/09/20 09:11 97 12/09/20 07:57 98.5 F 78 20 123/75 97 12/09/20 06:44 74 16 94 L Weight Admit Weight 127 lb 6.835 oz Weight 130 lb 4.8 oz Physical Exam: The patient was seen and examined on the day of discharge. General Appearance: NAD, awake alert Eye: PERRL, anicteric sclera ENT: normocephalic atraumatic, no oropharyngeal lesions Neck: no JVD Respiratory: CTAB, no wheezes, no rales, no ronchi Cardiovascular: RRR, no murmur, no gallops, no rubs Gastrointestinal: soft, non-tender, non-distended, normal bowel sounds Extremities: no cyanosis, no clubbing, no edema Skin: normal turgor, no lesions, no rashes Neurological: cranial nerve grossly intact, normal sensation to touch, no weakness Problem Plan of Treatment: d/c to rehab. F/u repeat BMP in a week Plan Prescriptions: Sodium Chloride 1 gm PO TID #90 tab Home Medications: Medication Instructions Recorded Confirmed Type Citalopram [CeleXA] 10 mg PO DAILY 11/23/19 11/27/20 History Nebivolol HCl [Bystolic] 5 mg PO DAILY 11/23/19 11/27/20 History Umeclidinium Brm/Vilanterol Tr 1 inh IH DAILY 11/23/19 11/27/20 History [Anoro Ellipta] Albuterol Sulfate HFA (OR) 2 puff INH Q4H #1 inh 10/28/20 11/27/20 Rx [Proventil Hfa (or)] Apixaban [Eliquis] 5 mg PO BID #60 tablet 10/28/20 11/27/20 Rx Saccharomyces boulardii [Florastor] 250 mg PO DAILY #30 cap 10/28/20 11/27/20 Rx Folic Acid [Folvite] 1 mg PO DAILY 11/27/20 11/27/20 History Ondansetron [Zofran ODT] 8 mg PO Q8HR 11/27/20 11/27/20 History Prochlorperazine Maleate 10 mg PO Q6HR 11/27/20 11/27/20 History Sennosides/Docusate Sodium 2 tab PO BIDPRN PRN tab 12/09/20 Rx [Senokot S] Sodium Chloride 1 gm PO TID #90 tab 12/09/20 Rx Allergies: azithromycin Allergy (Verified 10/24/20 17:40) Penicillins Allergy (Verified 10/21/20 23:18) itching Discharge Instructions:: You presented with hyponatremia. You received IV fluids, lasix and salt tablets. Your sodium improved to 133. Please continue 1.2L fluid restriction. Take salt tablets three times daily. Follow up with your primary care doctor in a week. You will be discharged to rehab. Please repeat BMP in a week. You had multiple CT scans of your head that showed no stroke or brain lesions. Activity:: Activity as Tolerated Nourishment:: Heart Healthy Diet Referrals: Krunal Osman MD [Active] - Nidhi Bolaños MD [Active] - Shelly Nunez APRN [Allied Health Professional] - Evelyne Angeles MD [Active] - Unknown,Unknown [Primary Care Provider] - Disposition: HOME Quality CORE MEASURES:: N/A
[2020-12-09 18:37] VITALS: BP 134/74
== END 2020-12-09 20:50 | DRG 643 ==
LOC: ERS 00:13 → ERHOLD 05:20 → 2NO 18:11 → T4-A 12-06 21:17
PROVIDERS: ADMIT Student in an Organized Health Care Education/Training Program; ATTEND Internal Medicine
DX: E22.2 Syndrome of inappropriate secretion of antidiuretic hormone (principal); G93.41 Metabolic encephalopathy; D61.810 Antineoplastic chemotherapy induced pancytopenia; Z20.822 Contact with and (suspected) exposure to COVID-19; C34.90 Malignant neoplasm of unspecified part of unspecified bronchus or lung; E46 Unspecified protein-calorie malnutrition; I27.82 Chronic pulmonary embolism; F05 Delirium due to known physiological condition; R29.6 Repeated falls; J44.9 Chronic obstructive pulmonary disease, unspecified; F41.9 Anxiety disorder, unspecified; E86.9 Volume depletion, unspecified; T38.6X5A Adverse effect of antigonadotrophins, antiestrogens, antiandrogens, not elsewhere classified, initial encounter; E87.6 Hypokalemia; E83.42 Hypomagnesemia; R13.10 Dysphagia, unspecified; I95.9 Hypotension, unspecified; I48.0 Paroxysmal atrial fibrillation; Z99.81 Dependence on supplemental oxygen; Z86.718 Personal history of other venous thrombosis and embolism; Z87.891 Personal history of nicotine dependence; Z88.0 Allergy status to penicillin; Z88.1 Allergy status to other antibiotic agents; Z79.899 Other long term (current) drug therapy; Z68.22 Body mass index [BMI] 22.0-22.9, adult; Z79.01 Long term (current) use of anticoagulants
CPT/HCPCS: 0240U; 36415; 36416; 36600; 51701; 70450; 70551; 71045; 80048; 80053; 80069; 80076; 81003; 81015; 82140; 82436; 82553; 82805; 83605; 83735; 83880; 83930; 83935; 84100; 84133; 84300; 84484; 85025; 85027; 93005; 93010; 93306; 95712; 95819; 95957; J1160; J1940; J3475; J3490; J7042; J7050; J7611; J7620; P9047; Q0162; Q0163

== ENCOUNTER 2021-01-01 13:06 | Outpatient (CLI) | payer MEDICARE | END 2021-01-01 13:07 | disposition home or self-care (01) | LOC: BICRAD 13:06 | PROVIDERS: ATTEND Internal Medicine Critical Care Medicine | DX: R06.00 Dyspnea, unspecified (principal) | CPT/HCPCS: 71046 ==

== ENCOUNTER 2021-02-11 18:36 | Inpatient (IN) | payer MEDICARE ==
[~2021-02-11 18:36] MED LIST changes: -Fentanyl 100 MCG/2 ML VIAL ONE; -Midazolam HCl 2 mg/2 ml Vial ONE; -Sodium Bicarbonate 2.5 MEQ/5 ML VIAL ONE
[2021-02-11 19:23] LABS: Hemoglobin 9.3 g/dL (12.0-16.0); Mean Corpuscular HGB CONC 32.8 g/dL (32.0-36.0); Mean Corpuscular Hemoglobin 32.9 pg (27.0-31.0); Mean Platelet Volume 12.9 fL (7.4-10.4); Platelet Count 18 thou/uL (130-400); Red Blood Cell (RBC) Count 2.82 mill/uL (4.20-5.40); White Blood Cell (WBC) Count 23.3 thou/uL (4.8-10.8)
[2021-02-11 19:27] LABS: ALT (SGPT) 10 U/L (8-55); AST (SGOT) 27 U/L (5-34); Albumin 3.3 g/dL (3.4-4.8); Alkaline Phosphatase 126 U/L (40-110); Anion Gap 13 mmol/L (10-20); BUN (Urea Nitrogen) 31 mg/dL (9.8-20.1); Bilirubin, Total 0.6 mg/dL (0.2-1.2); CK (CPK) 34 U/L (29-168); Calc. Creatinine Clearance 0 mL/min (70-130); Calcium 9.6 mg/dL (7.8-10.44); Carbon Dioxide 34 mmol/L (23-31); Chloride 97 mmol/L (98-107); Globulin 2.8 g/dL (2.4-3.5); Glucose 133 mg/dL (83-110); Potassium 4.3 mmol/L (3.5-5.1); Protein, Total 6.1 g/dL (5.8-8.1); Sodium 140 mmol/L (136-145)
[2021-02-11 19:49] LABS: CKMB 2.3 ng/mL (0-6.6)
[2021-02-11 19:57] LABS: Anisocytosis SLIGHT = 6-15 cells (100X) (0-5/hpf); Band 47 % (5-11); Lymphocytes 15 % (21-51); MDiff Complete? YES; Metamyelocyte 3 % (0-0); Monocytes 3 % (0-10); Myelocyte 7 % (0-0); Neutrophil 20 % (42-75); Platelet Morphology Comment Appears Decreased; Reactive Lymphocytes 5 % (0-10); Reflex for Review?? YES
[2021-02-11] MEDS ORDERED: Cefepime 2 GM VIAL ONE (20:16)
[2021-02-11] MEDS ORDERED: Acetaminophen 325 MG TAB PO PRN (20:51)
[2021-02-11] MEDS ORDERED: HYDROcodone/Acetaminophen 5/325 mg Tablet PO PRN (20:51)
[2021-02-11] MEDS ORDERED: Guaifenesin DM 100-10/5 ML UDCUP PO PRN (20:51)
[2021-02-11] MEDS ORDERED: Bisacodyl 10 MG SUPP PR PRN (20:51)
[2021-02-11] MEDS ORDERED: Loperamide HCl 2 MG CAP PO PRN (20:51)
[2021-02-11] MEDS ORDERED: Calcium Carbonate 500 MG ChewTAB PO PRN (20:51)
[2021-02-11] MEDS ORDERED: Metoclopramide HCl 10 MG/2 ML VIAL IVP PRN (20:55)
[2021-02-11] MEDS ORDERED: Vancomycin 1 GM/200 ML BAG ONE (21:03)
[2021-02-11 22:20] LABS: Lactic Acid 1.7 mmol/L (0.5-2.2)
[2021-02-11 23:02] VITALS: BMI 23.9
[2021-02-11 23:57] LABS: Bacteria/HPF None Seen HPF (None Seen); Bilirubin Negative (Negative); Blood, Urine Negative (Negative); Clarity Clear (Clear); Glucose, Urine (Dipstick) Normal (Negative); Ketone, Urine Negative (Negative); Leukocyte Negative Leu/uL (Negative); Nitrite Negative (Negative); Protein, Urine (Dipstick) 70 mg/dL (Neg-Trace); Squamous Epithelial 0-3 HPF (0-3); Urobilinogen Normal mg/dL (Less than 2)
[2021-02-12] MEDS ORDERED: Melatonin 3 MG TAB PO SCH (00:30)
[2021-02-12] MEDS: Famotidine 20 MG TAB PO SCH ×3 (00:37→20:33)
[2021-02-12] MEDS: methylPREDNISolone Sod Succ 40 MG VIAL IVP SCH ×4 (00:38→18:04)
[2021-02-12] MEDS: guaiFENesin ER 600 MG TAB PO SCH ×3 (01:01→20:34)
[2021-02-12 01:40] LABS: Troponin I 0.036 ng/mL (< 0.028)
[2021-02-12] MEDS: Sodium Chloride 0.9% 1,000 ML IV SCH ×2 (02:34→15:18)
[2021-02-12 04:53] LABS: Hemoglobin 8.3 g/dL (12.0-16.0); Mean Corpuscular HGB CONC 32.6 g/dL (32.0-36.0); Mean Corpuscular Hemoglobin 32.7 pg (27.0-31.0); Mean Platelet Volume 12.6 fL (7.4-10.4); Platelet Count 16 thou/uL (130-400); Red Blood Cell (RBC) Count 2.53 mill/uL (4.20-5.40)
[2021-02-12 05:04] LABS: Lactic Acid 1.8 mmol/L (0.5-2.2)
[2021-02-12 05:07] LABS: ALT (SGPT) 9 U/L (8-55); AST (SGOT) 27 U/L (5-34); Albumin 2.9 g/dL (3.4-4.8); Alkaline Phosphatase 112 U/L (40-110); Anion Gap 12 mmol/L (10-20); BUN (Urea Nitrogen) 29 mg/dL (9.8-20.1); Bilirubin, Total 0.5 mg/dL (0.2-1.2); Calc. Creatinine Clearance 70 mL/min (70-130); Calcium 8.5 mg/dL (7.8-10.44); Carbon Dioxide 26 mmol/L (23-31); Chloride 102 mmol/L (98-107); Globulin 2.5 g/dL (2.4-3.5); Glucose 136 mg/dL (83-110); Potassium 4.7 mmol/L (3.5-5.1); Protein, Total 5.4 g/dL (5.8-8.1); Sodium 135 mmol/L (136-145)
[2021-02-12 05:27] LABS: Band 22 % (5-11); Hypochromia SLIGHT = 6-15 cells (100X) (0-5/hpf); Lymphocytes 7 % (21-51); MDiff Complete? YES; Metamyelocyte 3 % (0-0); Monocytes 3 % (0-10); Neutrophil 65 % (42-75); Nucleated RBC 1 % (0); Platelet Morphology Comment Appears Decreased
[2021-02-12] MEDS: Budesonide 0.5 MG/2 ML NEB NEB SCH ×2 (07:16→18:56)
[2021-02-12] MEDS ORDERED: Ipratropium/Albuterol Sulfate 4 GM AER IH PRN (07:18)
[2021-02-12 08:58] LABS: SARS-CoV-2 PCR NAA for Saliva Not Detected (NotDetected)
[2021-02-12] MEDS: Ipratropium/Albuterol Sulfate 4 GM AER IH SCH ×4 (10:51→21:51)
[2021-02-12] MEDS: VANCOMYCIN 1.25 GM/250 ML BAG 1.25 GM in Premix Bag 1 BAG IVPB SCH (18:04)
[2021-02-13] MEDS: methylPREDNISolone Sod Succ 40 MG VIAL IVP SCH ×5 (00:44→23:19)
[2021-02-13] MEDS: Ipratropium/Albuterol Sulfate 4 GM AER IH SCH ×6 (02:03→22:51)
[2021-02-13 04:49] LABS: Hemoglobin 7.9 g/dL (12.0-16.0); Mean Corpuscular HGB CONC 31.4 g/dL (32.0-36.0); Mean Corpuscular Hemoglobin 31.5 pg (27.0-31.0); Mean Platelet Volume 11.3 fL (7.4-10.4); Platelet Count 25 thou/uL (130-400); RBC Distribution Width 17.1 % (11.5-14.5); Red Blood Cell (RBC) Count 2.51 mill/uL (4.20-5.40); White Blood Cell (WBC) Count 34.2 thou/uL (4.8-10.8)
[2021-02-13 05:07] LABS: Band 1 % (5-11); Eosinophils 1 % (0-10); Lymphocytes 5 % (21-51); MDiff Complete? YES; Metamyelocyte 6 % (0-0); Monocytes 9 % (0-10); Neutrophil 77 % (42-75); Platelet Morphology Comment Appears Decreased; Reactive Lymphocytes 1 % (0-10)
[2021-02-13 05:09] LABS: Anion Gap 14 mmol/L (10-20); BUN (Urea Nitrogen) 28 mg/dL (9.8-20.1); Calc. Creatinine Clearance 70 mL/min (70-130); Carbon Dioxide 23 mmol/L (23-31); Chloride 104 mmol/L (98-107); Glucose 145 mg/dL (83-110); Potassium 4.1 mmol/L (3.5-5.1); Sodium 137 mmol/L (136-145)
[2021-02-13] MEDS: Budesonide 0.5 MG/2 ML NEB NEB SCH ×2 (07:25→19:29)
[2021-02-13] MEDS: Famotidine 20 MG TAB PO SCH ×2 (09:16→21:24)
[2021-02-13] MEDS: guaiFENesin ER 600 MG TAB PO SCH ×3 (09:17→21:25)
[2021-02-13] MEDS: Sodium Chloride 0.9% 1,000 ML IV SCH ×2 (09:48→23:44)
[2021-02-13] MEDS: VANCOMYCIN 1.25 GM/250 ML BAG 1.25 GM in Premix Bag 1 BAG IVPB SCH ×2 (17:24→18:00)
[2021-02-13 17:49] LABS: Vancomycin, Trough 8.6 ug/mL
[2021-02-13] MEDS: cycloSPORINE 0.05% Ophthalmic Droperette EA EYE SCH (21:24)
[2021-02-14] MEDS: Ipratropium/Albuterol Sulfate 4 GM AER IH SCH ×5 (03:36→19:30)
[2021-02-14] MEDS: VANCOMYCIN 1.25 GM/250 ML BAG 1.25 GM in Premix Bag 1 BAG IVPB SCH ×2 (05:19→17:51)
[2021-02-14] MEDS: methylPREDNISolone Sod Succ 40 MG VIAL IVP SCH ×4 (05:20→23:14)
[2021-02-14 05:45] LABS: Anion Gap 13 mmol/L (10-20); BUN (Urea Nitrogen) 32 mg/dL (9.8-20.1); Calc. Creatinine Clearance 73 mL/min (70-130); Calcium 8.7 mg/dL (7.8-10.44); Carbon Dioxide 25 mmol/L (23-31); Chloride 104 mmol/L (98-107); Glucose 115 mg/dL (83-110); Magnesium 1.6 mg/dL (1.6-2.6); Potassium 4.4 mmol/L (3.5-5.1); Sodium 138 mmol/L (136-145)
[2021-02-14 05:57] LABS: Anisocytosis SLIGHT = 6-15 cells (100X) (0-5/hpf); Band 36 % (5-11); Elliptocytes SLIGHT = 2-5 cells (100X) (0-1/hpf); Hemoglobin 7.6 g/dL (12.0-16.0); Lymphocytes 11 % (21-51); MDiff Complete? YES; Mean Corpuscular HGB CONC 31.7 g/dL (32.0-36.0); Mean Corpuscular Hemoglobin 31.8 pg (27.0-31.0); Mean Platelet Volume 11.6 fL (7.4-10.4); Metamyelocyte 5 % (0-0); Monocytes 4 % (0-10); Myelocyte 5 % (0-0); Neutrophil 39 % (42-75); Ovalocytes SLIGHT = 2-5 cells (100X) (0-1/hpf); Platelet Count 30 thou/uL (130-400); Platelet Morphology Comment Appears Decreased; RBC Distribution Width 17.3 % (11.5-14.5); Red Blood Cell (RBC) Count 2.38 mill/uL (4.20-5.40); Toxic Granulation SLIGHT; White Blood Cell (WBC) Count 46.1 thou/uL (4.8-10.8)
[2021-02-14] MEDS: cycloSPORINE 0.05% Ophthalmic Droperette EA EYE SCH ×2 (07:45→20:56)
[2021-02-14] MEDS: Famotidine 20 MG TAB PO SCH ×2 (07:45→20:57)
[2021-02-14] MEDS: guaiFENesin ER 600 MG TAB PO SCH ×2 (07:46→20:57)
[2021-02-14] MEDS: Budesonide 0.5 MG/2 ML NEB NEB SCH ×2 (08:16→19:28)
[2021-02-14] MEDS: Senokot S 8.6-50 MG TAB PO PRN (11:08)
[2021-02-15] MEDS: Ipratropium/Albuterol Sulfate 4 GM AER IH SCH ×6 (03:42→20:27)
[2021-02-15] MEDS: VANCOMYCIN 1.25 GM/250 ML BAG 1.25 GM in Premix Bag 1 BAG IVPB SCH ×2 (04:59→17:56)
[2021-02-15] MEDS: methylPREDNISolone Sod Succ 40 MG VIAL IVP SCH ×3 (04:59→21:19)
[2021-02-15 06:11] LABS: Hemoglobin 7.9 g/dL (12.0-16.0); Mean Corpuscular HGB CONC 30.5 g/dL (32.0-36.0); Mean Corpuscular Hemoglobin 30.5 pg (27.0-31.0); Mean Corpuscular Volume 99.7 fL (78.0-98.0); Mean Platelet Volume 5.8 fL (7.4-10.4); Platelet Count 54 thou/uL (130-400); RBC Distribution Width 17.3 % (11.5-14.5); Red Blood Cell (RBC) Count 2.58 mill/uL (4.20-5.40)
[2021-02-15 06:25] LABS: Band 39 % (5-11); Lymphocytes 4 % (21-51); MDiff Complete? YES; Metamyelocyte 6 % (0-0); Monocytes 3 % (0-10); Myelocyte 14 % (0-0); Neutrophil 34 % (42-75); Platelet Morphology Comment Appears Decreased; Toxic Granulation SLIGHT; White Blood Cell (WBC) Count 63.8 thou/uL (4.8-10.8)
[2021-02-15] MEDS: Budesonide 0.5 MG/2 ML NEB NEB SCH ×2 (07:03→20:27)
[2021-02-15] MEDS: Famotidine 20 MG TAB PO SCH ×2 (09:16→21:17)
[2021-02-15] MEDS: guaiFENesin ER 600 MG TAB PO SCH (09:16)
[2021-02-15] MEDS: cycloSPORINE 0.05% Ophthalmic Droperette EA EYE SCH ×2 (09:16→21:18)
[2021-02-15] MEDS: Senokot S 8.6-50 MG TAB PO PRN (09:16)
[2021-02-15] MEDS: Apixaban 5 MG TAB PO SCH ×2 (09:19→21:17)
[2021-02-15] MEDS ORDERED: Polyethylene Glycol 3350 17 GM Packet PO PRN (12:16)
[2021-02-15 17:54] LABS: Vancomycin, Trough 30.1 ug/mL
[2021-02-15] MEDS ORDERED: VANCOMYCIN 1.25 GM/250 ML BAG 1.25 GM in Premix Bag 1 BAG IVPB SCH (18:15)
[2021-02-16] MEDS: Ipratropium/Albuterol Sulfate 4 GM AER IH SCH ×7 (00:15→23:59)
[2021-02-16 05:13] LABS: ALT (SGPT) 23 U/L (8-55); AST (SGOT) 63 U/L (5-34); Albumin 2.9 g/dL (3.4-4.8); Alkaline Phosphatase 122 U/L (40-110); Anion Gap 12 mmol/L (10-20); BUN (Urea Nitrogen) 41 mg/dL (9.8-20.1); Bilirubin, Total 0.7 mg/dL (0.2-1.2); Calc. Creatinine Clearance 72 mL/min (70-130); Calcium 8.8 mg/dL (7.8-10.44); Carbon Dioxide 28 mmol/L (23-31); Chloride 103 mmol/L (98-107); Globulin 2.1 g/dL (2.4-3.5); Glucose 117 mg/dL (83-110); Potassium 4.6 mmol/L (3.5-5.1); Sodium 138 mmol/L (136-145)
[2021-02-16 05:43] LABS: Hemoglobin 7.4 g/dL (12.0-16.0); Mean Corpuscular HGB CONC 31.1 g/dL (32.0-36.0); Mean Corpuscular Hemoglobin 30.9 pg (27.0-31.0); Mean Corpuscular Volume 99.2 fL (78.0-98.0); Mean Platelet Volume 10.3 fL (7.4-10.4); Platelet Count 77 thou/uL (130-400); RBC Distribution Width 17.3 % (11.5-14.5); Red Blood Cell (RBC) Count 2.39 mill/uL (4.20-5.40); White Blood Cell (WBC) Count 75.2 thou/uL (4.8-10.8)
[2021-02-16] MEDS ORDERED: methylPREDNISolone Sod Succ 40 MG VIAL IVP SCH (06:00)
[2021-02-16] MEDS: Budesonide 0.5 MG/2 ML NEB NEB SCH ×2 (06:48→19:44)
[2021-02-16 07:30] LABS: Vancomycin, Random 21.2 ug/mL (See Comment)
[2021-02-16] MEDS: methylPREDNISolone Sod Succ 40 MG VIAL IVP SCH (09:37)
[2021-02-16] MEDS: Famotidine 20 MG TAB PO SCH ×2 (09:37→20:54)
[2021-02-16] MEDS: Apixaban 5 MG TAB PO SCH ×2 (09:37→20:54)
[2021-02-16] MEDS: cycloSPORINE 0.05% Ophthalmic Droperette EA EYE SCH ×2 (09:40→20:54)
[2021-02-16] MEDS: Vancomycin HCl 750 MG in Sodium Chloride 0.9% 250 ML 250 ML IVPB SCH ×2 (10:59→22:44)
[2021-02-16] MEDS ORDERED: Cefepime 2 GM in Sodium Chloride 0.9% 100 ML IVPB SCH (19:00)
[2021-02-17] MEDS: Ipratropium/Albuterol Sulfate 4 GM AER IH SCH ×6 (04:24→21:47)
[2021-02-17] MEDS: methylPREDNISolone Sod Succ 40 MG VIAL IVP SCH (05:34)
[2021-02-17 05:47] LABS: Hemoglobin 7.7 g/dL (12.0-16.0); Mean Corpuscular HGB CONC 30.7 g/dL (32.0-36.0); Mean Corpuscular Hemoglobin 30.6 pg (27.0-31.0); Mean Corpuscular Volume 99.7 fL (78.0-98.0); Platelet Count 122 thou/uL (130-400); RBC Distribution Width 17.7 % (11.5-14.5); Red Blood Cell (RBC) Count 2.53 mill/uL (4.20-5.40); White Blood Cell (WBC) Count 85.4 thou/uL (4.8-10.8)
[2021-02-17 05:58] LABS: ALT (SGPT) 28 U/L (8-55); AST (SGOT) 59 U/L (5-34); Albumin 2.9 g/dL (3.4-4.8); Alkaline Phosphatase 122 U/L (40-110); Bilirubin, Direct 0.5 mg/dL (0.1-0.3); Bilirubin, Total 0.8 mg/dL (0.2-1.2); Protein, Total 4.9 g/dL (5.8-8.1)
[2021-02-17] MEDS: Budesonide 0.5 MG/2 ML NEB NEB SCH ×2 (06:54→18:21)
[2021-02-17] MEDS: Famotidine 20 MG TAB PO SCH ×2 (08:22→21:31)
[2021-02-17] MEDS: cycloSPORINE 0.05% Ophthalmic Droperette EA EYE SCH ×2 (08:22→21:31)
[2021-02-17] MEDS: Apixaban 5 MG TAB PO SCH ×2 (08:22→21:31)
[2021-02-17] MEDS: Cefepime 2 GM in Sodium Chloride 0.9% 100 ML IVPB SCH ×2 (08:23→20:23)
[2021-02-17] MEDS ORDERED: Temazepam 15 MG CAP PO PRN (09:06)
[2021-02-17] MEDS: Vancomycin HCl 750 MG in Sodium Chloride 0.9% 250 ML 250 ML IVPB SCH (11:25)
[2021-02-17] MEDS ORDERED: Folic Acid 1 MG TAB PO SCH (13:00)
[2021-02-18 01:04] LABS: Vancomycin, Trough 19.8 ug/mL
[2021-02-18] MEDS: Vancomycin HCl 750 MG in Sodium Chloride 0.9% 250 ML 250 ML IVPB SCH (01:11)
[2021-02-18] MEDS: Vancomycin HCl 500 MG in Sodium Chloride 0.9% 100 ML IVPB SCH ×2 (01:41→17:55)
[2021-02-18] MEDS: Ipratropium/Albuterol Sulfate 4 GM AER IH SCH ×6 (01:55→22:04)
[2021-02-18] MEDS: methylPREDNISolone Sod Succ 40 MG VIAL IVP SCH (05:52)
[2021-02-18 06:09] LABS: Hemoglobin 7.7 g/dL (12.0-16.0); Mean Corpuscular HGB CONC 31.4 g/dL (32.0-36.0); Mean Corpuscular Hemoglobin 31.2 pg (27.0-31.0); Mean Corpuscular Volume 99.4 fL (78.0-98.0); Mean Platelet Volume 9.5 fL (7.4-10.4); Platelet Count 166 thou/uL (130-400); RBC Distribution Width 17.8 % (11.5-14.5); Red Blood Cell (RBC) Count 2.48 mill/uL (4.20-5.40); White Blood Cell (WBC) Count 79.7 thou/uL (4.8-10.8)
[2021-02-18 06:27] LABS: ALT (SGPT) 26 U/L (8-55); AST (SGOT) 61 U/L (5-34); Albumin 2.9 g/dL (3.4-4.8); Alkaline Phosphatase 127 U/L (40-110); Anion Gap 11 mmol/L (10-20); BUN (Urea Nitrogen) 39 mg/dL (9.8-20.1); Bilirubin, Total 0.7 mg/dL (0.2-1.2); Calc. Creatinine Clearance 76 mL/min (70-130); Calcium 8.6 mg/dL (7.8-10.44); Carbon Dioxide 27 mmol/L (23-31); Chloride 104 mmol/L (98-107); Glucose 90 mg/dL (83-110); Potassium 4.4 mmol/L (3.5-5.1); Protein, Total 4.9 g/dL (5.8-8.1); Sodium 138 mmol/L (136-145)
[2021-02-18] MEDS: Budesonide 0.5 MG/2 ML NEB NEB SCH ×2 (07:08→18:39)
[2021-02-18] MEDS: Cefepime 2 GM in Sodium Chloride 0.9% 100 ML IVPB SCH ×2 (08:49→20:51)
[2021-02-18] MEDS: Famotidine 20 MG TAB PO SCH ×2 (08:53→20:50)
[2021-02-18] MEDS: Apixaban 5 MG TAB PO SCH ×2 (08:53→20:51)
[2021-02-18] MEDS: cycloSPORINE 0.05% Ophthalmic Droperette EA EYE SCH ×2 (08:54→20:51)
[2021-02-18] MEDS: Folic Acid 1 MG TAB PO SCH (08:54)
[2021-02-18] MEDS ORDERED: Nebivolol HCl 2.5 MG TAB PO SCH (16:45)
[2021-02-18 17:59] LABS: Actual Bicarbonate (HCO3a) 25.3 mEq/L (22-28); Base Excess (BEa) 1.3 mEq/L (-2.0 to +3.0); CO2 Tension 37.5 mmHg (35.0-45.0); Calcium, Ionized (arterial) 1.16 mmol/L (1.12-1.30); Carboxyhemoglobin (COHb) 0.1 gm% (0.0-3.0); Hemoglobin (Hb) 9.4 g/dL (12.0-16.0); Potassium - ABG Lab 4.21 mmol/L (3.70-5.30); pH, Arterial 7.45 (7.35-7.45)
[2021-02-18 18:00] LABS: ALV-art Gradient 161.105 mmHg (0-20); O2 Tension (PaO2), arterial 48.7 mmHg (> 70.0); Puncture Site RRA
[2021-02-18] MEDS: Mometasone 100 MCG/Formoterol 5 MCG 120 PUFF INHALER INH SCH (18:56)
[2021-02-18] MEDS ORDERED: Furosemide 20 MG/2 ML VIAL SLOW IVP SCH (19:15)
[2021-02-18] MEDS ORDERED: Citalopram 10 MG TAB PO SCH (20:15)
[2021-02-19] MEDS: Ipratropium/Albuterol Sulfate 4 GM AER IH SCH ×6 (02:11→22:41)
[2021-02-19 05:36] LABS: Hemoglobin 8.7 g/dL (12.0-16.0); Mean Corpuscular HGB CONC 31.3 g/dL (32.0-36.0); Mean Corpuscular Hemoglobin 31.7 pg (27.0-31.0); Mean Platelet Volume 9.6 fL (7.4-10.4); Platelet Count 217 thou/uL (130-400); RBC Distribution Width 18.6 % (11.5-14.5); Red Blood Cell (RBC) Count 2.74 mill/uL (4.20-5.40); White Blood Cell (WBC) Count 73.8 thou/uL (4.8-10.8)
[2021-02-19 06:04] LABS: Anion Gap 13 mmol/L (10-20); BUN (Urea Nitrogen) 39 mg/dL (9.8-20.1); Calc. Creatinine Clearance 74 mL/min (70-130); Calcium 8.6 mg/dL (7.8-10.44); Carbon Dioxide 28 mmol/L (23-31); Chloride 102 mmol/L (98-107); Glucose 98 mg/dL (83-110); Potassium 4.1 mmol/L (3.5-5.1); Sodium 139 mmol/L (136-145)
[2021-02-19] MEDS: Mometasone 100 MCG/Formoterol 5 MCG 120 PUFF INHALER INH SCH ×2 (07:20→19:11)
[2021-02-19] MEDS: Budesonide 0.5 MG/2 ML NEB NEB SCH ×2 (07:25→19:12)
[2021-02-19] MEDS ORDERED: Cefepime 2 GM in Sodium Chloride 0.9% 100 ML IVPB SCH (08:00)
[2021-02-19] MEDS ORDERED: predniSONE 20 MG TAB PO SCH (08:00)
[2021-02-19] MEDS: Cefepime 2 GM in Sodium Chloride 0.9% 100 ML IVPB SCH (08:38)
[2021-02-19] MEDS: predniSONE 20 MG TAB PO SCH (08:40)
[2021-02-19] MEDS: Folic Acid 1 MG TAB PO SCH (08:47)
[2021-02-19] MEDS: Famotidine 20 MG TAB PO SCH ×2 (08:48→20:16)
[2021-02-19] MEDS: Nebivolol HCl 2.5 MG TAB PO SCH (08:48)
[2021-02-19] MEDS: Citalopram 10 MG TAB PO SCH (08:49)
[2021-02-19] MEDS: Apixaban 5 MG TAB PO SCH ×2 (08:49→20:16)
[2021-02-19] MEDS ORDERED: Furosemide 20 MG/2 ML VIAL SLOW IVP SCH (09:30)
[2021-02-19] MEDS ORDERED: Cefdinir 300 MG CAP PO SCH (09:45)
[2021-02-19] MEDS: cycloSPORINE 0.05% Ophthalmic Droperette EA EYE SCH ×2 (10:45→20:51)
[2021-02-19] MEDS: Mirtazapine 15 MG TAB PO SCH ×2 (17:36→20:16)
[2021-02-19] MEDS ORDERED: Citalopram 10 MG TAB PO SCH (19:56)
[2021-02-19] MEDS: Cefdinir 300 MG CAP PO SCH (20:16)
[2021-02-20] MEDS: Ipratropium/Albuterol Sulfate 4 GM AER IH SCH ×6 (02:33→23:03)
[2021-02-20 05:56] LABS: Band 30 % (5-11); Hemoglobin 8.9 g/dL (12.0-16.0); Lymphocytes 15 % (21-51); MDiff Complete? YES; Mean Corpuscular HGB CONC 31.9 g/dL (32.0-36.0); Mean Corpuscular Hemoglobin 32.7 pg (27.0-31.0); Metamyelocyte 4 % (0-0); Monocytes 4 % (0-10); Myelocyte 14 % (0-0); Neutrophil 33 % (42-75); Nucleated RBC 8 % (0); Platelet Count 273 thou/uL (130-400); RBC Distribution Width 18.5 % (11.5-14.5); Red Blood Cell (RBC) Count 2.73 mill/uL (4.20-5.40); White Blood Cell (WBC) Count 62.3 thou/uL (4.8-10.8)
[2021-02-20] MEDS: Mometasone 100 MCG/Formoterol 5 MCG 120 PUFF INHALER INH SCH ×2 (06:41→18:37)
[2021-02-20] MEDS: Budesonide 0.5 MG/2 ML NEB NEB SCH ×2 (06:43→18:37)
[2021-02-20] MEDS: Folic Acid 1 MG TAB PO SCH (09:38)
[2021-02-20] MEDS: Apixaban 5 MG TAB PO SCH ×2 (09:38→20:24)
[2021-02-20] MEDS: Cefdinir 300 MG CAP PO SCH ×2 (09:38→20:25)
[2021-02-20] MEDS: Nebivolol HCl 2.5 MG TAB PO SCH (09:38)
[2021-02-20] MEDS: predniSONE 20 MG TAB PO SCH (09:38)
[2021-02-20] MEDS: Citalopram 10 MG TAB PO SCH (09:39)
[2021-02-20] MEDS: Famotidine 20 MG TAB PO SCH ×2 (09:39→20:25)
[2021-02-20] MEDS: cycloSPORINE 0.05% Ophthalmic Droperette EA EYE SCH ×2 (09:39→20:39)
[2021-02-20] MEDS ORDERED: Furosemide 20 MG/2 ML VIAL SLOW IVP SCH (11:15)
[2021-02-20] MEDS: Mirtazapine 15 MG TAB PO SCH (20:25)
[2021-02-21] MEDS: Ipratropium/Albuterol Sulfate 4 GM AER IH SCH ×6 (02:07→22:06)
[2021-02-21 05:25] LABS: Hemoglobin 8.4 g/dL (12.0-16.0); Platelet Count 268 thou/uL (130-400)
[2021-02-21] MEDS: Mometasone 100 MCG/Formoterol 5 MCG 120 PUFF INHALER INH SCH ×2 (07:05→18:43)
[2021-02-21] MEDS: Budesonide 0.5 MG/2 ML NEB NEB SCH ×2 (07:07→18:42)
[2021-02-21] MEDS: Apixaban 5 MG TAB PO SCH ×2 (08:19→21:04)
[2021-02-21] MEDS: Famotidine 20 MG TAB PO SCH ×2 (08:19→21:04)
[2021-02-21] MEDS: predniSONE 20 MG TAB PO SCH (08:19)
[2021-02-21] MEDS: Cefdinir 300 MG CAP PO SCH ×2 (08:19→21:04)
[2021-02-21] MEDS: Nebivolol HCl 2.5 MG TAB PO SCH (08:19)
[2021-02-21] MEDS: Folic Acid 1 MG TAB PO SCH (08:19)
[2021-02-21] MEDS: Citalopram 10 MG TAB PO SCH (08:19)
[2021-02-21 08:25] LABS: White Blood Cell (WBC) Count 51.7 thou/uL (4.8-10.8)
[2021-02-21] MEDS: cycloSPORINE 0.05% Ophthalmic Droperette EA EYE SCH ×2 (11:52→21:05)
[2021-02-21] MEDS ORDERED: Clotrimazole 1 % Cream 30 GM TUBE TOP SCH (16:00)
[2021-02-21] MEDS: Mirtazapine 15 MG TAB PO SCH (21:04)
[2021-02-21] MEDS ORDERED: Furosemide 20 MG/2 ML VIAL SLOW IVP SCH (22:00)
[2021-02-22] MEDS: Ipratropium/Albuterol Sulfate 4 GM AER IH SCH ×6 (02:11→22:30)
[2021-02-22 05:09] LABS: Hemoglobin 8.7 g/dL (12.0-16.0); Mean Corpuscular HGB CONC 31.7 g/dL (32.0-36.0); Mean Corpuscular Hemoglobin 32.2 pg (27.0-31.0); Mean Platelet Volume 8.7 fL (7.4-10.4); Platelet Count 279 thou/uL (130-400); RBC Distribution Width 19.6 % (11.5-14.5); Red Blood Cell (RBC) Count 2.72 mill/uL (4.20-5.40); White Blood Cell (WBC) Count 41.8 thou/uL (4.8-10.8)
[2021-02-22 05:20] LABS: Anion Gap 10 mmol/L (10-20); BUN (Urea Nitrogen) 35 mg/dL (9.8-20.1); Calc. Creatinine Clearance 75 mL/min (70-130); Calcium 8.9 mg/dL (7.8-10.44); Carbon Dioxide 32 mmol/L (23-31); Chloride 100 mmol/L (98-107); Glucose 92 mg/dL (83-110); Magnesium 1.6 mg/dL (1.6-2.6); Potassium 3.9 mmol/L (3.5-5.1); Sodium 138 mmol/L (136-145)
[2021-02-22 05:41] LABS: Anisocytosis SLIGHT = 6-15 cells (100X) (0-5/hpf); Band 17 % (5-11); Lymphocytes 4 % (21-51); MDiff Complete? YES; Macrocytosis SLIGHT = 6-15 cells (100X) (0-5/hpf); Metamyelocyte 6 % (0-0); Monocytes 9 % (0-10); Myelocyte 18 % (0-0); Neutrophil 46 % (42-75); Nucleated RBC 13 % (0); Polychromasia MODERATE = 3-4 cells (100X) (0-2/hpf)
[2021-02-22] MEDS: Mometasone 100 MCG/Formoterol 5 MCG 120 PUFF INHALER INH SCH ×2 (07:03→18:11)
[2021-02-22] MEDS: Budesonide 0.5 MG/2 ML NEB NEB SCH ×2 (07:03→18:10)
[2021-02-22] MEDS: Famotidine 20 MG TAB PO SCH ×2 (08:51→20:42)
[2021-02-22] MEDS: Cefdinir 300 MG CAP PO SCH ×2 (08:51→20:42)
[2021-02-22] MEDS: Apixaban 5 MG TAB PO SCH ×2 (08:51→20:42)
[2021-02-22] MEDS: Citalopram 10 MG TAB PO SCH (08:51)
[2021-02-22] MEDS: Nebivolol HCl 2.5 MG TAB PO SCH (08:51)
[2021-02-22] MEDS: predniSONE 20 MG TAB PO SCH (08:51)
[2021-02-22] MEDS: Clotrimazole 1 % Cream 30 GM TUBE TOP SCH (08:51)
[2021-02-22] MEDS: Furosemide 20 MG/2 ML VIAL SLOW IVP SCH ×2 (08:51→20:42)
[2021-02-22] MEDS: Folic Acid 1 MG TAB PO SCH (08:51)
[2021-02-22] MEDS: cycloSPORINE 0.05% Ophthalmic Droperette EA EYE SCH ×2 (11:17→20:43)
[2021-02-22] MEDS: Mirtazapine 15 MG TAB PO SCH (20:42)
[2021-02-23] MEDS: Ipratropium/Albuterol Sulfate 4 GM AER IH SCH ×6 (02:44→22:14)
[2021-02-23 05:42] LABS: Hemoglobin 8.3 g/dL (12.0-16.0); Mean Corpuscular HGB CONC 32.7 g/dL (32.0-36.0); Mean Corpuscular Hemoglobin 33.9 pg (27.0-31.0); Red Blood Cell (RBC) Count 2.45 mill/uL (4.20-5.40)
[2021-02-23 06:07] LABS: Band 24 % (5-11); Hypochromia SLIGHT = 6-15 cells (100X) (0-5/hpf); Lymphocytes 10 % (21-51); MDiff Complete? YES; Macrocytosis SLIGHT = 6-15 cells (100X) (0-5/hpf); Mean Platelet Volume 8.8 fL (7.4-10.4); Metamyelocyte 1 % (0-0); Monocytes 8 % (0-10); Neutrophil 56 % (42-75); Nucleated RBC 5 % (0); Platelet Count 206 thou/uL (130-400); Platelet Morphology Comment Appears Adequate; Reactive Lymphocytes 1 % (0-10); White Blood Cell (WBC) Count 28.9 thou/uL (4.8-10.8)
[2021-02-23 06:20] LABS: Anion Gap 11 mmol/L (10-20); BUN (Urea Nitrogen) 31 mg/dL (9.8-20.1); Calc. Creatinine Clearance 76 mL/min (70-130); Calcium 8.4 mg/dL (7.8-10.44); Carbon Dioxide 35 mmol/L (23-31); Chloride 97 mmol/L (98-107); Glucose 82 mg/dL (83-110); Magnesium 1.5 mg/dL (1.6-2.6); Potassium 3.7 mmol/L (3.5-5.1); Sodium 139 mmol/L (136-145)
[2021-02-23] MEDS: Mometasone 100 MCG/Formoterol 5 MCG 120 PUFF INHALER INH SCH ×2 (07:40→18:40)
[2021-02-23] MEDS: Budesonide 0.5 MG/2 ML NEB NEB SCH ×2 (07:41→18:40)
[2021-02-23] MEDS: predniSONE 20 MG TAB PO SCH (09:20)
[2021-02-23] MEDS: Famotidine 20 MG TAB PO SCH ×2 (09:20→20:35)
[2021-02-23] MEDS: Citalopram 10 MG TAB PO SCH (09:21)
[2021-02-23] MEDS: Apixaban 5 MG TAB PO SCH ×2 (09:21→20:36)
[2021-02-23] MEDS: Cefdinir 300 MG CAP PO SCH ×2 (09:21→20:35)
[2021-02-23] MEDS: Folic Acid 1 MG TAB PO SCH (09:21)
[2021-02-23] MEDS: Nebivolol HCl 2.5 MG TAB PO SCH (09:21)
[2021-02-23] MEDS: Clotrimazole 1 % Cream 30 GM TUBE TOP SCH (09:22)
[2021-02-23] MEDS: Furosemide 20 MG/2 ML VIAL SLOW IVP SCH ×2 (09:22→20:36)
[2021-02-23] MEDS: cycloSPORINE 0.05% Ophthalmic Droperette EA EYE SCH ×2 (09:22→20:35)
[2021-02-23] MEDS ORDERED: Magnesium Oxide 400 MG TAB PO SCH (12:00)
[2021-02-23] MEDS: Mirtazapine 15 MG TAB PO SCH (20:36)
[2021-02-24] MEDS: Ipratropium/Albuterol Sulfate 4 GM AER IH SCH ×3 (02:54→09:52)
[2021-02-24 06:13] LABS: Hemoglobin 8.1 g/dL (12.0-16.0); Mean Corpuscular HGB CONC 32.3 g/dL (32.0-36.0); Mean Corpuscular Hemoglobin 34.1 pg (27.0-31.0); Mean Platelet Volume 9.1 fL (7.4-10.4); Platelet Count 196 thou/uL (130-400); RBC Distribution Width 22.9 % (11.5-14.5); Red Blood Cell (RBC) Count 2.38 mill/uL (4.20-5.40); White Blood Cell (WBC) Count 21.5 thou/uL (4.8-10.8)
[2021-02-24] MEDS: Budesonide 0.5 MG/2 ML NEB NEB SCH (06:29)
[2021-02-24] MEDS: Mometasone 100 MCG/Formoterol 5 MCG 120 PUFF INHALER INH SCH (06:31)
[2021-02-24 06:32] LABS: Anion Gap 9 mmol/L (10-20); BUN (Urea Nitrogen) 28 mg/dL (9.8-20.1); Calc. Creatinine Clearance 82 mL/min (70-130); Calcium 8.6 mg/dL (7.8-10.44); Carbon Dioxide 37 mmol/L (23-31); Chloride 96 mmol/L (98-107); Glucose 87 mg/dL (83-110); Magnesium 1.6 mg/dL (1.6-2.6); Potassium 3.8 mmol/L (3.5-5.1); Sodium 138 mmol/L (136-145)
[2021-02-24 07:44] LABS: Anisocytosis MODERATE=16-30 cells (100X) (0-5/hpf); Band 31 % (5-11); Lymphocytes 2 % (21-51); MDiff Complete? YES; Metamyelocyte 7 % (0-0); Monocytes 2 % (0-10); Myelocyte 5 % (0-0); Neutrophil 52 % (42-75); Nucleated RBC 10 % (0); Platelet Morphology Comment Appears Adequate; Polychromasia MARKED = >4 cells (100X) (0-2/hpf); Reactive Lymphocytes 1 % (0-10)
[2021-02-24] MEDS: Apixaban 5 MG TAB PO SCH (08:52)
[2021-02-24] MEDS: predniSONE 20 MG TAB PO SCH (08:52)
[2021-02-24] MEDS: Cefdinir 300 MG CAP PO SCH (08:53)
[2021-02-24] MEDS: Citalopram 10 MG TAB PO SCH (08:53)
[2021-02-24] MEDS: Famotidine 20 MG TAB PO SCH (08:53)
[2021-02-24] MEDS: Folic Acid 1 MG TAB PO SCH (08:54)
[2021-02-24] MEDS: Furosemide 20 MG/2 ML VIAL SLOW IVP SCH (08:54)
[2021-02-24] MEDS: cycloSPORINE 0.05% Ophthalmic Droperette EA EYE SCH (08:55)
[2021-02-24] MEDS: Nebivolol HCl 2.5 MG TAB PO SCH (08:55)
[2021-02-24] MEDS: Clotrimazole 1 % Cream 30 GM TUBE TOP SCH (08:56)
[2021-02-24 11:35] VITALS: BP 124/73; TEMP 98.1
== END 2021-02-24 13:33 | disposition home health service (06) | DRG 189 ==
LOC: ERS 18:36 → ERHOLD 20:37 → 2SE 22:46
PROVIDERS: ADMIT Internal Medicine; ATTEND Family Medicine
DX: J96.21 Acute and chronic respiratory failure with hypoxia (principal); E87.2 Acidosis; J44.1 Chronic obstructive pulmonary disease with (acute) exacerbation; C34.90 Malignant neoplasm of unspecified part of unspecified bronchus or lung; I27.82 Chronic pulmonary embolism; K59.00 Constipation, unspecified; Z99.81 Dependence on supplemental oxygen; Z51.5 Encounter for palliative care; Z66 Do not resuscitate; Z86.718 Personal history of other venous thrombosis and embolism; Z79.01 Long term (current) use of anticoagulants; Z86.711 Personal history of pulmonary embolism; F41.9 Anxiety disorder, unspecified; F17.210 Nicotine dependence, cigarettes, uncomplicated; D63.8 Anemia in other chronic diseases classified elsewhere; I10 Essential (primary) hypertension; F32.9 Major depressive disorder, single episode, unspecified; I48.0 Paroxysmal atrial fibrillation; Z90.710 Acquired absence of both cervix and uterus; T45.1X5A Adverse effect of antineoplastic and immunosuppressive drugs, initial encounter; D72.823 Leukemoid reaction; D53.9 Nutritional anemia, unspecified; D69.59 Other secondary thrombocytopenia
CPT/HCPCS: 36415; 36600; 71045; 71275; 80048; 80053; 80076; 80202; 81001; 82248; 82550; 82553; 82607; 82746; 82805; 83605; 83615; 83735; 84100; 84443; 84484; 84550; 85014; 85018; 85025; 85027; 85048; 85049; 85060; 87040; 87635; 93005; 93306; 94640; 94760; 96365; 96367; J0692; J1940; J1956; J2920; J3370; J3490; J7050; J7512; J7620; J7626; Q9967; U0003; U0005

== ENCOUNTER 2021-02-28 12:05 | Inpatient (IN) | payer MEDICARE ==
[2021-02-28] MEDS ORDERED: methylPREDNISolone Sod Succ/PF 125 MG/2 ML VIAL ONE (12:28)
[2021-02-28 13:08] LABS: Mean Corpuscular HGB CONC 31.6 g/dL (32.0-36.0); RBC Distribution Width 23.7 % (11.5-14.5); Red Blood Cell (RBC) Count 2.84 mill/uL (4.20-5.40); White Blood Cell (WBC) Count 10.3 thou/uL (4.8-10.8)
[2021-02-28 13:30] LABS: ALT (SGPT) 20 U/L (8-55); AST (SGOT) 36 U/L (5-34); Albumin 3.3 g/dL (3.4-4.8); Alkaline Phosphatase 115 U/L (40-110); Anion Gap 14 mmol/L (10-20); BUN (Urea Nitrogen) 18 mg/dL (9.8-20.1); Calc. Creatinine Clearance 0 mL/min (70-130); Calcium 9.2 mg/dL (7.8-10.44); Carbon Dioxide 33 mmol/L (23-31); Chloride 94 mmol/L (98-107); Globulin 2.5 g/dL (2.4-3.5); Glucose 98 mg/dL (83-110); Potassium 3.9 mmol/L (3.5-5.1); Protein, Total 5.8 g/dL (5.8-8.1); Sodium 137 mmol/L (136-145)
[2021-02-28 13:45] LABS: Anisocytosis MODERATE=16-30 cells (100X) (0-5/hpf); Band 51 % (5-11); Lymphocytes 1 % (21-51); MDiff Complete? YES; Metamyelocyte 3 % (0-0); Monocytes 4 % (0-10); Myelocyte 3 % (0-0); Neutrophil 38 % (42-75); Platelet Count 113 thou/uL (130-400); Poikilocytosis SLIGHT = 6-15 cells (100X) (0-5/hpf); Polychromasia SLIGHT = 2-3 cells (100X) (0-2/hpf)
[2021-02-28 13:46] LABS: CKMB 2.5 ng/mL (0-6.6)
[2021-02-28] MEDS ORDERED: Cefepime 2 GM VIAL ONE (14:13)
[2021-02-28 14:28] LABS: SARS-CoV-2 NAA Rapid Test Not Detected (NotDetected)
[2021-02-28 14:30] LABS: Analyzer IN Cardio ER; Base Excess 6.8 mEq/L (-2.0 to +3.0); Calcium, Ionized (venous) 1.07 mmol/L (1.16-1.32); Chloride (VBG) 95 mmol/L (98-106); Hemoglobin (Hb) 10.1 g/dL (11.7-16.1); Potassium (VBG) 3.83 mmol/L (3.70-5.30); Sodium 134.3 mmol/L (133-146); pH (venous) 7.44 (7.32-7.43)
[2021-02-28 14:32] LABS: Actual Bicarbonate (HCO3v) 32 mEq/L (22-28)
[2021-02-28] MEDS ORDERED: Vancomycin 1.5 GRAM/300 ML BAG 1.5 GM in Premix Bag 1 BAG IVPB SCH (15:15)
[2021-02-28] MEDS ORDERED: Acetaminophen 325 MG TAB PO PRN (15:24)
[2021-02-28 17:43] LABS: Troponin I 0.046 ng/mL (< 0.028)
[2021-02-28] MEDS ORDERED: Benzonatate 100 MG CAP PO SCH (18:15)
[2021-02-28 18:45] VITALS: BMI 23.1
[2021-02-28] MEDS ORDERED: Furosemide 40 MG/4 ML VIAL SLOW IVP SCH (19:00)
[2021-02-28] MEDS: methylPREDNISolone Sod Succ 40 MG VIAL IVP SCH (19:19)
[2021-02-28] MEDS: guaiFENesin ER 600 MG TAB PO SCH ×2 (19:20→19:36)
[2021-02-28 19:40] LABS: Troponin I 0.045 ng/mL (< 0.028)
[2021-02-28] MEDS ORDERED: GUAIFENESIN SF SOLN 200 MG/10 ML UDCUP PO SCH (21:30)
[2021-03-01] MEDS: Cefepime 1 GM in Sodium Chloride 0.9% 100 ML IVPB SCH ×2 (02:05→14:33)
[2021-03-01] MEDS: methylPREDNISolone Sod Succ 40 MG VIAL IVP SCH ×4 (02:06→17:18)
[2021-03-01 04:14] LABS: Anion Gap 13 mmol/L (10-20); BUN (Urea Nitrogen) 22 mg/dL (9.8-20.1); Calc. Creatinine Clearance 76 mL/min (70-130); Calcium 8.4 mg/dL (7.8-10.44); Carbon Dioxide 32 mmol/L (23-31); Chloride 94 mmol/L (98-107); Glucose 131 mg/dL (83-110); Potassium 3.5 mmol/L (3.5-5.1); Sodium 135 mmol/L (136-145)
[2021-03-01 05:23] LABS: Anisocytosis MODERATE=16-30 cells (100X) (0-5/hpf); Band 30 % (5-11); Hemoglobin 8.9 g/dL (12.0-16.0); Lymphocytes 4 % (21-51); MDiff Complete? YES; Mean Corpuscular HGB CONC 32.3 g/dL (32.0-36.0); Mean Platelet Volume 10.2 fL (7.4-10.4); Monocytes 2 % (0-10); Neutrophil 64 % (42-75); Nucleated RBC 2 % (0); Platelet Count 85 thou/uL (130-400); Platelet Morphology Comment Appears Decreased; Polychromasia SLIGHT = 2-3 cells (100X) (0-2/hpf); RBC Distribution Width 23.5 % (11.5-14.5); Red Blood Cell (RBC) Count 2.55 mill/uL (4.20-5.40); White Blood Cell (WBC) Count 11.7 thou/uL (4.8-10.8)
[2021-03-01] MEDS: Furosemide 40 MG/4 ML VIAL SLOW IVP SCH ×2 (06:45→14:34)
[2021-03-01] MEDS ORDERED: Apixaban 5 MG TAB PO SCH (10:30)
[2021-03-01] MEDS ORDERED: Senokot S 8.6-50 MG TAB PO PRN (10:43)
[2021-03-01] MEDS ORDERED: Cepastat Lozenges 1 LOZ PO PRN (10:46)
[2021-03-01] MEDS ORDERED: Ondansetron ODT 4 MG TAB PO PRN (10:46)
[2021-03-01] MEDS ORDERED: Loratadine 10 MG TAB PO PRN (10:46)
[2021-03-01] MEDS ORDERED: Calcium Carbonate 500 MG ChewTAB PO PRN (10:46)
[2021-03-01] MEDS ORDERED: hydrALAZINE 20 MG/ML VIAL SLOW IVP PRN (10:46)
[2021-03-01] MEDS ORDERED: Loperamide HCl 2 MG CAP PO PRN (10:46)
[2021-03-01] MEDS ORDERED: Melatonin 3 MG TAB PO PRN (10:46)
[2021-03-01] MEDS ORDERED: Sodium Chloride 0.65% Nasal 44 ML BOT EA NARE PRN (10:46)
[2021-03-01] MEDS ORDERED: Ondansetron PF 4 MG/2 ML Vial IVP PRN (10:46)
[2021-03-01] MEDS ORDERED: Bisacodyl 5 MG TAB PO PRN (10:46)
[2021-03-01] MEDS: Benzonatate 100 MG CAP PO PRN ×2 (14:39→20:51)
[2021-03-01] MEDS: Vancomycin 1.5 GRAM/300 ML BAG 1.5 GM in Premix Bag 1 BAG IVPB SCH (17:18)
[2021-03-01] MEDS: Budesonide 0.5 MG/2 ML NEB NEB SCH (19:15)
[2021-03-01] MEDS: GUAIFENESIN SF SOLN 200 MG/10 ML UDCUP PO PRN (20:47)
[2021-03-01] MEDS: Mirtazapine 15 MG Soltab PO SCH (20:47)
[2021-03-01] MEDS: Apixaban 5 MG TAB PO SCH (20:47)
[2021-03-01] MEDS: guaiFENesin ER 600 MG TAB PO SCH (20:49)
[2021-03-02] MEDS: methylPREDNISolone Sod Succ 40 MG VIAL IVP SCH ×4 (00:59→21:47)
[2021-03-02] MEDS: Cefepime 1 GM in Sodium Chloride 0.9% 100 ML IVPB SCH ×2 (03:19→14:12)
[2021-03-02 04:08] LABS: #Lymphocytes 0.3 thou/uL (1.20-3.40); #Monocytes 0.5 thou/uL (0.11-0.59); #Neutrophils 7.4 thou/uL (1.40-6.50); %Eosinophils 0.3 % (0.0-10.0); %Lymphocytes 3.4 % (21.0-51.0); %Monocytes 6.2 % (0.0-10.0); %Neutrophils 90.1 % (42.0-75.0); Hemoglobin 9.4 g/dL (12.0-16.0); Mean Corpuscular HGB CONC 33.4 g/dL (32.0-36.0); Mean Corpuscular Hemoglobin 36.4 pg (27.0-31.0); Mean Platelet Volume 10.2 fL (7.4-10.4); Platelet Count 87 thou/uL (130-400); RBC Distribution Width 22.6 % (11.5-14.5); Red Blood Cell (RBC) Count 2.58 mill/uL (4.20-5.40); White Blood Cell (WBC) Count 8.2 thou/uL (4.8-10.8)
[2021-03-02 04:11] LABS: ALT (SGPT) 24 U/L (8-55); AST (SGOT) 34 U/L (5-34); Albumin 2.8 g/dL (3.4-4.8); Alkaline Phosphatase 81 U/L (40-110); Anion Gap 13 mmol/L (10-20); BUN (Urea Nitrogen) 25 mg/dL (9.8-20.1); Bilirubin, Total 0.8 mg/dL (0.2-1.2); Calc. Creatinine Clearance 67 mL/min (70-130); Calcium 8.2 mg/dL (7.8-10.44); Carbon Dioxide 34 mmol/L (23-31); Chloride 92 mmol/L (98-107); Glucose 141 mg/dL (83-110); Magnesium 1.5 mg/dL (1.6-2.6); Phosphorus 3.5 mg/dL (2.3-4.7); Protein, Total 4.8 g/dL (5.8-8.1); Sodium 136 mmol/L (136-145)
[2021-03-02 04:23] LABS: Band 12 % (5-11); Lymphocytes 3 % (21-51); MDiff Complete? YES; Macrocytosis SLIGHT = 6-15 cells (100X) (0-5/hpf); Monocytes 2 % (0-10); Neutrophil 83 % (42-75); Polychromasia SLIGHT = 2-3 cells (100X) (0-2/hpf)
[2021-03-02 04:25] LABS: Potassium 2.9 mmol/L (3.5-5.1)
[2021-03-02] MEDS ORDERED: Electrolyte Replacement Protocol FS PRN (05:45)
[2021-03-02] MEDS ORDERED: Magnesium 2 GM/50 ML 2 GM in Premix Bag 1 BAG IVPB SCH (06:00)
[2021-03-02] MEDS: Furosemide 40 MG/4 ML VIAL SLOW IVP SCH ×2 (06:33→14:12)
[2021-03-02] MEDS: Potassium Chloride 20 MEQ in Premix Bag 1 BAG IVPB SCH ×2 (06:34→09:14)
[2021-03-02] MEDS: Budesonide 0.5 MG/2 ML NEB NEB SCH ×3 (08:16→19:18)
[2021-03-02] MEDS: Nebivolol HCl 2.5 MG TAB PO SCH (08:56)
[2021-03-02] MEDS: Citalopram 10 MG TAB PO SCH (08:56)
[2021-03-02] MEDS: Multivitamin W/ Minerals 1 TAB PO SCH (08:57)
[2021-03-02] MEDS: guaiFENesin ER 600 MG TAB PO SCH ×2 (08:57→21:40)
[2021-03-02] MEDS: Potassium Chloride 20 MEQ TAB PO SCH ×2 (08:57→16:56)
[2021-03-02] MEDS: Cyanocobalamin (Vitamin B-12) 1,000 MCG TAB PO SCH (08:58)
[2021-03-02] MEDS: Folic Acid 1 MG TAB PO SCH (08:58)
[2021-03-02] MEDS: Saccharomyces boulardii 250 MG CAP PO SCH (08:58)
[2021-03-02] MEDS: Apixaban 5 MG TAB PO SCH ×2 (09:00→21:47)
[2021-03-02 15:55] LABS: Vancomycin, Trough 16.2 ug/mL
[2021-03-02] MEDS: Vancomycin 1.5 GRAM/300 ML BAG 1.5 GM in Premix Bag 1 BAG IVPB SCH (16:56)
[2021-03-02] MEDS: Mirtazapine 15 MG Soltab PO SCH (21:46)
[2021-03-02] MEDS: GUAIFENESIN SF SOLN 200 MG/10 ML UDCUP PO PRN (21:47)
[2021-03-02] MEDS: Benzonatate 100 MG CAP PO PRN (21:49)
[2021-03-03] MEDS: Cefepime 1 GM in Sodium Chloride 0.9% 100 ML IVPB SCH ×2 (02:26→13:03)
[2021-03-03 04:10] LABS: BUN (Urea Nitrogen) 27 mg/dL (9.8-20.1); Calc. Creatinine Clearance 65 mL/min (70-130); Calcium 8.6 mg/dL (7.8-10.44); Glucose 149 mg/dL (83-110); Magnesium 1.8 mg/dL (1.6-2.6)
[2021-03-03 04:19] LABS: Anion Gap 16 mmol/L (10-20); Carbon Dioxide 37 mmol/L (23-31); Chloride 91 mmol/L (98-107); Sodium 141 mmol/L (136-145)
[2021-03-03 04:27] LABS: Potassium 2.9 mmol/L (3.5-5.1)
[2021-03-03] MEDS ORDERED: Magnesium 2 GM/50 ML 2 GM in Premix Bag 1 BAG IVPB SCH (05:00)
[2021-03-03 05:05] LABS: Anisocytosis MODERATE=16-30 cells (100X) (0-5/hpf); Band 24 % (5-11); Hemoglobin 9.4 g/dL (12.0-16.0); Lymphocytes 2 % (21-51); MDiff Complete? YES; Mean Corpuscular HGB CONC 32.8 g/dL (32.0-36.0); Mean Platelet Volume 9.5 fL (7.4-10.4); Monocytes 3 % (0-10); Neutrophil 71 % (42-75); Platelet Count 92 thou/uL (130-400); Platelet Morphology Comment Appears Decreased; RBC Distribution Width 22.4 % (11.5-14.5); White Blood Cell (WBC) Count 10.7 thou/uL (4.8-10.8)
[2021-03-03] MEDS: Furosemide 40 MG/4 ML VIAL SLOW IVP SCH ×2 (05:44→09:28)
[2021-03-03] MEDS: Potassium Chloride 20 MEQ TAB PO SCH ×2 (05:44→09:44)
[2021-03-03] MEDS: methylPREDNISolone Sod Succ 40 MG VIAL IVP SCH ×3 (05:44→17:53)
[2021-03-03] MEDS: Cyanocobalamin (Vitamin B-12) 1,000 MCG TAB PO SCH (09:28)
[2021-03-03] MEDS: Nebivolol HCl 2.5 MG TAB PO SCH (09:28)
[2021-03-03] MEDS: Folic Acid 1 MG TAB PO SCH (09:28)
[2021-03-03] MEDS: Saccharomyces boulardii 250 MG CAP PO SCH (09:28)
[2021-03-03] MEDS: guaiFENesin ER 600 MG TAB PO SCH ×3 (09:28→20:55)
[2021-03-03] MEDS: Multivitamin W/ Minerals 1 TAB PO SCH (09:28)
[2021-03-03] MEDS: Citalopram 10 MG TAB PO SCH (09:28)
[2021-03-03] MEDS: Apixaban 5 MG TAB PO SCH ×2 (09:28→20:55)
[2021-03-03] MEDS: Budesonide 0.5 MG/2 ML NEB NEB SCH (19:20)
[2021-03-03] MEDS: Benzonatate 100 MG CAP PO PRN (20:55)
[2021-03-03] MEDS: Mirtazapine 15 MG Soltab PO SCH (20:55)
[2021-03-04] MEDS: methylPREDNISolone Sod Succ 40 MG VIAL IVP SCH ×2 (00:55→08:45)
[2021-03-04] MEDS: Cefepime 1 GM in Sodium Chloride 0.9% 100 ML IVPB SCH ×2 (02:57→13:25)
[2021-03-04] MEDS: Budesonide 0.5 MG/2 ML NEB NEB SCH ×2 (07:25→18:57)
[2021-03-04] MEDS: Folic Acid 1 MG TAB PO SCH (08:44)
[2021-03-04] MEDS: Cyanocobalamin (Vitamin B-12) 1,000 MCG TAB PO SCH (08:44)
[2021-03-04] MEDS: Citalopram 10 MG TAB PO SCH (08:44)
[2021-03-04] MEDS: Apixaban 5 MG TAB PO SCH ×2 (08:44→20:37)
[2021-03-04] MEDS: Saccharomyces boulardii 250 MG CAP PO SCH ×2 (08:44→08:52)
[2021-03-04] MEDS: Furosemide 40 MG/4 ML VIAL SLOW IVP SCH (08:44)
[2021-03-04] MEDS: Nebivolol HCl 2.5 MG TAB PO SCH (08:44)
[2021-03-04] MEDS: guaiFENesin ER 600 MG TAB PO SCH ×2 (08:44→20:37)
[2021-03-04] MEDS: Multivitamin W/ Minerals 1 TAB PO SCH (08:44)
[2021-03-04 12:04] LABS: Anion Gap 15 mmol/L (10-20); BUN (Urea Nitrogen) 36 mg/dL (9.8-20.1); Calc. Creatinine Clearance 59 mL/min (70-130); Calcium 9.9 mg/dL (7.8-10.44); Carbon Dioxide Greater than 37 mmol/L (23-31); Chloride 85 mmol/L (98-107); Glucose 153 mg/dL (83-110); Potassium 4.7 mmol/L (3.5-5.1); Sodium 139 mmol/L (136-145)
[2021-03-04] MEDS: GUAIFENESIN SF SOLN 200 MG/10 ML UDCUP PO PRN (13:26)
[2021-03-04] MEDS: Mirtazapine 15 MG Soltab PO SCH (20:37)
[2021-03-05] MEDS: Cefepime 1 GM in Sodium Chloride 0.9% 100 ML IVPB SCH ×2 (02:34→15:52)
[2021-03-05] MEDS: Budesonide 0.5 MG/2 ML NEB NEB SCH (07:13)
[2021-03-05 07:48] VITALS: TEMP 97.5
[2021-03-05] MEDS ORDERED: predniSONE 20 MG TAB PO SCH (08:00)
[2021-03-05] MEDS: Citalopram 10 MG TAB PO SCH (08:42)
[2021-03-05] MEDS: Nebivolol HCl 2.5 MG TAB PO SCH (08:43)
[2021-03-05] MEDS: Saccharomyces boulardii 250 MG CAP PO SCH (08:43)
[2021-03-05] MEDS: Multivitamin W/ Minerals 1 TAB PO SCH (08:43)
[2021-03-05] MEDS: Apixaban 5 MG TAB PO SCH (08:43)
[2021-03-05] MEDS: guaiFENesin ER 600 MG TAB PO SCH (08:43)
[2021-03-05] MEDS: Folic Acid 1 MG TAB PO SCH (08:44)
[2021-03-05] MEDS: Cyanocobalamin (Vitamin B-12) 1,000 MCG TAB PO SCH (08:44)
[2021-03-05] MEDS ORDERED: Furosemide 20 MG TAB PO SCH (09:00)
[2021-03-05 11:44] VITALS: BP 107/62
== END 2021-03-05 16:05 | disposition hospice, home (50) | DRG 871 ==
LOC: ERS 12:05 → ERHOLD 14:19 → IMCU/EMU 18:08 → 2NO 03-03 23:54
PROVIDERS: ADMIT Internal Medicine; ATTEND Hospitalist
DX: A41.9 Sepsis, unspecified organism (principal); J18.9 Pneumonia, unspecified organism; J96.21 Acute and chronic respiratory failure with hypoxia; I50.33 Acute on chronic diastolic (congestive) heart failure; J44.1 Chronic obstructive pulmonary disease with (acute) exacerbation; J44.0 Chronic obstructive pulmonary disease with (acute) lower respiratory infection; C34.90 Malignant neoplasm of unspecified part of unspecified bronchus or lung; I11.0 Hypertensive heart disease with heart failure; I48.0 Paroxysmal atrial fibrillation; D53.9 Nutritional anemia, unspecified; D69.6 Thrombocytopenia, unspecified; I27.23 Pulmonary hypertension due to lung diseases and hypoxia; I07.1 Rheumatic tricuspid insufficiency; F32.9 Major depressive disorder, single episode, unspecified; F41.9 Anxiety disorder, unspecified; R53.81 Other malaise; Z20.822 Contact with and (suspected) exposure to COVID-19; E87.6 Hypokalemia; E83.42 Hypomagnesemia; Z88.1 Allergy status to other antibiotic agents; Z88.0 Allergy status to penicillin; Z79.51 Long term (current) use of inhaled steroids; Z79.899 Other long term (current) drug therapy; Z92.21 Personal history of antineoplastic chemotherapy; Z86.718 Personal history of other venous thrombosis and embolism; Z86.711 Personal history of pulmonary embolism; Z87.891 Personal history of nicotine dependence; Z79.01 Long term (current) use of anticoagulants
CPT/HCPCS: 0240U; 36415; 71045; 80048; 80053; 80202; 82553; 82805; 83735; 83880; 84100; 84484; 85025; 85379; 87040; 93005; 93798; 94640; 96365; 96367; 96375; 97139; J0692; J1940; J2920; J2930; J3370; J3475; J3480; J3490; J7512; J7620; J7626